=== PATIENT | male | born 1955 | race Caucasian/White ===

== ENCOUNTER 2018-02-22 18:23 | Emergency (ER) | payer BC, OTHER ==
[2018-02-22] MEDS ORDERED: ONDANSETRON ODT 4 MG TAB (6 TAB/ER DISP) PO PRN (19:39)
[2018-02-22] MEDS ORDERED: CLONIDINE 0.2 MG/24 HR PATCH.TDWK TD ONE (19:39)
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
[2018-02-22 19:53] VITALS: BP 132/65
== END 2018-02-22 19:53 | disposition home or self-care (01) ==
LOC: ER 18:23
DX: T40.601A Poisoning by unspecified narcotics, accidental (unintentional), initial encounter (principal); F17.200 Nicotine dependence, unspecified, uncomplicated; X58.XXXA Exposure to other specified factors, initial encounter
CPT/HCPCS: 99284; J3490

== ENCOUNTER 2018-08-16 09:18 | Emergency (ER) | payer SELFPAY ==
--- NOTE | 2018-08-16 09:58 | ER Document Report ---
HPI - HPI Patient complains to provider of: Constipation Onset: Other - 4 days Quality of pain: Cramping, Pressure Pain Level: 3 Context: Patient presents complaining of constipation for the past 4 days. Patient has used a Fleet enema at home without improvement of his symptoms. Patient states that he typically has a bowel movement every day. Patient states that he has not been drinking as much water recently and has been drinking more soda which he feels is responsible for his symptoms. Patient does take narcotics chronically for back pain. Associated Symptoms: Other - Obstipation. denies: Fever, Nausea, Vomiting Exacerbated by: Denies Relieved by: Denies Similar symptoms previously: No Recently seen / treated by doctor: No - ROS ROS below otherwise negative: Yes Systems Reviewed and Negative: Yes All other systems reviewed and negative - CONSTITUTIONAL Constitutional: DENIES: Fever, Chills - GASTROINTESTINAL Gastrointestinal: REPORTS: Constipation. DENIES: Abdominal Pain, Nausea, Patient vomiting Notes: Patient complains of hemorrhoids - MUSCULOSKELETAL Musculoskeletal: REPORTS: Back Pain - Chronic. DENIES: Extremity pain - DERM Skin Color: Normal Skin Problems: None Past Medical History - General Information source: Patient - Social History Smoking Status: Current Every Day Smoker Chew tobacco use (# tins/day): No Smoking Education Provided: Yes Frequency of alcohol use: None Drug Abuse: None Occupation: [employer] Family History: Reviewed & Not Pertinent Patient has suicidal ideation: No Patient has homicidal ideation: No Renal/ Medical History: Denies: Hx Peritoneal Dialysis Musculoskeletal Medical History: Reports Other - Chronic back pain Past Surgical History: Reports: Other - Cyst removal Vertical Provider Document - CONSTITUTIONAL Agree With Documented VS: Yes Exam Limitations: No Limitations General Appearance: WD/WN, No Apparent Distress - INFECTION CONTROL TRAVEL OUTSIDE OF THE [place] IN LAST 30 DAYS: No - HEENT HEENT: Atraumatic, Normocephalic - NECK Neck: Normal Inspection, Supple - RESPIRATORY Respiratory: Breath Sounds Normal, No Respiratory Distress - CARDIOVASCULAR Cardiovascular: Regular Rate, Regular Rhythm - GI/ABDOMEN Gastrointestinal: Abdomen Soft, Abdomen Non-Tender, No Organomegaly, Normal Bowel Sounds - BACK Back: Normal Inspection. negative: CVA Tenderness-Right, CVA Tenderness-Left - MUSCULOSKELETAL/EXTREMETIES Musculoskeletal/Extremeties: VAZQUEZ LANGLEY - NEURO Level of Consciousness: Awake, Alert, Appropriate Motor/Sensory: No Motor Deficit - DERM Integumentary: Warm, Dry, No Rash Course - Re-evaluation Re-evalutation: 08/16/18 10:57 Patient with good response after enema and feels much better, patient states he is ready to be discharged. Abdomen soft nontender. - Vital Signs Vital signs: Temp Pulse Resp BP Pulse Ox 97.7 F 86 16 157/79 H 94 08/16/18 09:22 08/16/18 09:22 08/16/18 09:22 08/16/18 09:22 08/16/18 09:22 - Diagnostic Test Radiology reviewed: Image reviewed, Reports reviewed Discharge - Discharge Clinical Impression: Constipation Qualifiers: Constipation type: unspecified constipation type Qualified Code(s): K59.00 - Constipation, unspecified Condition: Stable Disposition: HOME, SELF-CARE Instructions: Constipation ([facility]) Additional Instructions: Return immediately for any new or worsening symptoms Followup with your primary care provider, call tomorrow to make a followup appointment Take a stool softener [id number] to help prevent constipation. Stay well- hydrated Forms: Smoking Cessation Education Referrals: [facility] [Provider Group] - Follow up as needed
[2018-08-16] MEDS ORDERED: MINERAL OIL 30 ML UDCUP PR ONE (10:05)
[2018-08-16] MEDS ORDERED: MAGNESIUM CITRATE 296 ML BOTTLE PO ONE (10:06)
--- NOTE | 2018-08-16 10:15 | RADIOLOGY REPORT (SQ) ---
EXAM DESCRIPTION: KUB/ABDOMEN (SINGLE VIEW) COMPLETED DATE/TIME: 08/16/2018 10:01 am REASON FOR STUDY: constipation COMPARISON: None. NUMBER OF VIEWS: Two views. TECHNIQUE: Supine and erect/decubitus radiographic images of the abdomen acquired. LIMITATIONS: None. FINDINGS: FREE AIR: None. No abnormal gas collections. LUNG BASES: Clear. BOWEL GAS PATTERN: Nonobstructive pattern. No dilated loops or air fluid levels. CALCIFICATIONS: No suspicious calcifications. SOFT TISSUES: No gross mass or suggestion of organomegaly. HARDWARE: None in the abdomen. BONES: No acute fracture. No worrisome bone lesions. OTHER: No other significant finding. IMPRESSION: NO RADIOGRAPHIC EVIDENCE FOR ACUTE ABDOMINAL DISEASE. TECHNICAL DOCUMENTATION: JOB ID: [id number] [employer]- All Rights Reserved Reading location - IP/workstation name: [email or web address]
[2018-08-16 11:16] VITALS: BP 139/80
== END 2018-08-16 11:15 | disposition home or self-care (01) ==
LOC: ER 09:18
DX: K59.00 Constipation, unspecified (principal); M54.9 Dorsalgia, unspecified; G89.29 Other chronic pain; Z79.899 Other long term (current) drug therapy; F17.200 Nicotine dependence, unspecified, uncomplicated
CPT/HCPCS: 99283; 74018; J3490 ×2

== ENCOUNTER 2018-09-01 05:12 | Emergency (ER) | payer SELFPAY ==
--- NOTE | 2018-09-01 05:32 | RADIOLOGY REPORT (SQ) ---
EXAM DESCRIPTION: XR FOREARM 2 VIEWS COMPLETED DATE/TME: 09/01/2018 00:00 CLINICAL HISTORY: 63 years, Male, needle stuck in arm COMPARISON: None. NUMBER OF VIEWS: Two TECHNIQUE: Two views of the left forearm LIMITATIONS: None. FINDINGS: There are two linear hyperdensities near the volar aspect of the proximal forearm with the largest measuring 1.3 cm and the smaller one measuring 0.5 cm. There is no acute fracture or dislocation. IMPRESSION: Two linear hyperdense foreign bodies near the volar aspect of the proximal forearm. 2011 [employer]- All Rights Reserved
[2018-09-01] MEDS ORDERED: LIDOCAINE 1% INJ-PF (10 MG/ML) 30 ML SDV INJ ONE (06:07)
[2018-09-01] MEDS ORDERED: DIPH/PERTUSS(ACELL)/TETANUS VAC/PF 0.5 ML SYR (>=10YO) IM ONE (06:11)
--- NOTE | 2018-09-01 06:11 | ER Document Report ---
ED Foreign Body - General Chief Complaint: Foreign Body Stated Complaint: ARM PAIN Time Seen by Provider: 09/01/18 06:03 Mode of Arrival: Ambulatory Information source: Patient Notes: Patient was injecting heroine into his LUE when the needle broke. Patient says this happened just prior to arrival. TRAVEL OUTSIDE OF THE [place] IN LAST 30 DAYS: No - HPI Location of foreign body: Upper extremity Onset: Just prior to arrival Onset/Duration: Sudden Quality of pain: Achy Severity: Mild Context: Self-inflicted Associated symptoms: None Exacerbated by: Denies Relieved by: Denies Similar symptoms previously: No Recently seen / treated by doctor: No - Related Data Allergies/Adverse Reactions: Penicillins Allergy (Verified 08/16/18 09:19) Past Medical History - Social History Smoking Status: Current Every Day Smoker Family History: Reviewed & Not Pertinent Renal/ Medical History: Denies: Hx Peritoneal Dialysis Past Surgical History: Reports: Other - Cyst removal Review of Systems - Review of Systems Constitutional: No symptoms reported EENT: No symptoms reported Cardiovascular: No symptoms reported Respiratory: No symptoms reported Gastrointestinal: No symptoms reported Musculoskeletal: No symptoms reported Skin: Lesions Hematologic/Lymphatic: No symptoms reported Neurological/Psychological: No symptoms reported -: Yes All other systems reviewed and negative Physical Exam - Vital signs Vitals: Temp Pulse Resp BP Pulse Ox 97.3 F 87 16 165/85 H 96 09/01/18 05:15 09/01/18 05:15 09/01/18 05:15 09/01/18 05:15 09/01/18 05:15 - Notes Notes: PHYSICAL EXAMINATION: GENERAL: Well-appearing, well-nourished and in no acute distress. HEAD: Atraumatic, normocephalic. EYES: Pupils equal round and reactive to light, extraocular movements intact, sclera anicteric, conjunctiva are normal. ENT: Nares patent, oropharynx clear without exudates. Moist mucous membranes. NECK: Normal range of motion, supple without lymphadenopathy LUNGS: Breath sounds clear to auscultation bilaterally and equal. No wheezes rales or rhonchi. HEART: Regular rate and rhythm without murmurs ABDOMEN: Soft, nontender, nondistended abdomen. No guarding, no rebound. No masses appreciated. Musculoskeletal: Normal range of motion, no pitting or edema. No cyanosis. 2+ radial pulse NEUROLOGICAL: Cranial nerves grossly intact. Normal speech, normal gait. Normal sensory, motor exams PSYCH: Normal mood, normal affect. SKIN: Warm, Dry, area of induration to the L forearm near the antecubital fossa. No fluctuance appreciated. No purulent drainage. Course - Re-evaluation Re-evalutation: 09/01/18 08:00 I spoke with the general surgeon, Dr. Carmona, as one of the needles is pretty deep. He recommends starting PO antibiotics and having the patient follow up in his office this week. I discussed the plan of care with the patient. He's agreeable with following up outpatient. - Vital Signs Vital signs: Temp Pulse Resp BP Pulse Ox 97.3 F 87 16 165/85 H 96 09/01/18 05:15 09/01/18 05:15 09/01/18 05:15 09/01/18 05:15 09/01/18 05:15 Discharge - Discharge Clinical Impression: Foreign body (FB) in soft tissue Condition: Good Disposition: HOME, SELF-CARE Instructions: Foreign Body ([facility]) Prescriptions: Doxycycline Hyclate 100 mg PO BID #14 capsule Referrals: ROBINSON CARMONA MD [[facility]] - Follow up as needed
[2018-09-01 08:18] VITALS: BP 160/80
== END 2018-09-01 08:19 | disposition home or self-care (01) ==
LOC: ER 05:12
DX: S41.142A Puncture wound with foreign body of left upper arm, initial encounter (principal); W46.1XXA Contact with contaminated hypodermic needle, initial encounter; F17.200 Nicotine dependence, unspecified, uncomplicated
CPT/HCPCS: 99283; 90471; 73090; 90715; J3490

== ENCOUNTER 2018-09-02 09:49 | Day surgery (SDC) | payer SELFPAY ==
[~2018-09-02 09:49] MED LIST: DEXTROSE 5%-LACTATED RINGERS 1,000 ML IV PRN; VANCOMYCIN HCL 1,000 MG in DEXTROSE 5%-WATER 250 ML IV PRN
[2018-09-02] MEDS ORDERED: ALBUTEROL SULFATE 0.083% NEB 2.5 MG/3 ML AMPUL NEB ONE (10:08)
[2018-09-02 10:41] LABS: HEMATOCRIT 43.9 % (37.9-51.0); HEMOGLOBIN 15.2 g/dL (13.5-17.0); MEAN CORPUSCULAR HEMOGLOBIN 27.5 pg (27.0-33.4); MEAN CORPUSCULAR HGB CONC 34.6 g/dL (32.0-36.0); MEAN CORPUSCULAR VOLUME 80 fl (80-97); PLATELET COUNT 177 10^3/uL (150-450); RED BLOOD COUNT 5.51 10^6/uL (4.35-5.55); RED CELL DISTRIBUTION WIDTH 15.5 % (11.5-14.0); WHITE BLOOD COUNT 7.4 10^3/uL (4.0-10.5)
[2018-09-02] MEDS ORDERED: LIDOCAINE 1% INJ-PF (10 MG/ML) 30 ML SDV ONE (10:53)
[2018-09-02] MEDS ORDERED: FENTANYL CITRATE INJ/PF 100 MCG/2 ML AMPUL ONE (10:54)
[2018-09-02] MEDS ORDERED: ONDANSETRON HCL INJ/PF 4 MG/2 ML SDV ONE (10:54)
[2018-09-02] MEDS ORDERED: PROPOFOL INJ 200 MG/20 ML VIAL IV ONE (10:54)
[2018-09-02] MEDS ORDERED: MIDAZOLAM 2 MG/2 ML INJ ONE (10:54)
[2018-09-02] MEDS ORDERED: ACETAMINOPHEN 1,000 MG/100 ML RTUPB IV ONE (10:54)
[2018-09-02] MEDS ORDERED: OXYCODONE-ACETAMINOPHEN 5-325 MG TABLET PO PRN ×2 (11:29)
[2018-09-02] MEDS ORDERED: DIPHENHYDRAMINE HCL 50 MG/ML VIAL IV PRN (11:29)
[2018-09-02] MEDS ORDERED: PROMETHAZINE HCL INJ 25 MG/1 ML VIAL IV PRN ×2 (11:29)
[2018-09-02] MEDS ORDERED: FENTANYL CITRATE INJ/PF 100 MCG/2 ML AMPUL IV PRN ×3 (11:29)
[2018-09-02] MEDS ORDERED: MEPERIDINE HCL/PF INJ 25 MG/1 ML DISP.SYRIN IV PRN (11:29)
[2018-09-02] MEDS ORDERED: KETOROLAC TROMETHAMINE INJ/PF 30 MG/1 ML SDV ONE (12:26)
--- NOTE | 2018-09-02 12:46 | OPERATIVE REPORT E ---
Operative Report NAME: JANETH VARGAS : 1955 AGE: 63Y DATE OF SURGERY: 09/02/2018 ROOM: PREOPERATIVE DIAGNOSIS: Foreign bodies, needle x2, in the left forearm. POSTOPERATIVE DIAGNOSIS: Foreign bodies, needle x2, in the left forearm. OPERATION: Removal of foreign bodies in the left forearm under fluoroscopy guidance. SURGEON: ROBINSON LONG M.D. ANESTHESIA: General. INDICATIONS: This is a 63-year-old male, IV drug abuser, who claims a needle broke in his left forearm yesterday and he went to ED. X-rays of the left forearm revealed a needle that is about 2 cm long and a smaller one about 1 cm long. Patient was taken to the OR for removal of these foreign bodies. DESCRIPTION OF PROCEDURE: After adequate general anesthesia, the patient was placed in a supine position and the left arm exposed and subsequently prepped and draped in the usual sterile fashion. Appropriate time out was then called. Two long 25-gauge needles were placed along the left upper forearm and x-rays were done to localize the needle. A longitudinal incision was made over the elevated area and a needle about 2 cm long was removed. Next, the other needle was then identified and localized using the same 25-gauge needles. At this point it was noted to be quite relatively superficial towards the mid antecubital area. A longitudinal incision was made and the vein identified and pulled up. Distally towards the wrist the vein was somewhat thrombosed but proximally appears to be quite patent. Next, the vein was lifted up and a small needle extruded out and pulled out. It was a small insulin needle in size, roughly about 1 cm long. Next, all the incisions were partially closed with subcuticular 2-0 Vicryl undyed. A smaller incision was made in between the 2 incisions that was also primarily closed with subcutaneous 2-0 Vicryl. Sterile dressings were placed over the operative site. Needle, instrument, and sponge counts were all correct. Estimated blood loss was about 5 mL. Final x-ray was done which showed no more foreign body in the left forearm. The patient tolerated the procedure well and was brought to the recovery room in satisfactory condition. DICTATING PHYSICIAN: ROBINSON LONG M.D. [id number] PHY#: [id number] ID: [id number] JOB#: [id number] ACCT: [id number] cc:ROBINSON LONG M.D. >
[2018-09-02] MEDS ORDERED: FLUMAZENIL INJ 0.5 MG/5 ML VIAL ONE (13:10)
[2018-09-02 15:22] VITALS: BP 115/68
--- NOTE | 2018-09-02 16:28 | RADIOLOGY REPORT (SQ) ---
EXAM DESCRIPTION: ELBOW LEFT OVER 2 VIEWS; NO CHG FLUORO COMPLETED DATE/TIME: 09/02/2018 3:13 pm REASON FOR STUDY: FB REMOVAL REMOVAL LEFT ELBOW ASST WITH FLUORO IN OR M79.5 RESIDUAL FOREIGN BODY IN SOFT TISSUE COMPARISON: Left forearm two views 09/01/2018 FLUOROSCOPY TIME: 0.2 minutes 13 digital C-arm images saved to PACS. TECHNIQUE: Intra-operative images acquired during surgical procedure to evaluate progress. NUMBER OF IMAGES: 13 digital C-arm images LIMITATIONS: None. FINDINGS: Multiple C-arm images are submitted during foreign body removal from the left antecubital fossa. Final AP and lateral left elbow fluoroscopic images demonstrate that the foreign bodies have been removed. Please see the operative report for further details IMPRESSION: Intra procedural imaging and fluoro COMMENT: Quality ID [id number]: Final reports for procedures using fluoroscopy that document radiation exp osure indices, or exposure time and number of fluorographic images (if radiation exposure indices are not available) Please consult full operative report of the attending physician for description of the procedure. TECHNICAL DOCUMENTATION: JOB ID: [id number] [employer]- All Rights Reserved Reading location - IP/workstation name: [email or web address]
--- NOTE | 2018-09-02 16:28 | RADIOLOGY REPORT (SQ) ---
EXAM DESCRIPTION: ELBOW LEFT OVER 2 VIEWS; NO CHG FLUORO COMPLETED DATE/TIME: 09/02/2018 3:13 pm REASON FOR STUDY: FB REMOVAL REMOVAL LEFT ELBOW ASST WITH FLUORO IN OR M79.5 RESIDUAL FOREIGN BODY IN SOFT TISSUE COMPARISON: Left forearm two views 09/01/2018 FLUOROSCOPY TIME: 0.2 minutes 13 digital C-arm images saved to PACS. TECHNIQUE: Intra-operative images acquired during surgical procedure to evaluate progress. NUMBER OF IMAGES: 13 digital C-arm images LIMITATIONS: None. FINDINGS: Multiple C-arm images are submitted during foreign body removal from the left antecubital fossa. Final AP and lateral left elbow fluoroscopic images demonstrate that the foreign bodies have been removed. Please see the operative report for further details IMPRESSION: Intra procedural imaging and fluoro COMMENT: Quality ID [id number]: Final reports for procedures using fluoroscopy that document radiation exp osure indices, or exposure time and number of fluorographic images (if radiation exposure indices are not available) Please consult full operative report of the attending physician for description of the procedure. TECHNICAL DOCUMENTATION: JOB ID: [id number] [employer]- All Rights Reserved Reading location - IP/workstation name: [email or web address]
--- NOTE | 2018-09-02 22:38 | EKG REPORT ---
SEVERITY:- ABNORMAL ECG - SINUS RHYTHM LAD, CONSIDER LEFT ANTERIOR FASCICULAR BLOCK : Confirmed by: Aracelis Yin MD 02-Sep-2018 22:37:37
== END 2018-09-02 15:15 | disposition home or self-care (01) ==
LOC: OROUT 09:49
PROVIDERS: ATTEND Surgery
DX: M79.5 Residual foreign body in soft tissue (principal); F11.10 Opioid abuse, uncomplicated; M19.90 Unspecified osteoarthritis, unspecified site; R06.02 Shortness of breath; F17.210 Nicotine dependence, cigarettes, uncomplicated; I10 Essential (primary) hypertension; Z88.0 Allergy status to penicillin; Z86.010 Personal history of colon polyps
CPT/HCPCS: 36415; 85027; 73080; 93005; 93010; 25248; J3490; J2250; J1885; J2405; J7060; J2704; J3370; J0131; 00400; J3010

== ENCOUNTER 2019-01-29 19:16 | Inpatient (IN) | payer BC ==
[2019-01-29] MEDS ORDERED: VANCOMYCIN HCL INJ 1000 MG VIAL IV ONE (21:34)
--- NOTE | 2019-01-29 21:40 | ER Document Report ---
ED Medical Screen (RME) - General Chief Complaint: Abscess Stated Complaint: SWOLLEN LEFT ARM Time Seen by Provider: 01/29/19 21:32 Notes: Patient is a 63-year-old male admitted IV drug abuser presents to the emergency department with redness and swelling noted to the left forearm. Patient states with onset 3 days ago. Patient states he has had a past infection like this on his right knee. GENERAL: Alert, interacts well. No acute distress. EXTREMITIES: Moves all 4 extremities spontaneously. normal radial and dorsalis pedis pulses bilaterally. No cyanosis. Significant erythema and swelling noted to the entire left forearm. It is circumferential and pitting edema noted. I have greeted and performed a rapid initial assessment of this patient. A comprehensive ED assessment and evaluation of the patient, analysis of test results and completion of the medical decision making process will be conducted by additional ED providers. TRAVEL OUTSIDE OF THE [place] IN LAST 30 DAYS: No - Related Data Allergies/Adverse Reactions: Penicillins Allergy (Verified 08/16/18 09:19) Past Medical History - Social History Frequency of alcohol use: None Drug Abuse: None - Past Medical History Cardiac Medical History: Denies: Hx Coronary Artery Disease, Hx Heart Attack, Hx Hypertension Pulmonary Medical History: Reports: Hx COPD Denies: Hx Asthma, Hx Bronchitis, Hx Pneumonia Neurological Medical History: Denies: Hx Cerebrovascular Accident, Hx Seizures Renal/ Medical History: Denies: Hx Peritoneal Dialysis Musculoskeltal Medical History: Reports Hx Arthritis Past Surgical History: Reports: Other - Cyst removal - Immunizations Hx Diphtheria, Pertussis, Tetanus Vaccination: Yes History of Influenza Vaccine for 08/2017 - 01/2018 Season: No Physical Exam - Vital signs Vitals: Temp Pulse Resp BP Pulse Ox 99.4 F 98 16 132/69 H 96 01/29/19 20:05 01/29/19 20:05 01/29/19 20:05 01/29/19 20:05 01/29/19 20:05 Course - Vital Signs Vital signs: Temp Pulse Resp BP Pulse Ox 99.4 F 98 16 132/69 H 96 01/29/19 20:05 01/29/19 20:05 01/29/19 20:05 01/29/19 20:05 01/29/19 20:05
[2019-01-29 23:45] LABS: ABSOLUTE EOSINOPHILS # (AUTO) 0.1 10^3/uL (0.0-0.6); ABSOLUTE LYMPHOCYTES (AUTO) 1.6 10^3/uL (0.5-4.7); ABSOLUTE MONOCYTES (AUTO) 1.2 10^3/uL (0.1-1.4); BASOPHILS % (AUTO) 0.2 % (0-2); EOSINOPHILS % (AUTO) 0.4 % (0-6); HEMATOCRIT 41.6 % (37.9-51.0); HEMOGLOBIN 14.1 g/dL (13.5-17.0); LYMPHOCYTES % (AUTO) 10.9 % (13-45); MEAN CORPUSCULAR HEMOGLOBIN 26.8 pg (27.0-33.4); MEAN CORPUSCULAR HGB CONC 33.9 g/dL (32.0-36.0); MEAN CORPUSCULAR VOLUME 79 fl (80-97); MONOCYTES % (AUTO) 7.8 % (3-13); PLATELET COUNT 296 10^3/uL (150-450); RED BLOOD COUNT 5.26 10^6/uL (4.35-5.55); RED CELL DISTRIBUTION WIDTH 14.6 % (11.5-14.0); SEGMENTED NEUTROPHILS % (AUTO) 80.7 % (42-78); TOTAL CELLS COUNTED % (AUTO) 100 %; WHITE BLOOD COUNT 14.9 10^3/uL (4.0-10.5)
[2019-01-30] MEDS ORDERED: CEFTRIAXONE INJ 1000 MG VIAL IV ONE (00:01)
[2019-01-30] MEDS ORDERED: KETOROLAC TROMETHAMINE INJ/PF 30 MG/1 ML SDV IV ONE (00:02)
[2019-01-30 00:08] LABS: ALANINE AMINOTRANSFERASE 58 U/L (21-72); ALBUMIN 3.9 g/dL (3.5-5.0); ALKALINE PHOSPHATASE 79 U/L (38-126); ANION GAP 10 (5-19); ASPARTATE AMINO TRANSFERASE 68 U/L (17-59); BILIRUBIN,DIRECT 0.2 mg/dL (0.0-0.4); BILIRUBIN,TOTAL 0.5 mg/dL (0.2-1.3); BLOOD UREA NITROGEN 11 mg/dL (7-20); CALCIUM 8.8 mg/dL (8.4-10.2); CARBON DIOXIDE 32 mmol/L (22-30); CHLORIDE 92 mmol/L (98-107); GLUCOSE 90 mg/dL (75-110); POTASSIUM 4.3 mmol/L (3.6-5.0); SODIUM 134.2 mmol/L (137-145); TOTAL PROTEIN 7.5 g/dL (6.3-8.2)
--- NOTE | 2019-01-30 00:11 | ER Document Report ---
ED General - General Chief Complaint: Abscess Stated Complaint: SWOLLEN LEFT ARM Time Seen by Provider: 01/29/19 21:32 Notes: Patient is a 63-year-old male with a past medical history of IV drug use who presents with left forearm swelling and pain. States that it started 4-5 days ago, has gotten progressively worse over that time. Has a severe, throbbing, constant pain to the area. Touching the area worsens the pain. Nothing improves the pain. Denies history of similar issues to this area in the past. He is right-hand dominant. Denies fever or constitutional symptoms but does note that he feels somewhat nauseated. Has not seen his primary care doctor regarding today's concerns. States that he no longer uses IV drugs, recently got started on a methadone clinic. TRAVEL OUTSIDE OF THE [place] IN LAST 30 DAYS: No - Related Data Allergies/Adverse Reactions: Penicillins Allergy (Verified 08/16/18 09:19) Past Medical History - General Information source: Patient - Social History Smoking Status: Current Every Day Smoker Frequency of alcohol use: None Drug Abuse: None Family History: Reviewed & Not Pertinent Patient has suicidal ideation: No Patient has homicidal ideation: No - Past Medical History Cardiac Medical History: Denies: Hx Coronary Artery Disease, Hx Heart Attack, Hx Hypertension Pulmonary Medical History: Reports: Hx COPD Denies: Hx Asthma, Hx Bronchitis, Hx Pneumonia Neurological Medical History: Denies: Hx Cerebrovascular Accident, Hx Seizures Renal/ Medical History: Denies: Hx Peritoneal Dialysis Musculoskeletal Medical History: Reports Hx Arthritis Past Surgical History: Reports: Other - Cyst removal - Immunizations Hx Diphtheria, Pertussis, Tetanus Vaccination: Yes Review of Systems - Review of Systems Notes: Constitutional: Negative for fever. HENT: Negative for sore throat. Eyes: Negative for visual changes. Cardiovascular: Negative for chest pain. Respiratory: Negative for shortness of breath. Gastrointestinal: Negative for abdominal pain, vomiting or diarrhea. Genitourinary: Negative for dysuria. Musculoskeletal: Positive for left arm pain Skin: Positive for cellulitis of the left upper extremity with associated abscess Neurological: Negative for headaches, weakness or numbness. 10 point ROS negative except as marked above and in HPI. Physical Exam - Vital signs Vitals: Temp Pulse Resp BP Pulse Ox 99.4 F 98 16 132/69 H 96 01/29/19 20:05 01/29/19 20:05 01/29/19 20:05 01/29/19 20:05 01/29/19 20:05 Interpretation: Normal Notes: PHYSICAL EXAMINATION: GENERAL: Appears older than stated age, in moderate pain but no acute distress HEAD: Atraumatic, normocephalic. EYES: Pupils equal round and reactive to light, extraocular movements intact, sclera anicteric, conjunctiva are normal. ENT: nares patent, oropharynx clear without exudates. Moderately dry mucous membranes. NECK: Normal range of motion, supple without lymphadenopathy LUNGS: Breath sounds clear to auscultation bilaterally and equal. No wheezes rales or rhonchi. HEART: Regular tachycardia without murmurs ABDOMEN: Soft, nontender, normoactive bowel sounds. No guarding, no rebound. No masses appreciated. EXTREMITIES: The left forearm is prominently swollen with an associated 7 x 10 c m abscess on the dorsal aspect of the forearm with circumferential swelling of the forearm itself. NEUROLOGICAL: No focal neurological deficits. Moves all extremities spontaneously and on command. PSYCH: Normal mood, normal affect. SKIN: Warm, Dry, normal turgor, there is extensive cellulitis from the level of the wrist extending up to the midway along the deltoid. associated axillary lymphadenopathy is present. Course - Re-evaluation Re-evalutation: 01/30/19 00:10 Patient presents with an extraordinarily large abscess in the left forearm measuring approximately 7 x 10 cm in size, bedside ultrasound shows diffuse fluid collection and cobblestoning pattern. I did have the surgeon Dr. Montoya come to evaluate the patient at the bedside, recommends orthopedic involvement given that the erythema spreads past the elbow joint and the patient is holding the joint in flexion. The erythema does extend up along the deltoid and there is axillary lymphadenopathy. Patient does meet sepsis criteria given that his heart rate was above 90 at acidosis of 14.9. I did discuss with Dr. Aguiar who states that he will take the patient to the operating room in the morning. The patient has been started on vancomycin and ceftriaxone. 01/30/19 01:08 I did discuss this case again with Dr. Aguiar after obtaining x-rays that do show some subcutaneous gas. This could alternatively be from the patient having tried to poke it earlier today with needles to relieve some of the pressure. No crepitus on exam. I did inform Dr. Aguiar of these findings and he has accepted the patient to his service for operating room in the morning. The patient will remain n.p.o. I have added clindamycin. - Vital Signs Vital signs: Temp Pulse Resp BP Pulse Ox 98.8 F 98 22 H 147/75 H 95 01/30/19 01:01 01/29/19 20:05 01/30/19 01:01 01/30/19 01:01 01/30/19 01:01 - Laboratory Result Diagrams: 01/29/19 23:15 01/29/19 23:15 Laboratory results interpreted by me: 01/29/19 01/29/19 01/30/19 23:15 23:15 00:10 WBC 14.9 H MCV 79 L MCH 26.8 L RDW 14.6 H Seg Neutrophils % 80.7 H Lymphocytes % 10.9 L Absolute Neutrophils 12.0 H Sodium 134.2 L Chloride 92 L Carbon Dioxide 32 H Lactic Acid < 0.5 L AST 68 H - Diagnostic Test Radiology reviewed: Image reviewed, Reports reviewed Radiology results interpreted by me: 01/30/19 02:15 Left forearm x-ray: Soft tissue swelling and associated gas formation Discharge - Discharge Clinical Impression: Abscess of left forearm, Cellulitis of left forearm, IV drug abuse Condition: Fair Disposition: ADMITTED INPATIENT Admitting Provider: [facility] Unit Admitted: Surgical Floor
[2019-01-30 00:26] LABS: VENOUS BLOOD BASE EXCESS 4.6 mmol/L; VENOUS BLOOD HCO3 30.4 mmol/L (20-32); VENOUS BLOOD PCO2 49.6 mmHg (35-63); VENOUS BLOOD PH 7.41 (7.30-7.42)
--- NOTE | 2019-01-30 00:58 | RADIOLOGY REPORT (SQ) ---
EXAM DESCRIPTION: XR FOREARM 2 VIEWS COMPLETED DATE/TME: 01/30/2019 00:09 CLINICAL HISTORY: 63 years, Male, eval gas COMPARISON: 09/01/2018 left forearm NUMBER OF VIEWS: 3 TECHNIQUE: 3 views left forearm LIMITATIONS: None. FINDINGS: Soft tissue gas and swelling along the radial aspect of the mid forearm. No underlying acute osseous abnormality. No radiopaque foreign body. IMPRESSION: Soft tissue gas and swelling as above. No acute osseous abnormality copyright 2010 [employer]- All Rights Reserved
[2019-01-30] MEDS ORDERED: CLINDAMYCIN 600 MG/D5W RTU 600 MG/50 ML RTUPB IV ONE ×2 (01:04→12:51)
--- NOTE | 2019-01-30 06:55 | PDOC H&P ---
History of Present Illness Admission Date/PCP: 01/30/19 01:38 History of Present Illness: JANETH VARGAS is a 63 year old male 63-year-old [id number] white male presents with left forearm pain and functional disability since secondary to an infectious process associated with IV drug abuse. Past Medical History Cardiac Medical History: Denies: Coronary Artery Disease, Myocardial Infarction, Hypertension Pulmonary Medical History: Reports: Chronic Obstructive Pulmonary Disease (COPD) Denies: Asthma, Bronchitis, Pneumonia Neurological Medical History: Denies: Seizures Musculoskeltal Medical History: Reports: Arthritis Hematology: Denies: Anemia Past Surgical History Past Surgical History: Reports: Other - Cyst removal Social History Information Source: Patient, [facility] Smoking Status: Current Every Day Smoker Family History Family History: Reviewed & Not Pertinent Parental Family History Reviewed: No Children Family History Reviewed: No Sibling(s) Family History Reviewed.: No Medication/Allergy Home Medications: Docusate Sodium [Colace] 100 mg PO DAILY 09/02/18 Allergies/Adverse Reactions: Penicillins Allergy (Verified 08/16/18 09:19) Review of Systems ROS unobtainable: Due to mental status All systems: as per H Physical Exam Vital Signs: Temp Pulse Resp BP Pulse Ox 36.9 C 98 15 140/65 H 93 01/30/19 03:59 01/29/19 20:05 01/30/19 05:01 01/30/19 05:01 01/30/19 05:01 Intake & Output 01/28/19 01/29/19 01/30/19 05:59 06:59 06:59 Intake Total 50 Balance 50 Weight 76.2 kg Physical Exam: Middle-aged white male sleeping comfortably on [facility]. Patient barely arousable. General appearance: PRESENT: no acute distress Head exam: PRESENT: normocephalic Respiratory exam: PRESENT: unlabored Cardiovascular exam: PRESENT: RRR Pulses: PRESENT: normal radial pulses Vascular exam: PRESENT: normal capillary refill GI/Abdominal exam: PRESENT: soft Rectal exam: PRESENT: deferred Extremities exam: PRESENT: other - Left dorsal forearm with erythema, induration, and scant drainage. There is epitrochlear as well as axillary adenopathy. Distally there is brisk capillary refill. Motor function and sensory function are inconsistent. Neurological exam: PRESENT: alert, awake, oriented to person, oriented to place, oriented to time, oriented to situation. ABSENT: motor sensory deficit Psychiatric exam: PRESENT: homicidal ideation Results Laboratory Results: 01/29/19 23:15 01/29/19 23:15 01/29/19 01/29/19 01/30/19 23:15 23:15 00:10 WBC 14.9 H RBC 5.26 Hgb 14.1 Hct 41.6 MCV 79 L MCH 26.8 L MCHC 33.9 RDW 14.6 H Plt Count 296 Seg Neutrophils % 80.7 H Lymphocytes % 10.9 L Monocytes % 7.8 Eosinophils % 0.4 Basophils % 0.2 Absolute Neutrophils 12.0 H Absolute Lymphocytes 1.6 Absolute Monocytes 1.2 Absolute Eosinophils 0.1 Absolute Basophils 0.0 VBG pH VBG pCO2 VBG HCO3 VBG Base Excess Sodium 134.2 L Potassium 4.3 Chloride 92 L Carbon Dioxide 32 H Anion Gap 10 BUN 11 Creatinine 0.59 Est GFR ( Amer) > 60 Est GFR (Non-Af Amer) > 60 Glucose 90 Lactic Acid < 0.5 L Calcium 8.8 Total Bilirubin 0.5 AST 68 H ALT 58 Alkaline Phosphatase 79 Total Protein 7.5 Albumin 3.9 01/30/19 00:10 WBC RBC Hgb Hct MCV MCH MCHC RDW Plt Count Seg Neutrophils % Lymphocytes % Monocytes % Eosinophils % Basophils % Absolute Neutrophils Absolute Lymphocytes Absolute Monocytes Absolute Eosinophils Absolute Basophils VBG pH 7.41 VBG pCO2 49.6 VBG HCO3 30.4 VBG Base Excess 4.6 Sodium Potassium Chloride Carbon Dioxide Anion Gap BUN Creatinine Est GFR ( Amer) Est GFR (Non-Af Amer) Glucose Lactic Acid Calcium Total Bilirubin AST ALT Alkaline Phosphatase Total Protein Albumin Impressions: Forearm X-Ray 01/30/19 00:09 IMPRESSION: Soft tissue gas and swelling as above. No acute osseous abnormality copyright 2010 [employer]- All Rights Reserved Status: Imported from PACS Assessment & Plan - Diagnosis (1) Abscess of left forearm Is this a current diagnosis for this admission?: Yes Plan: 63-year-old [id number] white male with a left dorsal forearm abscess secondary to IV drug abuse. Plan will be for a formal surgical I&D today with good deep cultures. Patient on empirical antibiotics prior to this. - Time Time Spent: 50 to 70 Minutes Anticipated discharge: Other Within: Other
[2019-01-30] MEDS ORDERED: LIDOCAINE 2% INJ-PF (100 MG/5 ML) SYRINGE ONE (09:21)
[2019-01-30] MEDS ORDERED: HYDROMORPHONE HCL INJ/PF 2 MG/ML AMPULE ONE (09:22)
[2019-01-30] MEDS ORDERED: ONDANSETRON HCL INJ/PF 4 MG/2 ML SDV ONE (09:22)
[2019-01-30] MEDS ORDERED: PROPOFOL INJ 200 MG/20 ML VIAL IV ONE (09:22)
[2019-01-30] MEDS ORDERED: MIDAZOLAM 2 MG/2 ML INJ ONE (09:22)
[2019-01-30] MEDS ORDERED: DEXAMETHASONE SOD PHOSPHATE INJ 4 MG/1 ML VIAL ONE (09:22)
[2019-01-30] MEDS ORDERED: BACITRACIN INJ 50,000 UNIT VIAL ONE (09:36)
[2019-01-30] MEDS ORDERED: BUPIVACAINE HCL 0.25 % INJ/PF (2.5 MG/1 ML) 30 ML VIAL ONE (09:36)
[2019-01-30] MEDS ORDERED: LIDOCAINE 1%/EPINEPHRINE INJ 20 ML VIAL ONE (09:36)
[2019-01-30] MEDS ORDERED: FENTANYL CITRATE INJ/PF 100 MCG/2 ML AMPUL IV PRN ×3 (10:24)
[2019-01-30] MEDS ORDERED: OXYCODONE-ACETAMINOPHEN 5-325 MG TABLET PO PRN ×2 (10:24)
[2019-01-30] MEDS ORDERED: DIPHENHYDRAMINE HCL 50 MG/ML VIAL IV PRN (10:24)
[2019-01-30] MEDS ORDERED: PROMETHAZINE HCL INJ 25 MG/1 ML VIAL IV PRN ×2 (10:24)
[2019-01-30] MEDS ORDERED: MEPERIDINE HCL/PF INJ 25 MG/1 ML DISP.SYRIN IV PRN (10:24)
[2019-01-30] MEDS ORDERED: ONDANSETRON HCL INJ/PF 4 MG/2 ML SDV IV PRN (10:24)
--- NOTE | 2019-01-30 10:31 | Operative Report ---
Operative Report DATE OF SURGERY: 01/30/19 PREOPERATIVE DIAGNOSIS: Left dorsal forearm abscess POSTOPERATIVE DIAGNOSIS: Abscess extends from the lateral humeral epicondyle to the radiocarpal joint and extends deep to the muscle fascia OPERATION: Irrigation debridement left forearm abscess including skin, subcutaneous tissue, fascia, and muscle SURGEON: NAZARIO LIN ANESTHESIA: GA TISSUE REMOVED OR ALTERED: Cultures x2 to microbiology ESTIMATED BLOOD LOSS: 75 PROCEDURE: With the patient supine on the operative table the left upper extremities prepped and draped in a sterile fashion. An incision is made over the dorsal portion of mid forearm and upon transecting the underlying dermis a large amount of purulent material which is odiferous emanates from the wound. This is milked from the wound. The wound is then explored digitally and all loculations are broken up. The abscess cavity extends from the lateral epicondyle to the radioc arpal joint. There is considerable injury induration in the soft tissue. The wound is then irrigated with pulse lavage using 3 L normal saline containing bacitracin. It is again meticulously debrided at this point. The wound is packed with iodoform gauze and loosely closed with interrupted nylon suture. A sterile compressive dressing was applied and the patient's return to the PACU in satisfactory condition.
[2019-01-30] MEDS ORDERED: SUCCINYLCHOLINE CHLORIDE INJ 200 MG/10 ML VIAL ONE (11:36)
[2019-01-30] MEDS ORDERED: MORPHINE SULFATE 10 MG/ML INJ ONE (11:44)
[2019-01-30] MEDS: MORPHINE SULFATE 10 MG/ML INJ IV PRN ×2 (11:45→22:59)
[2019-01-30] MEDS: CLINDAMYCIN 600 MG/D5W RTU 600 MG/50 ML RTUPB IV SCH ×3 (12:50→17:49)
[2019-01-30] MEDS ORDERED: CEFTRIAXONE 1 GM/D5W RTU 1 GM/50 ML RTUPB IV SCH (22:00)
[2019-01-31] MEDS: CLINDAMYCIN 600 MG/D5W RTU 600 MG/50 ML RTUPB IV SCH ×2 (01:10→06:22)
[2019-01-31] MEDS: MORPHINE SULFATE 10 MG/ML INJ IV PRN ×4 (01:19→08:26)
--- NOTE | 2019-01-31 07:06 | PDOC PROGRESS REPORT ---
Subjective Progress Note for:: 01/31/19 Reason For Visit: LEFT DORSAL FOREARM ABSCESS 63-year-old white male postop day 1 status post I&D of the left forearm for a dorsal abscess. Patient threatening AMA discharge today because of the need to get to a methadone clinic. Physical Exam Vital Signs: Temp Pulse Resp BP Pulse Ox 36.3 C 80 15 126/65 H 93 01/30/19 23:15 01/30/19 23:15 01/30/19 23:15 01/30/19 23:15 01/30/19 23:15 Intake & Output 01/30/19 01/31/19 02/01/19 06:59 06:59 06:59 Intake Total 50 4540 Output Total 4110 Balance 50 430 Weight 76.2 kg 76.4 kg Physical Exam: Weathered appearing middle-aged white male lying in hospital bed in minor distress. He is diaphoretic. General appearance: PRESENT: no acute distress, mild distress Head exam: PRESENT: normocephalic Respiratory exam: PRESENT: unlabored Cardiovascular exam: PRESENT: RRR Pulses: PRESENT: normal radial pulses Vascular exam: PRESENT: normal capillary refill GI/Abdominal exam: PRESENT: soft Rectal exam: PRESENT: deferred Extremities exam: PRESENT: other - Left upper extremity dressing is intact. Induration and erythema seem to be decreased in inspecting the forearm from both edges. Distal neurovascular examination is intact. Neurological exam: PRESENT: alert, awake, oriented to person, oriented to place, oriented to time, oriented to situation. ABSENT: motor sensory deficit Psychiatric exam: PRESENT: appropriate affect, normal mood. ABSENT: homicidal ideation, suicidal ideation Skin exam: PRESENT: dry, intact, warm. ABSENT: cyanosis, rash Results Laboratory Results: 01/29/19 23:15 01/29/19 23:15 Impressions: Forearm X-Ray 01/30/19 00:09 IMPRESSION: Soft tissue gas and swelling as above. No acute osseous abnormality copyright 2010 [employer]- All Rights Reserved Status: Imported from PACS Assessment & Plan - Diagnosis (1) Abscess of left forearm Is this a current diagnosis for this admission?: Yes - She is greatest Plan: Status post I&D now on empiric antibiotics. Plan will be for pain management consult to facilitate communication with the methadone clinic and to make recommendations regarding ongoing pain management therapy. Gram stain and cultures with no growth so far and no information with which to tailor antibiotic therapy - Time Time Spent with patient: 15-24 minutes Anticipated discharge: Home with Homehealth Within: within 24 hours
[2019-01-31 08:37] VITALS: BP 165/81
--- NOTE | 2019-02-02 07:45 | PDOC DISCHARGE SUMMARY ---
General - Admit/Disc Date/PCP Admission Date/Primary Care Provider: 01/30/19 01:38 Discharge Date: 02/01/19 - Discharge Diagnosis (1) Abscess of left forearm Is this a current diagnosis for this admission?: Yes - She is greatest - Additional Information Resuscitation Status: Full Code Home Medications: Oxycodone HCl 15 mg PO Q6HP PRN 01/30/19 Oxycodone HCl [Oxycontin Sr 40 mg Tablet] 40 mg PO Q12 01/30/19 History of Present Illness History of Present Illness: Patient is a 63-year-old white male with a history of IV drug abuse who presents with a dorsal forearm abscess. Hospital Course Hospital Course: Patient undergoes a surgical I&D with packing of Xeroform gauze. Is returned to floor in satisfactory condition. He is quite distraught about not being able to attend his methadone clinic. Pain management is consulted to facilitate this but it does not happen quickly enough for the patient and he signed out of the hospital AGAINST MEDICAL ADVICE. Physical Exam Vital Signs: Temp Pulse Resp BP Pulse Ox 36.3 C 79 20 165/81 H 98 01/31/19 08:00 01/31/19 08:00 01/31/19 08:00 01/31/19 08:00 01/31/19 08:00 Respiratory exam: PRESENT: unlabored Cardiovascular exam: PRESENT: RRR Extremities exam: PRESENT: other Neurological exam: PRESENT: alert, awake, oriented to person, oriented to place, oriented to time, oriented to situation. ABSENT: motor sensory deficit Results Laboratory Results: 01/29/19 23:15 01/29/19 23:15 Impressions: Forearm X-Ray 01/30/19 00:09 IMPRESSION: Soft tissue gas and swelling as above. No acute osseous abnormality copyright 2011 [employer]- All Rights Reserved Status: Imported from PACS Qualifiers - * PATIENT BEING DISCHARGED WITH ANY OF THE FOLLOWING DIAGNOSIS: No VTE patient discharged on overlapping Therapy?: No Reason(s) for not prescribing Overlap Therapy:: Not indicated Plan Discharge Plan: Patient signed out AGAINST MEDICAL ADVICE. Follow-up is uncertain
== END 2019-01-31 10:15 | disposition left against medical advice (07) | DRG 581 ==
LOC: ER 19:16 → EH 01-30 01:38 → 4N 01-30 14:57
PROVIDERS: ADMIT Orthopaedic Surgery; ATTEND Orthopaedic Surgery
PROC: 0KDB0ZZ Extraction of Left Lower Arm and Wrist Muscle, Open Approach (ICD-10-PCS; principal; 2019-01-30 10:45)
DX: L02.414 Cutaneous abscess of left upper limb (principal); F19.10 Other psychoactive substance abuse, uncomplicated; J44.9 Chronic obstructive pulmonary disease, unspecified; M19.90 Unspecified osteoarthritis, unspecified site; F17.210 Nicotine dependence, cigarettes, uncomplicated; Z88.0 Allergy status to penicillin
CPT/HCPCS: 00400; 36415; 80053; 82803; 83605; 85025; 87040; 87070; 87075; 87077; 87186; 87205; 96365; 96366; 96375; 99285; J0330; J0696; J1100; J1170; J1885; J2001; J2250; J2270; J2405; J2704; J3370; J3490

== ENCOUNTER 2019-04-17 09:57 | Emergency (ER) | payer BC ==
[2019-04-17] MEDS ORDERED: IPRATROPIUM/ALBUTEROL 0.5-2.5 MG/3 ML AMPUL NEB ONE (10:16)
--- NOTE | 2019-04-17 10:17 | ER Document Report ---
ED Medical Screen (RME) - General Chief Complaint: Numbness of Arm Stated Complaint: RIGHT ARM NUMBNESS Time Seen by Provider: 04/17/19 10:07 TRAVEL OUTSIDE OF THE [place] IN LAST 30 DAYS: No - HPI Notes: 04/17/19 10:12 Patient is a 63-year-old male with no significant past medical history aside from tobacco abuse and on Suboxone who presents complaining of right arm numbness, pain, and some weakness in his hand that began when he woke up yesterday morning. Patient states that supination worsens his symptoms as well as raising his arm over his head. Patient states that he is smoking "a lot" and on occasion will have some shortness of breath but is currently asymptomatic. He otherwise is eating and drinking without difficulty. Denies PAULSON, fever, neck pain, URI, CP, SOB, Abd pain, or rash. I have treated and performed a rapid initial assessment of this patient. A comprehensive ED assessment and evaluation of the patient, analysis of test results and completion of medical decision making process will be conducted by additional ED providers. PHYSICAL EXAMINATION: GENERAL: Well-appearing, well-nourished and in no acute distress. A&Ox4. Answers questions appropriately. HEAD: Atraumatic, normocephalic. Non-tender. EYES: Pupils equal round and reactive to light, extraocular movements intact, sclera anicteric, conjunctiva are normal. No nystagmus. vis martin intact. NECK: Normal range of motion, supple without lymphadenopathy. No rigidity/meningismus. No midline tenderness. Spurling negative. LUNGS: Breath sounds clear to auscultation bilaterally and equal. No wheezes rales or rhonchi. HEART: Regular rate and rhythm without murmurs, rubs, gallops. ABDOMEN: Soft, nontender, nondistended abdomen. No guarding, no rebound. Normal bowel sounds present. No CVA tenderness bilaterally. Musculoskeletal: Rt arm: FROM to passive/active. Pt does struggle when performing supination. Non-tender. N/v intact distal. 2+ pulse. Ext's otherwise b/l: FROM to passive/active. Strength 5+/5. No deficits noted. No bony tenderness of extremities. Extremities: No cyanosis, clubbing, or edema b/l. Peripheral pulses 2+. Capillary refill less than 2 seconds. NEUROLOGICAL: NIH 0. GCS 15. Cranial nerves grossly intact. Normal speech, normal gait. Normal sensory, motor exams. Reflexes 2+ b/l. DANIELE's negative. Pronator drift negative. Heel/fletcher, finger/nose wnl. PSYCH: Normal mood, normal affect. SKIN: Warm, Dry, normal turgor, no rashes or lesions noted. - Related Data Allergies/Adverse Reactions: Penicillins Allergy (Verified 04/17/19 09:58) Past Medical History - Past Medical History Cardiac Medical History: Denies: Hx Coronary Artery Disease, Hx Heart Attack, Hx Hypertension Pulmonary Medical History: Reports: Hx COPD Denies: Hx Asthma, Hx Bronchitis, Hx Pneumonia Neurological Medical History: Denies: Hx Cerebrovascular Accident, Hx Seizures Renal/ Medical History: Denies: Hx Peritoneal Dialysis Musculoskeltal Medical History: Reports Hx Arthritis Past Surgical History: Reports: Other - Cyst removal - Immunizations Hx Diphtheria, Pertussis, Tetanus Vaccination: Yes History of Influenza Vaccine for 08/2017 - 01/2018 Season: No Physical Exam - Vital signs Vitals: Temp Pulse Resp BP Pulse Ox 97.7 F 72 18 141/81 H 94 04/17/19 10:03 04/17/19 10:03 04/17/19 10:03 04/17/19 10:03 04/17/19 10:03 Course - Vital Signs Vital signs: Temp Pulse Resp BP Pulse Ox 97.7 F 72 18 141/81 H 94 04/17/19 10:03 04/17/19 10:03 04/17/19 10:03 04/17/19 10:03 04/17/19 10:03
--- NOTE | 2019-04-17 11:11 | RADIOLOGY REPORT (SQ) ---
EXAM DESCRIPTION: CT HEAD WITHOUT COMPLETED DATE/TIME: 04/17/2019 11:03 am REASON FOR STUDY: rt arm tingling/weakness/pain COMPARISON: None. TECHNIQUE: Axial images acquired through the brain without intravenous contrast. Images reviewed wi th bone, brain and subdural windows. Additional sagittal and coronal reconstructions were generated. Images stored on PACS. All CT scanners at this facility use dose modulation, iterative reconstruction, and/or weight based d osing when appropriate to reduce radiation dose to as low as reasonably achievable (ALARA). [facility]: Dose Right [facility]: CareDose [facility]: Dose Right [facility]: Teradose 4D [facility]: [employer] RADIATION DOSE: CT Rad equipment meets quality standard of care and radiation dose reduction techniq ues were employed. CTDIvol: 53.2 mGy. DLP: 1097 mGy-cm. mGy. LIMITATIONS: None. FINDINGS: VENTRICLES: Normal size and contour. CEREBRUM: No masses. No hemorrhage. No midline shift. No evidence for acute infarction. Normal gra y/white matter differentiation. No areas of low density in the white matter. CEREBELLUM: No masses. No hemorrhage. No alteration of density. No evidence for acute infarction. EXTRAAXIAL SPACES: No fluid collections. No masses. ORBITS AND GLOBE: No intra- or extraconal masses. Normal contour of globe without masses. CALVARIUM: No fracture. PARANASAL SINUSES: No fluid or mucosal thickening. SOFT TISSUES: No mass or hematoma. OTHER: No other significant finding. IMPRESSION: NORMAL BRAIN CT WITHOUT CONTRAST. EVIDENCE OF ACUTE STROKE: NO. COMMENT: Quality ID # [id number]: Final reports with documentation of one or more dose reduction techniques (e.g., Automated exposure control, adjustment of the mA and/or kV according to patient size, use of iterative reconstruction technique) TECHNICAL DOCUMENTATION: JOB ID: [id number] [employer]- All Rights Reserved Reading location - IP/workstation name: [email or web address]
[2019-04-17 11:14] LABS: ABSOLUTE EOSINOPHILS # (AUTO) 0.1 10^3/uL (0.0-0.6); ABSOLUTE LYMPHOCYTES (AUTO) 2.2 10^3/uL (0.5-4.7); ABSOLUTE MONOCYTES (AUTO) 0.4 10^3/uL (0.1-1.4); ABSOLUTE NEUT (AUTO) 3.7 10^3/uL (1.7-8.2); BASOPHILS % (AUTO) 0.3 % (0-2); EOSINOPHILS % (AUTO) 2.2 % (0-6); HEMATOCRIT 46.3 % (37.9-51.0); HEMOGLOBIN 15.4 g/dL (13.5-17.0); LYMPHOCYTES % (AUTO) 33.5 % (13-45); MEAN CORPUSCULAR HGB CONC 33.4 g/dL (32.0-36.0); MEAN CORPUSCULAR VOLUME 84 fl (80-97); MONOCYTES % (AUTO) 6.7 % (3-13); PLATELET COUNT 194 10^3/uL (150-450); RED BLOOD COUNT 5.52 10^6/uL (4.35-5.55); RED CELL DISTRIBUTION WIDTH 16.7 % (11.5-14.0); SEGMENTED NEUTROPHILS % (AUTO) 57.3 % (42-78); TOTAL CELLS COUNTED % (AUTO) 100 %; WHITE BLOOD COUNT 6.5 10^3/uL (4.0-10.5)
--- NOTE | 2019-04-17 11:19 | RADIOLOGY REPORT (SQ) ---
EXAM DESCRIPTION: CHEST 2 VIEWS COMPLETED DATE/TIME: 04/17/2019 11:05 am REASON FOR STUDY: cough COMPARISON: Two-view chest 03/14/2008 EXAM PARAMETERS: NUMBER OF VIEWS: two views TECHNIQUE: Digital Frontal and Lateral radiographic views of the chest acquired. RADIATION DOSE: NA LIMITATIONS: none FINDINGS: LUNGS AND PLEURA: No opacities, masses or pneumothorax. No pleural effusion. Hyperinflati on with flattening in the hemidiaphragms from obstructive lung disease MEDIASTINUM AND HILAR STRUCTURES: No masses or contour abnormalities. HEART AND VASCULAR STRUCTURES: Heart normal size. No evidence for failure. BONES: No acute findings. HARDWARE: None in the chest. OTHER: No other significant finding. IMPRESSION: Hyperinflation. No acute infiltrates TECHNICAL DOCUMENTATION: JOB ID: [id number] [employer]- All Rights Reserved Reading location - IP/workstation name: [email or web address]
[2019-04-17 11:26] LABS: INTERNATIONAL RATION (INR) 0.92; PROTHROMBIN TIME 12.8 SEC (11.4-15.4)
[2019-04-17 11:27] LABS: PARTIAL THROMBOPLASTIN TIME 33.6 SEC (23.5-35.8)
[2019-04-17 11:28] LABS: ALANINE AMINOTRANSFERASE 151 U/L (21-72); ALBUMIN 3.8 g/dL (3.5-5.0); ALKALINE PHOSPHATASE 101 U/L (38-126); ANION GAP 9 (5-19); ASPARTATE AMINO TRANSFERASE 130 U/L (17-59); BILIRUBIN,DIRECT 0.3 mg/dL (0.0-0.4); BILIRUBIN,TOTAL 0.5 mg/dL (0.2-1.3); BLOOD UREA NITROGEN 6 mg/dL (7-20); CALCIUM 9.3 mg/dL (8.4-10.2); CARBON DIOXIDE 33 mmol/L (22-30); CHLORIDE 100 mmol/L (98-107); GLUCOSE 84 mg/dL (75-110); POTASSIUM 4.4 mmol/L (3.6-5.0); SODIUM 141.7 mmol/L (137-145); TOTAL PROTEIN 7.4 g/dL (6.3-8.2)
--- NOTE | 2019-04-17 11:30 | ER Document Report ---
ED General - General Chief Complaint: Numbness of Arm Stated Complaint: RIGHT ARM NUMBNESS Time Seen by Provider: 04/17/19 10:07 Information source: Patient Notes: 63-year-old male who states he woke up yesterday with some numbness down the right posterior arm, right elbow, into the dorsum of the right hand. 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 Patient denies any headache, neck pain, trauma, weakness or numbness to the lower extremities. No previous history of similar incidents. 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 TRAVEL OUTSIDE OF THE [place] IN LAST 30 DAYS: No - Related Data Allergies/Adverse Reactions: Penicillins Allergy (Verified 04/17/19 09:58) Past Medical History - Social History Smoking Status: Current Every Day Smoker Chew tobacco use (# tins/day): No Frequency of alcohol use: None Family History: Reviewed & Not Pertinent Patient has suicidal ideation: No Patient has homicidal ideation: No - Past Medical History Cardiac Medical History: Denies: Hx Coronary Artery Disease, Hx Heart Attack, Hx Hypertension Pulmonary Medical History: Reports: Hx COPD Denies: Hx Asthma, Hx Bronchitis, Hx Pneumonia Neurological Medical History: Denies: Hx Cerebrovascular Accident, Hx Seizures Renal/ Medical History: Denies: Hx Peritoneal Dialysis Musculoskeletal Medical History: Reports Hx Arthritis Past Surgical History: Reports: Other - Cyst removal - Immunizations Hx Diphtheria, Pertussis, Tetanus Vaccination: Yes Review of Systems - Review of Systems Constitutional: denies: Fever EENT: Nose discharge Cardiovascular: denies: Chest pain, Palpitations Respiratory: denies: Short of breath Gastrointestinal: denies: Vomiting Skin: Other - no hives Neurological/Psychological: Other - no slurred speech -: Yes All other systems reviewed and negative Physical Exam - Vital signs Vitals: Temp Pulse Resp BP Pulse Ox 97.7 F 72 18 141/81 H 94 04/17/19 10:03 04/17/19 10:03 04/17/19 10:03 04/17/19 10:03 04/17/19 10:03 Interpretation: Normal Notes: Reviewed vital signs and nursing note as charted by RN. CONSTITUTIONAL: Alert and oriented and responds appropriately to questions. Well -appearing; well-nourished HEAD: Normocephalic; atraumatic EYES: PERRL; full extraocular range of motion ENT: Normal nose; no rhinorrhea; moist mucous membranes; pharynx without lesions noted NECK: Supple without meningismus; non-tender; no cervical lymphadenopathy, no masses CARD: Regular rate and rhythm; no murmurs; symmetric distal pulses RESP: Normal chest excursion without splinting or tachypnea; breath sounds clear and equal bilaterally; very minimal end expiratory wheezing without rales or rhonchi ABD/GI: Normal bowel sounds; non-distended; soft, non-tender BACK: The back appears normal and is non-tender to palpation EXT: Normal ROM in all joints; non-tender to palpation; no edema SKIN: No acute lesions noted NEURO: CN 2-12 intact; patient has normal strength and sensation to the left upper extremity and bilateral lower extremities. Regarding the right upper extremity, patient has excellent strength of the shoulders, biceps, triceps, flexion of the forearm, flexion of the fingers, apposition of the index finger and thumb, with some mild weakness with 4 out of 5 strength of dorsiflexion of the right wrist and abduction of the thumb. Sensation is slightly decreased to light touch over the dorsum of the right hand PSYCH: The patient's mood and manner are appropriate. Grooming and personal hygiene are appropriate. Course - Re-evaluation Re-evalutation: 04/17/19 11:22 Given the history and physical examination, it does appear that the patient has a right radial nerve palsy. CT scan and laboratory work was ordered in triage. I will obtain an x-ray of the chest to evaluate for any obvious lung mass as well as an x-ray of the shoulder to evaluate for any obvious bone spurs. If these are unremarkable, the patient's Accu-Chek is normal, I will most likely start the patient on a course of steroids, wrist splint, with strict return precautions and orthopedic follow-up. I do believe that the patient most likely has a radial nerve palsy. 04/17/19 12:36 Labs including glucose and white blood cell count is recorded. CT scan of the head, x-ray of the chest, and x-ray of the right shoulder as recorded. No change in exam. We will place the patient in a Velcro splint and start a short course of steroids with strict return precautions and follow-up with orthopedics. - Vital Signs Vital signs: Temp Pulse Resp BP Pulse Ox 97.7 F 72 18 141/81 H 94 04/17/19 10:03 04/17/19 10:03 04/17/19 10:03 04/17/19 10:03 04/17/19 10:03 - Laboratory Result Diagrams: 04/17/19 10:55 04/17/19 10:55 Laboratory results interpreted by me: 04/17/19 04/17/19 10:55 10:55 RDW 16.7 H Carbon Dioxide 33 H BUN 6 L AST 130 H ALT 151 H Discharge - Discharge Clinical Impression: Radial nerve palsy Condition: Good Disposition: HOME, SELF-CARE Additional Instructions: Come back immediately for any increased weakness, numbness, any swelling, any fever, any headache, neck pain, chest pain, or any other acute problems. Please follow-up with orthopedics as we have discussed. Prescriptions: Prednisone [Deltasone 20 mg Tablet] 3 tab PO DAILY 5 Days tablet Referrals: NAZARIO LIN MD [ACTIVE STAFF] - Follow up as needed
--- NOTE | 2019-04-17 11:42 | RADIOLOGY REPORT (SQ) ---
EXAM DESCRIPTION: SHOULDER RIGHT 2 OR MORE VIEWS COMPLETED DATE/TIME: 04/17/2019 11:29 am REASON FOR STUDY: 15; right radial nerve palsy COMPARISON: None. NUMBER OF VIEWS: Three views. TECHNIQUE: Internal rotation, external rotation, and Y view images acquired of the right shoulder. LIMITATIONS: None. FINDINGS: MINERALIZATION: Normal. BONES: No acute fracture or dislocation. No worrisome bone lesions. JOINTS: Normal glenohumeral alignment. No widening at the AC joint. Mild bony spurring at the AC gustabo int VISUALIZED LUNGS AND RIBS: No pneumothorax. No rib fracture. SOFT TISSUES: No radiopaque foreign body. OTHER: No other significant finding. IMPRESSION: No acute findings TECHNICAL DOCUMENTATION: JOB ID: [id number] [employer]- All Rights Reserved Reading location - IP/workstation name: [email or web address]
[2019-04-17 13:14] VITALS: BP 139/75
== END 2019-04-17 13:18 | disposition home or self-care (01) ==
LOC: ER 09:57
DX: G56.30 Lesion of radial nerve, unspecified upper limb (principal); R20.0 Anesthesia of skin; R53.1 Weakness; J44.9 Chronic obstructive pulmonary disease, unspecified; F17.200 Nicotine dependence, unspecified, uncomplicated; Z88.0 Allergy status to penicillin
CPT/HCPCS: 94640; 99284; 36415; 85025; 85610; 85730; 80053; 71046; 73030; 70450; L3908; J7620

== ENCOUNTER 2019-05-12 22:20 | Emergency (ER) | payer BC ==
--- NOTE | 2019-05-12 23:26 | ER Document Report ---
ED Medical Screen (RME) - General Stated Complaint: HAND BURN Time Seen by Provider: 05/12/19 23:20 Notes: Patient is a 63-year-old male who presents emergency department with a Freon burn to his left hand digits 2 and 3. He states that he is unable to put his and third fingers together due to the swelling. He has been taking his home oxycodone and Percocets to help with the pain. He is currently on pain management. He denies any fevers, but his family member states he has had chills. Exam: Burn noted between second and third fingers of left hand. Purulent drainage noted. I have greeted and performed a rapid initial assessment of this patient. A comprehensive ED assessment and evaluation of the patient, analysis of test results and completion of medical decision making process will be conducted by an additional ED providers. TRAVEL OUTSIDE OF THE [place] IN LAST 30 DAYS: No - Related Data Allergies/Adverse Reactions: Penicillins Allergy (Verified 04/17/19 09:58) Past Medical History - Past Medical History Cardiac Medical History: Denies: Hx Coronary Artery Disease, Hx Heart Attack, Hx Hypertension Pulmonary Medical History: Reports: Hx COPD Denies: Hx Asthma, Hx Bronchitis, Hx Pneumonia Neurological Medical History: Denies: Hx Cerebrovascular Accident, Hx Seizures Renal/ Medical History: Denies: Hx Peritoneal Dialysis Musculoskeltal Medical History: Reports Hx Arthritis Past Surgical History: Reports: Other - Cyst removal - Immunizations Hx Diphtheria, Pertussis, Tetanus Vaccination: Yes History of Influenza Vaccine for 08/2017 - 01/2018 Season: No Physical Exam - Vital signs Vitals: Temp Pulse Resp BP Pulse Ox 98.3 F 98 28 H 156/88 H 95 05/12/19 22:40 05/12/19 22:40 05/12/19 22:40 05/12/19 22:40 05/12/19 22:40 Course - Vital Signs Vital signs: Temp Pulse Resp BP Pulse Ox 98.3 F 98 28 H 156/88 H 95 05/12/19 22:40 05/12/19 22:40 05/12/19 22:40 05/12/19 22:40 05/12/19 22:40
--- NOTE | 2019-05-13 00:50 | RADIOLOGY REPORT (SQ) ---
CLINICAL HISTORY: burn 3 days ago; eval osteomylitis COMPARISON: None. TECHNIQUE: XR HAND 3 OR MORE VIEWS 05/12/2019 11:24 PM CDT FINDINGS: There is no fracture. Joint spaces are preserved. There is moderate dorsal soft tissue swelling. IMPRESSION: No acute osseous findings.
[2019-05-13 00:55] LABS: ABSOLUTE LYMPHOCYTES (AUTO) 2.7 10^3/uL (0.5-4.7); ABSOLUTE MONOCYTES (AUTO) 0.9 10^3/uL (0.1-1.4); ABSOLUTE NEUT (AUTO) 6.6 10^3/uL (1.7-8.2); BASOPHILS % (AUTO) 0.4 % (0-2); EOSINOPHILS % (AUTO) 0.5 % (0-6); HEMOGLOBIN 15.4 g/dL (13.5-17.0); LYMPHOCYTES % (AUTO) 26.4 % (13-45); MEAN CORPUSCULAR HEMOGLOBIN 28.5 pg (27.0-33.4); MEAN CORPUSCULAR HGB CONC 34.4 g/dL (32.0-36.0); MEAN CORPUSCULAR VOLUME 83 fl (80-97); PLATELET COUNT 260 10^3/uL (150-450); RED BLOOD COUNT 5.42 10^6/uL (4.35-5.55); SEGMENTED NEUTROPHILS % (AUTO) 63.7 % (42-78); TOTAL CELLS COUNTED % (AUTO) 100 %; WHITE BLOOD COUNT 10.4 10^3/uL (4.0-10.5)
[2019-05-13 01:13] LABS: ALANINE AMINOTRANSFERASE 102 U/L (21-72); ALBUMIN 4.1 g/dL (3.5-5.0); ALKALINE PHOSPHATASE 82 U/L (38-126); ANION GAP 9 (5-19); ASPARTATE AMINO TRANSFERASE 86 U/L (17-59); BILIRUBIN,DIRECT 0.3 mg/dL (0.0-0.4); BILIRUBIN,TOTAL 0.6 mg/dL (0.2-1.3); BLOOD UREA NITROGEN 12 mg/dL (7-20); CARBON DIOXIDE 30 mmol/L (22-30); CHLORIDE 100 mmol/L (98-107); GLUCOSE 99 mg/dL (75-110); POTASSIUM 4.2 mmol/L (3.6-5.0); SODIUM 139.3 mmol/L (137-145); TOTAL PROTEIN 7.9 g/dL (6.3-8.2)
[2019-05-13] MEDS ORDERED: CLINDAMYCIN 300 MG/D5W RTU 300 MG/50 ML RTUPB IV ONE (05:14)
[2019-05-13] MEDS ORDERED: MORPHINE SULFATE 10 MG/ML INJ IV ONE (06:00)
--- NOTE | 2019-05-13 06:18 | ER Document Report ---
ED General <FERRELL,KEMI - Last Filed: 05/13/19 06:31> - General TRAVEL OUTSIDE OF THE [place] IN LAST 30 DAYS: No <ZAYDA WYLIE - Last Filed: 05/13/19 09:07> - General Chief Complaint: Hand Burn Stated Complaint: HAND BURN Time Seen by Provider: 05/12/19 23:20 Notes: Patient is a 63-year-old male who presents the emergency department with a chief complaint of an abscess between the webspaces of his second and third fingers of his left hand. He states that he was using Frion with a high-pressure injection and he was not wearing his gloves and actually burned his hand. This happened 3 days ago. He states that he has had purulent drainage from his hand and he actually sliced the abscess open. He has not seen a primary care provider in regards to this visit. He is unable to put his second and third fingers together. He is able to bend his fingers, but not make a complete fist. Denies any fever, chills, body aches, or any other symptoms. Past medical history includes chronic pain. (ZAYDA WYLIE) - Related Data Allergies/Adverse Reactions: Penicillins Allergy (Verified 04/17/19 09:58) Past Medical History - Social History Smoking Status: Current Every Day Smoker Family History: Reviewed & Not Pertinent - Past Medical History Cardiac Medical History: Denies: Hx Coronary Artery Disease, Hx Heart Attack, Hx Hypertension Pulmonary Medical History: Reports: Hx COPD Denies: Hx Asthma, Hx Bronchitis, Hx Pneumonia Neurological Medical History: Denies: Hx Cerebrovascular Accident, Hx Seizures Renal/ Medical History: Denies: Hx Peritoneal Dialysis Musculoskeletal Medical History: Reports Hx Arthritis Past Surgical History: Reports: Other - Cyst removal - Immunizations Hx Diphtheria, Pertussis, Tetanus Vaccination: Yes <ZAYDA WYLIE - Last Filed: 05/13/19 09:07> Review of Systems <ZAYDA WYLIE - Last Filed: 05/13/19 09:07> - Review of Systems Notes: REVIEW OF SYSTEMS: CONSTITUTIONAL : Denies recent illness. Denies recent unintentional weight loss. Denies fever, chills, or sweats. EENT: Denies eye, ear, throat, or mouth pain, discharge, or symptoms. Denies nasal or sinus congestion. CARDIOVASCULAR: Denies chest pain. RESPIRATORY: Denies shortness of breath, cough, congestion, difficulty breathing, or wheezing. GASTROINTESTINAL: Denies nausea, vomiting, and diarrhea. Denies abdominal pain. Denies constipation. GENITOURINARY: Denies difficulty urinating, burning, blood in urine, urgency or frequency. MUSCULOSKELETAL: See HPI SKIN: See HPI HEMATOLOGIC : Denies easy bruising or bleeding. LYMPHATIC: Denies swollen, painful, enlarged glands. NEUROLOGICAL: Denies no numbness or tingling denies weakness. Denies headache. Denies altered mental status. Denies alteration in speech. PSYCHIATRIC: Denies stress, anxiety, alteration in sleep patterns, or depression. All other systems reviewed and negative. (ZAYDA WYLIE) - Vital signs Vitals: Temp Pulse Resp BP Pulse Ox 98.3 F 98 28 H 156/88 H 95 05/12/19 22:40 05/12/19 22:40 05/12/19 22:40 05/12/19 22:40 05/12/19 22:40 Course - Laboratory Result Diagrams: 05/13/19 00:20 05/13/19 00:20 <KEMI FERRELL - Last Filed: 05/13/19 06:31> - Laboratory Result Diagrams: 05/13/19 00:20 05/13/19 00:20 <ZAYDA WYLIE - Last Filed: 05/13/19 09:07> - Re-evaluation Re-evalutation: 05/13/19 06:31 I have evaluate the patient in conjunction with Zayda wylie, nurse practi tioner. Patient has high-pressure injection injury to the left hand webspace between digits 3 and 4. He has obvious swelling and abscess in the distal aspect of the hand with purulent drainage coming from the webspace. Injury actually occurred on . He noticed the swelling and therefore did not size area himself and noticed purulent drainage coming from. Therefore came to ER. He is able to flex and extend his fingers but has pain in doing so. Is concerned that the patient probably needs operative washout and treat with antibiotics due to the nature of the injury being a high pressure injection injury and have now developed an abscess in the hand. We do not have any orthopedic or hand coverage here. We will therefore contact [facility] in [place] for consideration for transfer. (KEMI FERRELL) 05/13/19 05:15 Patient's CBC is normal. No leukocytosis noted. A very low suspicion for sepsis at this time. Chemistries show an elevated LFT, but patient is not complaining of any abdominal pain. Dr. Ferrell came to bedside to evaluate the patient. He is recommending the patient be referred to orthopedics. Since there is no orthopedics flight reservations manager here, he will be transferred to [facility] or [facility]. He will receive clindamycin and when he gets back from smoking a cigarette, will ask him which hospital he would like to go to. 05/13/19 06:23 He would like to go to [facility] because his pain specialist is at that hospital. I spoke with Vira, from [facility]. Awaiting callback from hand surgeon flight reservations manager. 05/13/19 06:[address] Diop, and he has accepted the patient for transfer. The patient will be transferred from ED to ED. 05/13/19 07:29 I have updated the [facility] ER physician, Mena Garcia about the patient's case since the patient will be in ED to ED transfer. 05/13/19 08:15 Transport team is at bedside. I have assessed the patient and he is stable for transport to [facility]. (ZAYDA WYLIE) - Vital Signs Vital signs: Temp Pulse Resp BP Pulse Ox 98.3 F 77 18 155/82 H 94 05/13/19 08:11 05/13/19 08:11 05/13/19 08:11 05/13/19 08:11 05/13/19 08:11 - Laboratory Laboratory results interpreted by me: 05/13/19 05/13/19 00:20 00:20 RDW 15.0 H AST 86 H ALT 102 H Discharge <KEMI FERRELL - Last Filed: 05/13/19 06:31> <ZAYDA WYLIE - Last Filed: 05/13/19 09:07> - Discharge Clinical Impression: Abscess of left hand Condition: Stable Disposition: Count Includes [facility]
[2019-05-13] MEDS ORDERED: DIPH/PERTUSS(ACELL)/TETANUS VAC/PF 0.5 ML SYR (>=10YO) IM ONE (06:24)
[2019-05-13] MEDS ORDERED: HYDROMORPHONE HCL INJ/PF 2 MG/ML AMPULE IV ONE (07:14)
[2019-05-13] MEDS ORDERED: NORMAL SALINE 1000 ML 1,000 ML IV ONE (07:14)
[2019-05-13 08:13] VITALS: BP 155/82
== END 2019-05-13 08:18 | disposition short-term general hospital (02) ==
LOC: ER 22:20
DX: L02.512 Cutaneous abscess of left hand (principal); T70.4XXA Effects of high-pressure fluids, initial encounter; X58.XXXA Exposure to other specified factors, initial encounter; F17.210 Nicotine dependence, cigarettes, uncomplicated; J44.9 Chronic obstructive pulmonary disease, unspecified; R79.89 Other specified abnormal findings of blood chemistry; Z88.0 Allergy status to penicillin
CPT/HCPCS: 99285; 96361; 90471; 96375; 96366; 96365; 36415; 87040; 87070; 87205; 83605; 85025; 87075; 87077; 80053; 87186; 73130; 90715; J3490; J2270; J1170; J7030

== ENCOUNTER → 2019-08-14 | Outpatient (CLI) | payer BC ==
[2019-08-14 12:36] LABS: ABSOLUTE EOSINOPHILS # (AUTO) 0.1 10^3/uL (0.0-0.6); ABSOLUTE LYMPHOCYTES (AUTO) 3.7 10^3/uL (0.5-4.7); ABSOLUTE MONOCYTES (AUTO) 0.9 10^3/uL (0.1-1.4); ABSOLUTE NEUT (AUTO) 4.9 10^3/uL (1.7-8.2); BASOPHILS % (AUTO) 0.3 % (0-2); EOSINOPHILS % (AUTO) 1.5 % (0-6); HEMATOCRIT 42.7 % (37.9-51.0); HEMOGLOBIN 14.9 g/dL (13.5-17.0); LYMPHOCYTES % (AUTO) 37.9 % (13-45); MEAN CORPUSCULAR HEMOGLOBIN 29.7 pg (27.0-33.4); MEAN CORPUSCULAR VOLUME 85 fl (80-97); MONOCYTES % (AUTO) 9.6 % (3-13); PLATELET COUNT 207 10^3/uL (150-450); RED BLOOD COUNT 5.03 10^6/uL (4.35-5.55); RED CELL DISTRIBUTION WIDTH 14.2 % (11.5-14.0); SEGMENTED NEUTROPHILS % (AUTO) 50.7 % (42-78); TOTAL CELLS COUNTED % (AUTO) 100 %; WHITE BLOOD COUNT 9.7 10^3/uL (4.0-10.5)
[2019-08-14 12:51] LABS: ALBUMIN 4.1 g/dL (3.5-5.0); ALKALINE PHOSPHATASE 88 U/L (38-126); ANION GAP 9 (5-19); ASPARTATE AMINO TRANSFERASE 43 U/L (17-59); BILIRUBIN,DIRECT 0.1 mg/dL (0.0-0.4); BILIRUBIN,TOTAL 0.8 mg/dL (0.2-1.3); BLOOD UREA NITROGEN 13 mg/dL (7-20); CALCIUM 9.5 mg/dL (8.4-10.2); CARBON DIOXIDE 31 mmol/L (22-30); CHLORIDE 98 mmol/L (98-107); CHOLESTEROL 102.86 mg/dL (0-200); GLUCOSE 83 mg/dL (75-110); POTASSIUM 4.7 mmol/L (3.6-5.0); TOTAL PROTEIN 7.5 g/dL (6.3-8.2); TRIGLYCERIDES 55 mg/dL (<150)
[2019-08-14 13:02] LABS: DIRECT LDL 68 mg/dL (<100)
--- NOTE | 2019-08-14 13:14 | RADIOLOGY REPORT (SQ) ---
EXAM DESCRIPTION: CHEST PA/LATERAL COMPLETED DATE/TIME: 08/14/2019 12:19 pm REASON FOR STUDY: WHEEZING,CHRONIC OBSTRUCTIVE PULMONARY DISEASE, UNSPECIFIED COMPARISON: Chest films 06/02/2019, 04/17/2019, 03/14/2008 EXAM PARAMETERS: NUMBER OF VIEWS: two views TECHNIQUE: Digital Frontal and Lateral radiographic views of the chest acquired. RADIATION DOSE: NA LIMITATIONS: none FINDINGS: LUNGS AND PLEURA: Lungs are hyperinflated with flattening in the hemidiaphragms. No focal infiltrates. No pleural effusion or pneumothorax. MEDIASTINUM AND HILAR STRUCTURES: No masses or contour abnormalities. HEART AND VASCULAR STRUCTURES: Heart normal size. No evidence for failure. BONES: No acute findings. HARDWARE: None in the chest. OTHER: No other significant finding. IMPRESSION: Hyperinflation with flattening of the hemidiaphragms. No acute infiltrates TECHNICAL DOCUMENTATION: JOB ID: [id number] [employer]- All Rights Reserved Reading location - IP/workstation name: [email or web address]
== END ==
LOC: OD 11:39
PROVIDERS: ATTEND Family Medicine Geriatric Medicine
DX: J44.9 Chronic obstructive pulmonary disease, unspecified (principal); I10 Essential (primary) hypertension; R05 Cough; R06.2 Wheezing; Z79.899 Other long term (current) drug therapy
CPT/HCPCS: 36415; 71046; 80053; 80061; 84443; 85025

== ENCOUNTER → 2019-08-15 | Outpatient (CLI) | payer BC ==
[~2019-08-15] MED LIST changes: +ALBUTEROL SULFATE 0.083% NEB 2.5 MG/3 ML AMPUL NEB ONE; -DEXTROSE 5%-LACTATED RINGERS 1,000 ML IV PRN; -VANCOMYCIN HCL 1,000 MG in DEXTROSE 5%-WATER 250 ML IV PRN
--- NOTE | 2019-08-15 16:07 | Pulmonary Function Test ---
Pulmonary Function Test Date of Procedure:: 08/15/19 INDICATION:: Dyspnea Referring Provider: Opto Mechanical Engineer: Catalina Herr AGATE SETTER - Report Spirometry: Spirometry: pre-FVC: 5.62 L 129% post-FVC: 136% 5.93 L pre-FEV:1 2.24 L 64% post-FEV1: 2.62 L 75% pre-FEV1/FVC %: 40 post-FEV1/FVC%: 44 predicted: 79 [id number]%: 0.57 L 16% [id number]%: 0.71 L 20% Lung Volume: Total lung capacity: 8.86 L 134% Vital capacity: 5.62 L 129% Inspiratory capacity 2.66 L FRC N2: 6.20 L 164% ERV: 1.35 L RV: 3.23 L 134% RV/TLC %:: 37 predicted 38 Diffusion Capactity: DLCO: 20.7 92% DLCO/VA: 2.61 69% Impression: Severe obstructive ventilatory defect. Insignificant response to bronchodilator therapy. This does not preclude a clinical trial of bronchodilator therapy. No restrictive ventilatory field defect. Moderate hyperinflation and moderate air trapping. Normal diffusion capacity
== END ==
LOC: RT 09:30
PROVIDERS: ATTEND Family Medicine Geriatric Medicine
DX: J44.9 Chronic obstructive pulmonary disease, unspecified (principal); R06.2 Wheezing; F17.210 Nicotine dependence, cigarettes, uncomplicated
CPT/HCPCS: 94060; 94727; 94729; 94761

== ENCOUNTER 2019-08-20 08:41 | Inpatient (IN) | payer BC ==
[2019-08-20 09:11] LABS: ABSOLUTE EOSINOPHILS # (AUTO) 0.2 10^3/uL (0.0-0.6); ABSOLUTE LYMPHOCYTES (AUTO) 2.5 10^3/uL (0.5-4.7); ABSOLUTE MONOCYTES (AUTO) 0.7 10^3/uL (0.1-1.4); BASOPHILS % (AUTO) 0.3 % (0-2); EOSINOPHILS % (AUTO) 1.8 % (0-6); HEMATOCRIT 36.9 % (37.9-51.0); HEMOGLOBIN 12.8 g/dL (13.5-17.0); LYMPHOCYTES % (AUTO) 26.5 % (13-45); MEAN CORPUSCULAR HEMOGLOBIN 29.3 pg (27.0-33.4); MEAN CORPUSCULAR HGB CONC 34.7 g/dL (32.0-36.0); MEAN CORPUSCULAR VOLUME 84 fl (80-97); PLATELET COUNT 205 10^3/uL (150-450); RED BLOOD COUNT 4.37 10^6/uL (4.35-5.55); RED CELL DISTRIBUTION WIDTH 14.4 % (11.5-14.0); SEGMENTED NEUTROPHILS % (AUTO) 64.4 % (42-78); TOTAL CELLS COUNTED % (AUTO) 100 %; WHITE BLOOD COUNT 9.3 10^3/uL (4.0-10.5)
[2019-08-20 09:30] LABS: ALBUMIN 3.5 g/dL (3.5-5.0); ALKALINE PHOSPHATASE 83 U/L (38-126); ANION GAP 6 (5-19); ASPARTATE AMINO TRANSFERASE 43 U/L (17-59); BILIRUBIN,DIRECT 0.1 mg/dL (0.0-0.4); BILIRUBIN,TOTAL 0.3 mg/dL (0.2-1.3); BLOOD UREA NITROGEN 16 mg/dL (7-20); CALCIUM 8.4 mg/dL (8.4-10.2); CARBON DIOXIDE 31 mmol/L (22-30); CHLORIDE 101 mmol/L (98-107); GLUCOSE 139 mg/dL (75-110); TOTAL PROTEIN 6.3 g/dL (6.3-8.2)
[2019-08-20 09:31] LABS: ACETAMINOPHEN < 10 ug/mL (10-30); ALCOHOL < 10 mg/dL (NONE DETECTED); SALICYLATE < 1.0 mg/dL (2.0-20.0)
[2019-08-20] MEDS ORDERED: LIDOCAINE 1% INJ-PF (10 MG/ML) 30 ML SDV INJ ONE (10:20)
[2019-08-20] MEDS ORDERED: ACETAMINOPHEN 650 MG SUPP.RECT PR ONE (10:20)
[2019-08-20] MEDS ORDERED: NALOXONE HCL INJ/PF 0.4 MG/1 ML SDV ONE (10:26)
[2019-08-20] MEDS ORDERED: ACETAMINOPHEN 325 MG TABLET ONE (10:34)
[2019-08-20] MEDS ORDERED: VANCOMYCIN HCL INJ 1000 MG VIAL IV ONE (10:41)
[2019-08-20] MEDS ORDERED: NALOXONE HCL INJ/PF 0.4 MG/1 ML SDV IV ONE (10:45)
[2019-08-20] MEDS ORDERED: ACETAMINOPHEN 325 MG TABLET PO ONE ×2 (10:45→10:47)
--- NOTE | 2019-08-20 11:03 | RADIOLOGY REPORT (SQ) ---
EXAM DESCRIPTION: CHEST SINGLE VIEW COMPLETED DATE/TIME: 08/20/2019 10:55 am REASON FOR STUDY: fever COMPARISON: 08/14/2019 EXAM PARAMETERS: NUMBER OF VIEWS: One view. TECHNIQUE: Single frontal radiographic view of the chest acquired. RADIATION DOSE: NA LIMITATIONS: None. FINDINGS: LUNGS AND PLEURA: No opacities, masses or pneumothorax. No pleural effusion. MEDIASTINUM AND HILAR STRUCTURES: No masses. Contour normal. HEART AND VASCULAR STRUCTURES: Heart normal in size. Normal vasculature. BONES: No acute findings. HARDWARE: None in the chest. OTHER: No other significant finding. IMPRESSION: NO ACUTE RADIOGRAPHIC FINDING IN THE CHEST. TECHNICAL DOCUMENTATION: JOB ID: [id number] [employer]- All Rights Reserved Reading location - IP/workstation name: [email or web address]
[2019-08-20 12:06] LABS: APPEARANCE,URINE CLEAR; BILIRUBIN,URINE NEGATIVE (NEGATIVE); COLOR,URINE YELLOW; GLUCOSE, URINE NEGATIVE (NEGATIVE); KETONES,URINE NEGATIVE (NEGATIVE); LEUKOCYTE ESTERASE,URINE NEGATIVE (NEGATIVE); NITRITE,URINE NEGATIVE (NEGATIVE); PROTEIN,URINE NEGATIVE (NEGATIVE); URINE SPECIFIC GRAVITY 1.027; UROBILINOGEN,URINE NEGATIVE mg/dL (<2.0)
[2019-08-20 12:24] LABS: URINE AMPHETAMINES SCREEN UNCONFIRMED POSITIVE; URINE BARBITURATES SCREEN NEGATIVE; URINE BENZODIAZEPINES SCREEN NEGATIVE; URINE COCAINE SCREEN UNCONFIRMED POSITIVE; URINE MARIJUANA (THC) SCREEN NEGATIVE; URINE METHADONE SCREEN UNCONFIRMED POSITIVE; URINE PHENCYCLIDINE SCREEN NEGATIVE
--- NOTE | 2019-08-20 13:22 | ER Document Report ---
ED General - General Chief Complaint: Possible Overdose Stated Complaint: POSSIBLE OVERDOSE Time Seen by Provider: 08/20/19 09:54 Primary Care Provider: CHRISTOPHER CARLISLE MD [Primary Care Provider] - Follow up as needed TRAVEL OUTSIDE OF THE [place] IN LAST 30 DAYS: No - HPI Notes: Patient is a 64-year-old male who presents to the emergency department for evaluation. Evidently he was found unresponsive in bed by family. EMS found drug paraphernalia, including needles, present. The patient has a known history of IV drug abuse. On arrival he was cyanotic, extremely hypoxic. He was given 0.4 mill grams of Narcan and the patient became more responsive. The patient is very agitated intermittently, he does not offer me any real other history. - Related Data Allergies/Adverse Reactions: Penicillins Allergy (Verified 04/17/19 09:58) Past Medical History - Social History Smoking Status: Current Every Day Smoker Drug Abuse: Cocaine, Heroin, Prescription drugs Family History: Reviewed & Not Pertinent, CAD, Hypertension Patient has suicidal ideation: No Patient has homicidal ideation: No - Past Medical History Cardiac Medical History: Denies: Hx Coronary Artery Disease, Hx Heart Attack, Hx Hypertension Pulmonary Medical History: Reports: Hx COPD Denies: Hx Asthma, Hx Bronchitis, Hx Pneumonia Neurological Medical History: Denies: Hx Cerebrovascular Accident, Hx Seizures Endocrine Medical History: Denies: Hx Diabetes Mellitus Type 1, Hx Diabetes Mellitus Type 2, Hx Hyperthyroidism, Hx Hypothyroidism Renal/ Medical History: Denies: Hx Peritoneal Dialysis GI Medical History: Denies: Hx Cirrhosis, Hx Hepatitis Musculoskeletal Medical History: Reports Hx Arthritis, Denies Hx Gout Skin Medical History: Denies Hx Eczema, Denies Hx Psoriasis Infectious Medical History: Denies: Hx Hepatitis Past Surgical History: Reports: Other - Cyst removal - Immunizations Hx Diphtheria, Pertussis, Tetanus Vaccination: Yes Review of Systems - Review of Systems -: Yes ROS unobtainable due to patient's medical condition Physical Exam - Vital signs Vitals: Resp BP Pulse Ox 12 137/80 H 93 08/20/19 08:50 08/20/19 08:50 08/20/19 08:50 - Notes Notes: Patient is a 64-year-old male, appears older than her stated age. He is somnolent, but awakes to painful stimuli. Pupils are 4 mm, round and reactive. Her mucous is moist. Heart is regular rate and rhythm, lungs are clear station bilaterally. Abdomen soft, nontender, normoactive bowel sounds. Skin is hot and dry. Patient has no gross facial asymmetry, moves all 4 extremities spontaneously. Peripheral pulses are equal. Course - Re-evaluation Re-evalutation: 08/20/19 13:36 Patient presents emergency department for evaluation. He has a known history of IV drug abuse. On arrival he was initially treated as IVC, but the patient's vital signs revealed a fever. Given his recent endocarditis, I was concerned about this being the possibility of the etiology of his fever. He was given IV vancomycin. Laboratory investigations were obtained and were largely unremarkable, with the exception of the significantly positive drug screen. Giv en the presence of methadone, I am concerned about prolonged effects from overdose. Patient was given Narcan here and responded, but he became somnolent again. Decision was made to proceed with Narcan drip. Given the patient's level of unresponsiveness, I did decide, after discussing with data software engineer Dr. Philippe, to cover for possible aspiration as well. Initially Zosyn was considered, but the patient is penicillin allergic. Merrem was ordered. We will admit the patient for further care. - Vital Signs Vital signs: Temp Pulse Resp BP Pulse Ox 98.2 F 15 134/75 H 96 08/20/19 11:49 08/20/19 13:01 08/20/19 13:01 08/20/19 13:01 - Laboratory Result Diagrams: 08/20/19 08:58 08/20/19 08:58 Laboratory results interpreted by me: 08/20/19 08/20/19 08/20/19 08:58 08:58 11:43 Hgb 12.8 L Hct 36.9 L RDW 14.4 H Carbon Dioxide 31 H Glucose 139 H Urine Ascorbic Acid 20 H Salicylates < 1.0 L Acetaminophen < 10 L - Diagnostic Test Radiology reviewed: Reports reviewed Radiology results interpreted by me: 08/20/19 13:38 Chest X-Ray 08/20/19 10:19 IMPRESSION: NO ACUTE RADIOGRAPHIC FINDING IN THE CHEST. - EKG Interpretation by Me Additional EKG results interpreted by me: 08/20/19 13:38 Sinus mechanism rate 95 bpm. Normal axis and intervals, no acute ST changes concerning for ischemia or infarction. Critical Care Note - Critical Care Note Total time excluding time spent on procedures (mins): 30 Discharge - Discharge Clinical Impression: IV drug abuse, Fever Altered mental status Qualifiers: Altered mental status type: unspecified Qualified Code(s): R41.82 - Altered mental status, unspecified Overdose Qualifiers: Encounter type: initial encounter Injury intent: undetermined intent Qualified Code(s): T50.904A - Poisoning by unspecified drugs, medicaments and biological substances, undetermined, initial encounter Condition: Stable Disposition: ADMITTED INPATIENT Admitting Provider: Dr. Philippe Unit Admitted: ICU Referrals: CHRISTOPHER CARLISLE MD [Primary Care Provider] - Follow up as needed
[2019-08-20] MEDS ORDERED: NORMAL SALINE 500 ML with NALOXONE HCL 2 MG IV PRN ×2 (13:28)
[2019-08-20] MEDS ORDERED: MEROPENEM 1 GM VIAL IV ONE (13:33)
[2019-08-20] MEDS ORDERED: GLUCAGON,HUMAN RECOMB 1 MG INJ SUBCUT PRN (14:12)
[2019-08-20] MEDS ORDERED: IPRATROPIUM/ALBUTEROL 0.5-2.5 MG/3 ML AMPUL NEB PRN (14:12)
[2019-08-20] MEDS ORDERED: DEXTROSE 50%-WATER 25 GM/50 ML DISP.SYRIN IV PRN ×2 (14:12)
[2019-08-20] MEDS ORDERED: DEXTROSE 40% GEL 15 GM TUBE PO PRN ×2 (14:12)
[2019-08-20] MEDS ORDERED: ONDANSETRON HCL INJ/PF 4 MG/2 ML SDV IV PRN (14:12)
[2019-08-20] MEDS ORDERED: NALOXONE HCL INJ 2 MG/2 ML DISP.SYRIN ONE ×2 (15:20→19:54)
--- NOTE | 2019-08-20 15:36 | CRITICAL CARE ADMISSION REPORT ---
HPI Date:: 08/20/19 Time:: 14:30 Reason for ICU Reason:: Narcan drip and aspiration risk HPI: This patient is a 64 yo man with a long history of both iv and po drug abuse. He was found by family this AM unresposive with drup paraphenalia in the bed. Not hypoxic. Only arouses to as "Where am I" before returning to a stuperous sleep. Unintentional OD. He is on a narcan drip but he has other drugs in system besides narcotics. He will need to be admitted to the ICU for close monitoring, narcan drip management and aspiration risk. He has a fever and likely aspirated already. 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 May be active again. History obtained from:: Records and ED MD. - Diagnosis/Plan (1) Altered mental status Qualifiers: Altered mental status type: stupor Qualified Code(s): R40.1 - Stupor Is this a current diagnosis for this admission?: Yes Plan: Continue narcan infusion and allow other substances to metabolize. UDS positive for narcotics, methadone, cocaine, amphetamines. (2) Fever Qualifiers: Fever type: unspecified Qualified Code(s): R50.9 - Fever, unspecified Is this a current diagnosis for this admission?: Yes Plan: Pt is not septic likely aspirated. If blood cultures positive he may need echocardigram, PICC and treatment for recurrent SBE (3) IV drug abuse Is this a current diagnosis for this admission?: Yes Plan: This seems to be a intermediate major issue. Asssess desire to rehab when awake. (4) COPD (chronic obstructive pulmonary disease) Qualifiers: COPD type: unspecified COPD Qualified Code(s): J44.9 - Chronic obstructive pulmonary disease, unspecified Is this a current diagnosis for this admission?: Yes Plan: This is by history and is inactive now. Past Medical History Cardiac Medical History: Denies: Coronary Artery Disease, Myocardial Infarction, Hypertension Pulmonary Medical History: Reports: Chronic Obstructive Pulmonary Disease (COPD) Denies: Asthma, Bronchitis, Pneumonia Neurological Medical History: Denies: Seizures Endocrine Medical History: Denies: Diabetes Mellitus Type 1, Diabetes Mellitus Type 2, Hyperthyroidism, Hypothyroidism GI Medical History: Denies: Cirrhosis, Hepatitis Musculoskeltal Medical History: Reports: Arthritis Denies: Gout Skin Medical History: Denies: Eczema, Psoriasis Psychiatric Medical History: Reports: Substance Abuse Hematology: Denies: Anemia, Bleeding Tendencies Past Surgical History Past Surgical History: Reports: Other - Cyst removal Social/Family History - Social History Smoking Status: Current Every Day Smoker Frequency of Alcohol Use: Social Hx Recreational Drug Use: Yes Drugs: Cocaine, Marijuana, Methadone, Other - IV drugs Hx Prescription Drug Abuse: No - Family History Family History: Other Family History: Not able to provide - Medication/Allergies Home Medications: Docusate Sodium [Colace 100 mg Capsule] 100 mg PO DAILYP PRN 06/02/19 Oxycodone HCl [Oxycontin] 40 mg PO Q12 06/02/19 Bupropion HCl [Wellbutrin 75 Mg Tablet] 75 mg PO BID 08/20/19 Famotidine [Pepcid 20 mg Tablet] 20 mg PO BID 08/20/19 Guaifenesin [Mucinex Sr 600 mg Tablet.sa] 600 mg PO Q12 08/20/19 Ipratropium/Albuterol Sulfate [Combivent Respimat 4 gm Mdi] 1 puff IH QID 08/20/19 Levocetirizine Dihydrochloride [Xyzal] 5 mg PO QPM 08/20/19 Lidocaine [Aspercreme] 1 each TP BID 08/20/19 Lisinopril [Prinivil 5 mg Tablet] 5 mg PO DAILY 08/20/19 Meloxicam [Mobic] 7.5 mg PO DAILY 08/20/19 Oxycodone HCl [Oxycodone HCl 10 MG Tablet] 10 mg PO QID 08/20/19 Polyethylene Glycol 3350 [Miralax Powder 17 gm/Packet] 1 packet PO DAILY 08/20/19 Allergies/Adverse Reactions: Penicillins Allergy (Verified 04/17/19 09:58) Review of Systems ROS unobtainable: Due to mental status Physical Exam Vital Signs: Temp Pulse Resp BP Pulse Ox 98.2 F 13 134/70 H 97 08/20/19 11:49 08/20/19 14:01 08/20/19 14:01 08/20/19 14:01 Intake & Output 08/19/19 08/20/19 08/21/19 06:59 06:59 06:59 Weight 82.9 kg Weight/Height Weight 82.9 kg Height 5 ft 10 in General appearance: PRESENT: no acute distress, well-developed, well-nourished Head exam: PRESENT: atraumatic Ear exam: PRESENT: normal external ear exam Mouth exam: PRESENT: dry mucosa Respiratory exam: PRESENT: unlabored Cardiovascular exam: PRESENT: RRR GI/Abdominal exam: PRESENT: soft Rectal exam: PRESENT: deferred Musculoskeletal exam: PRESENT: normal inspection Laboratory/Radiographs Laboratory Results: 08/20/19 08:58 08/20/19 08:58 08/20/19 08/20/19 08/20/19 08:58 08:58 08:58 WBC 9.3 RBC 4.37 Hgb 12.8 L Hct 36.9 L MCV 84 MCH 29.3 MCHC 34.7 RDW 14.4 H Plt Count 205 Seg Neutrophils % 64.4 Sodium 138.0 Potassium 4.0 Chloride 101 Carbon Dioxide 31 H Anion Gap 6 BUN 16 Creatinine 0.75 Est GFR ( Amer) > 60 Glucose 139 H Lactic Acid 1.7 Calcium 8.4 Total Bilirubin 0.3 AST 43 Alkaline Phosphatase 83 Total Protein 6.3 Albumin 3.5 Urine Color Urine Appearance Urine pH Ur Specific [place] Urine Protein Urine Glucose (UA) Urine Ketones Urine Blood Urine Nitrite Ur Leukocyte Esterase Urine WBC (Auto) Urine RBC (Auto) 08/20/19 11:43 WBC RBC Hgb Hct MCV MCH MCHC RDW Plt Count Seg Neutrophils % Sodium Potassium Chloride Carbon Dioxide Anion Gap BUN Creatinine Est GFR ( Amer) Glucose Lactic Acid Calcium Total Bilirubin AST Alkaline Phosphatase Total Protein Albumin Urine Color YELLOW Urine Appearance CLEAR Urine pH 5.0 Ur Specific [place] 1.027 Urine Protein NEGATIVE Urine Glucose (UA) NEGATIVE Urine Ketones NEGATIVE Urine Blood NEGATIVE Urine Nitrite NEGATIVE Ur Leukocyte Esterase NEGATIVE Urine WBC (Auto) 4 Urine RBC (Auto) 1 Impressions: Chest X-Ray 08/20/19 10:19 IMPRESSION: NO ACUTE RADIOGRAPHIC FINDING IN THE CHEST. Critical Time Critical Time (minutes): 40 -: The care of a critically ill patient is dynamic. This note represents a static moment in the admission process. orders and treatments may be given simulataneously and urgentl, and time is not development representative of the treatment process. This patient requires Critical Care secondary to life threating organ or limb dysfunction. Without the need for Critical Care services, the patient is at risk for increasid mortality and morbidity.
[2019-08-20] MEDS: NORMAL SALINE 1000 ML 1,000 ML IV PRN (15:57)
[2019-08-20] MEDS: ENOXAPARIN SODIUM INJ 40 MG/0.4 ML DISP.SYRIN SUBCUT SCH (17:35)
[2019-08-20] MEDS: IPRATROPIUM/ALBUTEROL 0.5-2.5 MG/3 ML AMPUL NEB SCH (19:43)
[2019-08-20] MEDS ORDERED: IPRATROPIUM/ALBUTEROL 0.5-2.5 MG/3 ML AMPUL NEB SCH (20:00)
[2019-08-20] MEDS ORDERED: ALBUTEROL SULFATE 0.083% NEB 2.5 MG/3 ML AMPUL NEB SCH (20:00)
[2019-08-20] MEDS ORDERED: IPRATROPIUM BROMIDE 0.02% NEB 0.5 MG/2.5 ML AMPUL NEB SCH (20:00)
[2019-08-20] MEDS: NORMAL SALINE 500 ML with NALOXONE HCL 2 MG IV PRN ×2 (20:17)
[2019-08-21] MEDS ORDERED: NALOXONE HCL INJ 2 MG/2 ML DISP.SYRIN ONE ×2 (00:05→05:34)
[2019-08-21] MEDS: NORMAL SALINE 500 ML with NALOXONE HCL 2 MG IV PRN ×4 (00:13→05:36)
[2019-08-21] MEDS: NORMAL SALINE 1000 ML 1,000 ML IV PRN ×2 (00:16→05:37)
--- NOTE | 2019-08-21 00:47 | EKG REPORT ---
SEVERITY:- ABNORMAL ECG - SINUS RHYTHM LAD, CONSIDER LEFT ANTERIOR FASCICULAR BLOCK : Confirmed by: Donna Drew 21-Aug-2019 00:46:14
[2019-08-21] MEDS: IPRATROPIUM/ALBUTEROL 0.5-2.5 MG/3 ML AMPUL NEB SCH ×2 (01:55→08:24)
[2019-08-21 04:17] LABS: ABSOLUTE EOSINOPHILS # (AUTO) 0.1 10^3/uL (0.0-0.6); ABSOLUTE LYMPHOCYTES (AUTO) 2.2 10^3/uL (0.5-4.7); ABSOLUTE MONOCYTES (AUTO) 0.5 10^3/uL (0.1-1.4); ABSOLUTE NEUT (AUTO) 4.1 10^3/uL (1.7-8.2); BASOPHILS % (AUTO) 0.4 % (0-2); EOSINOPHILS % (AUTO) 0.7 % (0-6); HEMATOCRIT 36.6 % (37.9-51.0); HEMOGLOBIN 12.7 g/dL (13.5-17.0); LYMPHOCYTES % (AUTO) 31.1 % (13-45); MEAN CORPUSCULAR HEMOGLOBIN 29.1 pg (27.0-33.4); MEAN CORPUSCULAR HGB CONC 34.7 g/dL (32.0-36.0); MEAN CORPUSCULAR VOLUME 84 fl (80-97); MONOCYTES % (AUTO) 7.8 % (3-13); PLATELET COUNT 199 10^3/uL (150-450); RED BLOOD COUNT 4.37 10^6/uL (4.35-5.55); TOTAL CELLS COUNTED % (AUTO) 100 %; WHITE BLOOD COUNT 6.9 10^3/uL (4.0-10.5)
[2019-08-21 04:41] LABS: ANION GAP 8 (5-19); BLOOD UREA NITROGEN 11 mg/dL (7-20); CALCIUM 8.4 mg/dL (8.4-10.2); CARBON DIOXIDE 28 mmol/L (22-30); CHLORIDE 104 mmol/L (98-107); GLUCOSE 82 mg/dL (75-110); POTASSIUM 3.5 mmol/L (3.6-5.0)
[2019-08-21] MEDS ORDERED: VANCOMYCIN HCL 0 MG in DEXTROSE 5%-WATER 250 ML IV NR (08:45)
[2019-08-21] MEDS: MEROPENEM 1 GM in NORMAL SALINE 50 ML IV SCH ×2 (09:53→17:04)
[2019-08-21] MEDS: ENOXAPARIN SODIUM INJ 40 MG/0.4 ML DISP.SYRIN SUBCUT SCH (09:55)
--- NOTE | 2019-08-21 10:03 | RADIOLOGY REPORT (SQ) ---
EXAM DESCRIPTION: CHEST SINGLE VIEW COMPLETED DATE/TIME: 08/21/2019 9:26 am REASON FOR STUDY: aspiration COMPARISON: Chest film 08/20/2019, 08/14/2019, 04/17/2019 EXAM PARAMETERS: NUMBER OF VIEWS: One view. TECHNIQUE: Single frontal radiographic view of the chest acquired. RADIATION DOSE: NA LIMITATIONS: None. FINDINGS: LUNGS AND PLEURA: No opacities, masses or pneumothorax. No pleural effusion. MEDIASTINUM AND HILAR STRUCTURES: No masses. Contour normal. HEART AND VASCULAR STRUCTURES: Heart normal in size. Normal vasculature. BONES: No acute findings. HARDWARE: None in the chest. OTHER: No other significant finding. IMPRESSION: NO ACUTE RADIOGRAPHIC FINDING IN THE CHEST. TECHNICAL DOCUMENTATION: JOB ID: [id number] [employer]- All Rights Reserved Reading location - IP/workstation name: [email or web address]
--- NOTE | 2019-08-21 10:50 | PDOC PROGRESS REPORT ---
Subjective Progress Note for:: 08/21/19 Subjective:: ICU Progress Note Pt is off the narcan drip. Is responsive and protecting his airway Reason For Visit: POLYDRUG OD,LONG HX SUBSTANCE ABUSE,FEVER Physical Exam Vital Signs: Temp Pulse Resp BP Pulse Ox 98.4 F 73 20 137/78 H 96 08/21/19 08:00 08/21/19 10:00 08/21/19 10:00 08/21/19 10:00 08/21/19 10:00 Intake & Output 08/20/19 08/21/19 08/22/19 06:59 06:59 06:59 Intake Total 2797 783 Output Total 900 0 Balance 1897 783 Weight 80 kg General appearance: PRESENT: no acute distress, well-developed, well-nourished Head exam: PRESENT: atraumatic, normocephalic Respiratory exam: PRESENT: clear to auscultation ap, unlabored Cardiovascular exam: PRESENT: RRR GI/Abdominal exam: PRESENT: soft Extremities exam: PRESENT: other - no edema Results Laboratory Results: 08/21/19 03:48 08/21/19 03:48 08/20/19 08/21/19 08/21/19 11:43 03:48 03:48 WBC 6.9 RBC 4.37 Hgb 12.7 L Hct 36.6 L MCV 84 MCH 29.1 MCHC 34.7 RDW 14.0 Plt Count 199 Seg Neutrophils % 60.0 Sodium 139.5 Potassium 3.5 L Chloride 104 Carbon Dioxide 28 Anion Gap 8 BUN 11 Creatinine 0.52 Est GFR ( Amer) > 60 Glucose 82 Calcium 8.4 Urine Color YELLOW Urine Appearance CLEAR Urine pH 5.0 Ur Specific [place] 1.027 Urine Protein NEGATIVE Urine Glucose (UA) NEGATIVE Urine Ketones NEGATIVE Urine Blood NEGATIVE Urine Nitrite NEGATIVE Ur Leukocyte Esterase NEGATIVE Urine WBC (Auto) 4 Urine RBC (Auto) 1 Impressions: Chest X-Ray 08/21/19 00:00 IMPRESSION: NO ACUTE RADIOGRAPHIC FINDING IN THE CHEST. 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 Plan: 1. Respiratory: stable on room air. Is protecting his airway 2. CV: heart rate and BP acceptable. Recent treatment for Staph endocarditis 3.Psych/ Social: IV drug use. Drug overdose. UDS positive for opiates, meth, cocaine,methadone. Off narcan drip 4. ID: recent treatment for staph endocarditis. Fever, resolved. Continue vanc and meropenem until cultures negative 5. Supportive care 6. Stable for transfer out of ICU
[2019-08-21] MEDS: VANCOMYCIN HCL 1,250 MG in DEXTROSE 5%-WATER 250 ML IV SCH ×2 (11:23→21:19)
--- NOTE | 2019-08-21 16:01 | PSYCHOLOGICAL NOTE ---
Psych Note - Psych Note Date seen by psych provider: 08/21/19 Psych Note: Presenting Problem: SA, OD, sister found in bed unresponsive with drug paraphernalia (i.e. needles), UDS positive for opiates/methadone/amphetamines/cocaine. He denied wanting help or detox. Admitted to previous tx and commented "I need to go back to [facility] He stated he needed to get back to work so would have to do something outpatient. He denied this being a SI attempt. Sister Mikaela cell, work, [id number] number) at bedside noted this is the 3rd time patient has OD in a short period of time. She stated he needs detox and was made aware it would be recommended/linkage and referral could be made but it is voluntary. Diagnosis: Polysubstance Use Opioid Use Disorder, Severe Amphetamine Use Disorder, Severe Cocaine Use Disorder, Severe Depressive Disorder Medication recommendations made by the psychiatric medication provider, Dr. Anna MD., includes: Discontinue home medication of Wellbutrin Add Effexor 37.5MG twice a day for depression/energy/focus Impression/Plan: Patient is cleared from acute psychiatric services. Will link and provide referral to voluntary detox if patient wants it when ready for discharge. Otherwise he mentioned reconnecting with [facility] (which the [facility] team can arrange as well).
[2019-08-21] MEDS: VENLAFAXINE HCL 37.5 MG CAP.SR.24H PO SCH (21:19)
[2019-08-22] MEDS: MEROPENEM 1 GM in NORMAL SALINE 50 ML IV SCH (02:25)
[2019-08-22] MEDS: VANCOMYCIN HCL 1,250 MG in DEXTROSE 5%-WATER 250 ML IV SCH (04:33)
[2019-08-22 08:12] LABS: ABSOLUTE EOSINOPHILS # (AUTO) 0.2 10^3/uL (0.0-0.6); ABSOLUTE LYMPHOCYTES (AUTO) 2.2 10^3/uL (0.5-4.7); ABSOLUTE MONOCYTES (AUTO) 0.7 10^3/uL (0.1-1.4); BASOPHILS % (AUTO) 0.5 % (0-2); EOSINOPHILS % (AUTO) 2.3 % (0-6); HEMATOCRIT 37.2 % (37.9-51.0); HEMOGLOBIN 13.2 g/dL (13.5-17.0); LYMPHOCYTES % (AUTO) 27.4 % (13-45); MEAN CORPUSCULAR HEMOGLOBIN 29.4 pg (27.0-33.4); MEAN CORPUSCULAR HGB CONC 35.4 g/dL (32.0-36.0); MEAN CORPUSCULAR VOLUME 83 fl (80-97); MONOCYTES % (AUTO) 8.1 % (3-13); PLATELET COUNT 187 10^3/uL (150-450); RED BLOOD COUNT 4.48 10^6/uL (4.35-5.55); RED CELL DISTRIBUTION WIDTH 13.9 % (11.5-14.0); SEGMENTED NEUTROPHILS % (AUTO) 61.7 % (42-78); TOTAL CELLS COUNTED % (AUTO) 100 %; WHITE BLOOD COUNT 8.1 10^3/uL (4.0-10.5)
[2019-08-22 08:33] LABS: ANION GAP 5 (5-19); BLOOD UREA NITROGEN 11 mg/dL (7-20); CALCIUM 8.8 mg/dL (8.4-10.2); CARBON DIOXIDE 31 mmol/L (22-30); CHLORIDE 102 mmol/L (98-107); GLUCOSE 99 mg/dL (75-110); POTASSIUM 3.9 mmol/L (3.6-5.0)
[2019-08-22] MEDS ORDERED: FUROSEMIDE INJ/PF 40 MG/4 ML SDV IV ONE (09:00)
[2019-08-22] MEDS: VENLAFAXINE HCL 37.5 MG CAP.SR.24H PO SCH (09:16)
[2019-08-22] MEDS: ENOXAPARIN SODIUM INJ 40 MG/0.4 ML DISP.SYRIN SUBCUT SCH (09:17)
[2019-08-22] MEDS ORDERED: INFLUENZA QUAD (6MOS+) 2019-20 VAC 0.5 ML SYR IM ONE (09:23)
[2019-08-22] MEDS ORDERED: LISINOPRIL 5 MG TABLET PO SCH (10:00)
[2019-08-22 11:09] VITALS: BP 144/74
--- NOTE | 2019-08-22 11:23 | PDOC DISCHARGE SUMMARY ---
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 Is this a current diagnosis for this admission?: No - Additional Information Discharge Diet: As Tolerated Discharge Activity: Activity As Tolerated Referrals: CHRISTOPHER CARLISLE MD [Primary Care Provider] - 08/28/19 2:00 pm (FOLLOW-UP: APPOINTMENT MADE FOR 09-07-19 @ 1400) Prescriptions: Venlafaxine HCl ER [Effexor Xr 37.5 mg Cap.sr] 37.5 mg PO Q12 #60 cap.sr.24h Home Medications: Docusate Sodium [Colace 100 mg Capsule] 100 mg PO DAILYP PRN 06/02/19 Famotidine [Pepcid 20 mg Tablet] 20 mg PO BID 08/20/19 Guaifenesin [Mucinex Sr 600 mg Tablet.sa] 600 mg PO Q12 08/20/19 Ipratropium/Albuterol Sulfate [Combivent Respimat 4 gm Mdi] 1 puff IH QID 08/20/19 Levocetirizine Dihydrochloride [Xyzal] 5 mg PO QPM 08/20/19 Lidocaine [Aspercreme] 1 each TP BID 08/20/19 Lisinopril [Prinivil 5 mg Tablet] 5 mg PO DAILY 08/20/19 Meloxicam [Mobic] 7.5 mg PO DAILY 08/20/19 Polyethylene Glycol 3350 [Miralax Powder 17 gm/Packet] 1 packet PO DAILY 08/20/19 Lisinopril [Prinivil 5 mg Tablet] 5 mg PO DAILY tablet 08/22/19 Venlafaxine HCl ER [Effexor Xr 37.5 mg Cap.sr] 37.5 mg PO Q12 #60 cap.sr.24h 08/22/19 History of Present Illiness History of Present Illness: JANETH VARGAS is a 64 year old male admitted with a drug overdose. He was started on a narcan drip and admitted to the ICU. The narcan drip was stopped on 08/21. Hospital Course Hospital Course: Assessment: 64 yo man with drug overdose, IV drug use, recent staph endocarditis. Plan: 1. Respiratory: stable on room air. 2. CV: heart rate and BP acceptable. Recent treatment for Staph endocarditis 3.Psych/ Social: IV drug use. Drug overdose. UDS positive for opiates, meth, cocaine,methadone. Evaluated by psychiatry. Recommended starting effexor and stopping his home wellbutrin. They cleared him for discharge. Pt to follow-up at [facility] 4. ID: recent treatment for staph endocarditis. BCX negative for 48 hours. ATBX stopped. No signs of active infection. 5. Discharge home. Physical Exam Vital Signs: Temp Pulse Resp BP Pulse Ox 98.0 F 63 17 144/74 H 94 08/22/19 10:57 08/22/19 10:57 08/22/19 10:57 08/22/19 10:57 08/22/19 10:57 Intake & Output 08/21/19 08/22/19 08/23/19 06:59 06:59 06:59 Intake Total 2797 2033 Output Total 900 1700 1300 Balance 1897 333 -1300 Weight 80 kg 84.2 kg General appearance: PRESENT: no acute distress, well-developed, well-nourished Respiratory exam: PRESENT: clear to auscultation ap, unlabored Cardiovascular exam: PRESENT: RRR GI/Abdominal exam: PRESENT: soft, other - non-tender,non-distended Extremities exam: PRESENT: other - no edema Musculoskeletal exam: PRESENT: normal inspection Results Laboratory Results: WBC 8.1 10^3/uL (4.0-10.5) 08/22/19 07:30 RBC 4.48 10^6/uL (4.35-5.55) 08/22/19 07:30 Hgb 13.2 g/dL (13.5-17.0) L 08/22/19 07:30 Hct 37.2 % (37.9-51.0) L 08/22/19 07:30 MCV 83 fl (80-97) 08/22/19 07:30 MCH 29.4 pg (27.0-33.4) 08/22/19 07:30 MCHC 35.4 g/dL (32.0-36.0) 08/22/19 07:30 RDW 13.9 % (11.5-14.0) 08/22/19 07:30 Plt Count 187 10^3/uL (150-450) 08/22/19 07:30 Lymph % (Auto) 27.4 % (13-45) 08/22/19 07:30 [place] % (Auto) 8.1 % (3-13) 08/22/19 07:30 Eos % (Auto) 2.3 % (0-6) 08/22/19 07:30 Baso % (Auto) 0.5 % (0-2) 08/22/19 07:30 Absolute Neuts (auto) 5.0 10^3/uL (1.7-8.2) 08/22/19 07:30 Absolute Lymphs (auto) 2.2 10^3/uL (0.5-4.7) 08/22/19 07:30 Absolute Monos (auto) 0.7 10^3/uL (0.1-1.4) 08/22/19 07:30 Absolute Eos (auto) 0.2 10^3/uL (0.0-0.6) 08/22/19 07:30 Absolute Basos (auto) 0.0 10^3/uL (0.0-0.2) 08/22/19 07:30 Seg Neutrophils % 61.7 % (42-78) 08/22/19 07:30 Sodium 137.7 mmol/L (137-145) 08/22/19 07:30 Potassium 3.9 mmol/L (3.6-5.0) 08/22/19 07:30 Chloride 102 mmol/L (98-107) 08/22/19 07:30 Carbon Dioxide 31 mmol/L (22-30) H 08/22/19 07:30 Anion Gap 5 (5-19) 08/22/19 07:30 BUN 11 mg/dL (7-20) 08/22/19 07:30 Creatinine 0.53 mg/dL (0.52-1.25) 08/22/19 07:30 Est GFR ( Amer) > 60 (>60) 08/22/19 07:30 Est GFR (MDRD) Non-Af > 60 (>60) 08/22/19 07:30 Glucose 99 mg/dL (75-110) 08/22/19 07:30 Lactic Acid 1.7 mmol/L (0.7-2.1) 08/20/19 08:58 Calcium 8.8 mg/dL (8.4-10.2) 08/22/19 07:30 Magnesium 1.8 mg/dL (1.6-2.3) 08/22/19 07:30 Total Bilirubin 0.3 mg/dL (0.2-1.3) 08/20/19 08:58 Direct Bilirubin 0.1 mg/dL (0.0-0.4) 08/20/19 08:58 Neonat Total Bilirubin Not Reportable 08/20/19 08:58 Neonat Direct Bilirubin Not Reportable 08/20/19 08:58 Neonat Indirect Bili Not Reportable 08/20/19 08:58 AST 43 U/L (17-59) 08/20/19 08:58 ALT 41 U/L (<50) 08/20/19 08:58 Alkaline Phosphatase 83 U/L (38-126) 08/20/19 08:58 Total Protein 6.3 g/dL (6.3-8.2) 08/20/19 08:58 Albumin 3.5 g/dL (3.5-5.0) 08/20/19 08:58 Urine Color YELLOW 08/20/19 11:43 Urine Appearance CLEAR 08/20/19 11:43 Urine pH 5.0 (5.0-9.0) 08/20/19 11:43 Ur Specific [place] 1.027 08/20/19 11:43 Urine Protein NEGATIVE mg/dL (NEGATIVE) 08/20/19 11:43 Urine Glucose (UA) NEGATIVE mg/dL (NEGATIVE) 08/20/19 11:43 Urine Ketones NEGATIVE mg/dL (NEGATIVE) 08/20/19 11:43 Urine Blood NEGATIVE (NEGATIVE) 08/20/19 11:43 Urine Nitrite NEGATIVE (NEGATIVE) 08/20/19 11:43 Urine Bilirubin NEGATIVE (NEGATIVE) 08/20/19 11:43 Urine Urobilinogen NEGATIVE mg/dL (<2.0) 08/20/19 11:43 Ur Leukocyte Esterase NEGATIVE (NEGATIVE) 08/20/19 11:43 Urine WBC (Auto) 4 /HPF 08/20/19 11:43 Urine RBC (Auto) 1 /HPF 08/20/19 11:43 U Hyaline Cast (Auto) 1 /LPF 08/20/19 11:43 Squamous Epi Cells Auto <1 /HPF 08/20/19 11:43 Urine Mucus (Auto) FEW /LPF 08/20/19 11:43 Urine Ascorbic Acid 20 (NEGATIVE) H 08/20/19 11:43 Salicylates < 1.0 mg/dL (2.0-20.0) L 08/20/19 08:58 Urine Opiates Screen UNCONFIRMED POSITIVE 08/20/19 11:43 Urine Methadone Screen UNCONFIRMED POSITIVE 08/20/19 11:43 Acetaminophen < 10 ug/mL (10-30) L 08/20/19 08:58 Ur Barbiturates Screen NEGATIVE 08/20/19 11:43 Ur Phencyclidine Scrn NEGATIVE 08/20/19 11:43 Ur Amphetamines Screen UNCONFIRMED POSITIVE 08/20/19 11:43 U Benzodiazepines Scrn NEGATIVE 08/20/19 11:43 Urine Cocaine Screen UNCONFIRMED POSITIVE 08/20/19 11:43 U Marijuana (THC) Screen NEGATIVE 08/20/19 11:43 Serum Alcohol < 10 mg/dL (NONE DETECTED) 08/20/19 08:58 Impressions: Chest X-Ray 08/20/19 10:19 IMPRESSION: NO ACUTE RADIOGRAPHIC FINDING IN THE CHEST. Chest X-Ray 08/21/19 00:00 IMPRESSION: NO ACUTE RADIOGRAPHIC FINDING IN THE CHEST. Plan Time Spent: Less than 30 Minutes Stroke Is this a Stroke Patient?: No Stroke Pt being discharged on Anti-thrombolytic therapy?: No Reason(s) for not prescribing Anti-thrombolytic therapy:: Not indicated Acute Heart Failure - Is this a Heart Failure Patient?: No
--- NOTE | 2019-08-23 17:26 | PSYCHOLOGICAL NOTE ---
Psych Note - Psych Note Date seen by psych provider: 08/22/19 Psych Note: Made referral to [facility].
== END 2019-08-22 11:37 | disposition home or self-care (01) | DRG 918 ==
LOC: ER 08:41 → EH 14:02 → ICU 16:34
PROVIDERS: ADMIT Anesthesiology; ATTEND Anesthesiology
PROC: 3E0234Z Introduction of Serum, Toxoid and Vaccine into Muscle, Percutaneous Approach (ICD-10-PCS; principal; 2019-08-20)
DX: T40.3X1A Poisoning by methadone, accidental (unintentional), initial encounter (principal); T43.621A Poisoning by amphetamines, accidental (unintentional), initial encounter; T40.5X1A Poisoning by cocaine, accidental (unintentional), initial encounter; R40.1 Stupor; Y92.003 Bedroom of unspecified non-institutional (private) residence as the place of occurrence of the external cause; J44.9 Chronic obstructive pulmonary disease, unspecified; F17.210 Nicotine dependence, cigarettes, uncomplicated; Z88.0 Allergy status to penicillin; Z86.14 Personal history of Methicillin resistant Staphylococcus aureus infection; Z79.891 Long term (current) use of opiate analgesic; Z79.899 Other long term (current) drug therapy; Z23 Encounter for immunization; Z82.49 Family history of ischemic heart disease and other diseases of the circulatory system
CPT/HCPCS: 36415; 51701; 71045; 80048; 80053; 80307; 81001; 83605; 83735; 85025; 87040; 90686; 93005; 93010; 94640; 96365; 96375; 99291; J1650; J1940; J2185; J2310; J3370; J3490; J7030; J7040; J7060; J7620

== ENCOUNTER 2019-08-23 01:28 | Inpatient (IN) | payer BC ==
[2019-08-23] MEDS ORDERED: NALOXONE HCL INJ/PF 0.4 MG/1 ML SDV IV ONE ×2 (01:54→02:37)
[2019-08-23] MEDS ORDERED: ONDANSETRON HCL INJ/PF 4 MG/2 ML SDV ONE (02:03)
[2019-08-23] MEDS ORDERED: ONDANSETRON HCL INJ/PF 4 MG/2 ML SDV IV ONE (02:03)
--- NOTE | 2019-08-23 02:03 | ER Document Report ---
ED General - General Chief Complaint: Overdose Stated Complaint: POSSIBLE OVERDOSE Time Seen by Provider: 08/23/19 01:44 Primary Care Provider: CHRISTOPHER CARLISLE MD [Primary Care Provider] - Follow up as needed Notes: 64-year-old male brought to the emergency department via EMS. Friends or girlfriend apparently called 911 for difficulty breathing, when the police arrived and EMS arrived they found the patient unresponsive with agonal respirations on scene as well as track worthy on his arm and blood on his forearm. Police gave 2 mg of intranasal Narcan 2 separate doses before the patient woke up, to me the patient denies taking any narcotics or using any needles this evening. States that the blood on his arm must not have come from him. States that all he took were his home medications which include Mucinex and high blood pressure medications. Patient states that he was discharged from the ICU this morning after heroin overdose a few days ago. Radio call from EMS stated that the patient took oxycodone, but patient denies this. I have been unable to confirm exactly where the report of having taken oxycodone came from. Patient's only current complaint is that he feels cold. TRAVEL OUTSIDE OF THE [place] IN LAST 30 DAYS: No - Related Data Allergies/Adverse Reactions: Penicillins Allergy (Verified 04/17/19 09:58) Past Medical History - General Information source: Patient, Emergency Med Personnel, [facility] Records - Social History Smoking Status: Current Every Day Smoker Chew tobacco use (# tins/day): No Frequency of alcohol use: None Drug Abuse: Prescription drugs Family History: Reviewed & Not Pertinent Patient has suicidal ideation: No Patient has homicidal ideation: No - Past Medical History Cardiac Medical History: Denies: Hx Coronary Artery Disease, Hx Heart Attack, Hx Hypertension Pulmonary Medical History: Reports: Hx COPD Denies: Hx Asthma, Hx Bronchitis, Hx Pneumonia Neurological Medical History: Denies: Hx Cerebrovascular Accident, Hx Seizures Endocrine Medical History: Denies: Hx Diabetes Mellitus Type 1, Hx Diabetes Mellitus Type 2, Hx Hyperthyroidism, Hx Hypothyroidism Renal/ Medical History: Denies: Hx Peritoneal Dialysis GI Medical History: Denies: Hx Cirrhosis, Hx Hepatitis Musculoskeletal Medical History: Reports Hx Arthritis, Denies Hx Gout Skin Medical History: Denies Hx Eczema, Denies Hx Psoriasis Psychiatric Medical History: Denies: Hx Depression Infectious Medical History: Denies: Hx Hepatitis Past Surgical History: Reports: Other - Cyst removal - Immunizations Hx Diphtheria, Pertussis, Tetanus Vaccination: Yes Review of Systems - Review of Systems Constitutional: See HPI, Chills Respiratory: See HPI - Agonal/apneic respirations. Musculoskeletal: Back pain - Complaints of chronic back pain. -: Yes All other systems reviewed and negative Physical Exam - Vital signs Vitals: Pulse Ox 90 L 08/23/19 01:49 Interpretation: Hypoxic - Notes Notes: GENERAL: Awake when EMS brought him in although falls asleep quickly, easily able to be awakened again. Complains of being cold, slight tremor. Patient is increasingly hypoxic at the longer he is here, initially 92% on room air, then drops down to 88% and does not rebound despite requesting that he take deep breaths. Placed on 2 L via nasal cannula and this returns him to 95% oxygen saturation. HEAD: Normocephalic, atraumatic EYES: Pupils equal, round and reactive to light, extraocular movements intact. ENT: Oral mucosa moist, tongue midline. NECK: Full range of motion, supple, trachea midline. LUNGS: Rhonchi in the right lower lobe, no respiratory distress, no wheezes. HEART: Regular rate and rhythm, no murmurs, gallops, rubs. ABDOMEN: Soft, nontender, nondistended, bowel sounds present in all 4 quadrants. EXTREMITIES: Moves all 4 extremities spontaneously, no edema, radial and dorsalis pedis pulses 2/4 bilaterally. No cyanosis. NEUROLOGICAL: Awake and oriented x3, normal speech, no facial droop, biceps and patellar DTRs 2+ bilaterally. PSYCH: Mildly confrontational, appears annoyed when questioned about narcotic use. SKIN: Warm, Dry, normal turgor, track worthy on bilateral upper extremities, dried blood noted to the right sleeve of the shirt, no dried blood noted on his skin, some relatively fresh appearing track worthy to the left hand. Course - Re-evaluation Re-evalutation: 08/23/19 02:19 Patient was placed on oxygen 2 L via nasal cannula and placed on end-tidal CO2 monitor, end-tidal CO2 was measuring 33-35 until he was given another 0.4 mg of Narcan, within 2 minutes of receiving the Narcan his heart rate increased, he began to complain of increasing back pain and some abdominal pain, started gagging and dry heaving, yawning and became somewhat diaphoretic, his end-tidal CO2 did decrease to 18. I am ordering a septic work-up on this patient to ensure that we are not missing something however he is quite suspicious for narcotic overdose at this time. He will continue to be watched on the monitor. Chest x-ray will be performed to look for pneumonia given his hypoxia and the abnormal lung sounds. 08/23/19 02:37 Patient had improved with a decreased end-tidal CO2 but it is once again starting to increase into the upper 20s to low 30s when previously has been 18. When I walked back in the room he is no longer gagging or complaining of nausea. Starting to fall asleep but is aroused easily by verbal stimuli. Patient will be given 1 more dose of IV Narcan, if he requires a third dose here patient will be placed on a Narcan drip. 08/23/19 02:38 CBC shows a hemoglobin of 13.3 which is unchanged anemia from prior visit, coags normal, venous blood gas grossly unremarkable, CMP shows elevated glucose at 256, lactic acid only mildly elevated at 2.5, troponin pending, salicylates, acetaminophen and alcohol are all undetectable. 08/23/19 02:45 Patient is sleeping when I walk in the room however he is easily reawakened, when I asked him how he is doing he states he feels somewhat better, when asked him if he can tell me what happened tonight he states "I guess I overdosed". States that usually he uses heroin however sometimes he uses other things when he cannot get heroin. Patient does complain of back pain that he states is worse than usual, mostly located in his left low back and thigh. When questioned further he states that it has been worse since he was diagnosed with "blood poisoning" and states that he last finished having IV antibiotics for his endocarditis on approximately July 27. 08/23/19 03:18 Tachycardia is improving, when I walk in the room he immediately opens his eyes and is wide awake, discussed with the patient that if his oxygen level remained normal on room air that we could discharge him to home as there is no longer any evidence that he is still overly sedated from narcotics. Patient is agreeable to this plan. 08/23/19 03:27 After less than 10 minutes off of oxygen patient has already dropped down to 87% on room air. He wakes up immediately as I walk into the room, he was not sn oring, his oxygen does not normalize during the conversation it stays at 87%, patient has been placed back on oxygen and I am going to call hospitalist for admission. Suspect he aspirated during his apneic episode. 08/23/19 03:28 X-ray shows COPD but otherwise no acute process. 08/23/19 03:[address] Glasgow, suggest trying breathing treatment. I am agreeable to trying this. He will admit the patient to his service on a medical floor. 08/23/19 03:37 denies suicidal ideation. - Vital Signs Vital signs: Temp Pulse Resp BP Pulse Ox 97.8 F 92 18 105/69 95 08/23/19 01:52 08/23/19 01:52 08/23/19 02:16 08/23/19 02:16 08/23/19 02:16 - Laboratory Result Diagrams: 08/23/19 02:05 08/23/19 02:05 Laboratory results interpreted by me: 08/23/19 08/23/19 08/23/19 02:05 02:05 02:05 Hgb 13.3 L RDW 14.4 H Seg Neutrophils % 79.8 H Chloride 96 L Carbon Dioxide 32 H Glucose 256 H Lactic Acid 2.5 H Salicylates < 1.0 L Acetaminophen < 10 L - EKG Interpretation by Me Additional EKG results interpreted by me: 08/23/19 02:47 EKG shows sinus tachycardia at a rate of 103, left anterior hemiblock, incomplete right bundle branch block, no ST segment elevations or depressions, no T wave inversions per my interpretation. Critical Care Note - Critical Care Note Total time excluding time spent on procedures (mins): 35 Discharge - Discharge Clinical Impression: Hypoxia Narcotic overdose Qualifiers: Encounter type: initial encounter Injury intent: accidental or unintentional Qualified Code(s): T40.601A - Poisoning by unspecified narcotics, accidental (unintentional), initial encounter Condition: Fair Disposition: ADMITTED INPATIENT Admitting Provider: Myah (Hospitalist) Unit Admitted: Medical Floor Referrals: CHRISTOPHER CARLISLE MD [Primary Care Provider] - Follow up as needed
[2019-08-23 02:21] LABS: VENOUS BLOOD BASE EXCESS 2.9 mmol/L; VENOUS BLOOD HCO3 30.4 mmol/L (20-32); VENOUS BLOOD PCO2 59.9 mmHg (35-63); VENOUS BLOOD PH 7.32 (7.30-7.42)
[2019-08-23] MEDS ORDERED: NALOXONE HCL INJ/PF 0.4 MG/1 ML SDV ONE (02:26)
[2019-08-23 02:28] LABS: PROTHROMBIN TIME 13.2 SEC (11.4-15.4)
[2019-08-23 02:30] LABS: ABSOLUTE LYMPHOCYTES (AUTO) 1.3 10^3/uL (0.5-4.7); ABSOLUTE MONOCYTES (AUTO) 0.5 10^3/uL (0.1-1.4); ABSOLUTE NEUT (AUTO) 7.3 10^3/uL (1.7-8.2); BASOPHILS % (AUTO) 0.5 % (0-2); EOSINOPHILS % (AUTO) 0.5 % (0-6); HEMATOCRIT 38.6 % (37.9-51.0); HEMOGLOBIN 13.3 g/dL (13.5-17.0); LYMPHOCYTES % (AUTO) 13.7 % (13-45); MEAN CORPUSCULAR HGB CONC 34.4 g/dL (32.0-36.0); MEAN CORPUSCULAR VOLUME 84 fl (80-97); MONOCYTES % (AUTO) 5.5 % (3-13); PLATELET COUNT 223 10^3/uL (150-450); RED BLOOD COUNT 4.58 10^6/uL (4.35-5.55); RED CELL DISTRIBUTION WIDTH 14.4 % (11.5-14.0); SEGMENTED NEUTROPHILS % (AUTO) 79.8 % (42-78); TOTAL CELLS COUNTED % (AUTO) 100 %; WHITE BLOOD COUNT 9.2 10^3/uL (4.0-10.5)
[2019-08-23 02:36] LABS: ACETAMINOPHEN < 10 ug/mL (10-30); ALBUMIN 3.9 g/dL (3.5-5.0); ALCOHOL < 10 mg/dL (NONE DETECTED); ALKALINE PHOSPHATASE 71 U/L (38-126); ANION GAP 12 (5-19); ASPARTATE AMINO TRANSFERASE 41 U/L (17-59); BILIRUBIN,DIRECT 0.2 mg/dL (0.0-0.4); BILIRUBIN,TOTAL 0.3 mg/dL (0.2-1.3); BLOOD UREA NITROGEN 18 mg/dL (7-20); CARBON DIOXIDE 32 mmol/L (22-30); CHLORIDE 96 mmol/L (98-107); GLUCOSE 256 mg/dL (75-110); SALICYLATE < 1.0 mg/dL (2.0-20.0)
[2019-08-23] MEDS ORDERED: NORMAL SALINE 1000 ML 1,000 ML IV ONE (03:01)
--- NOTE | 2019-08-23 03:21 | RADIOLOGY REPORT (SQ) ---
EXAM DESCRIPTION: XR CHEST 2 VIEWS COMPLETED DATE/TME: 08/23/2019 01:54 CLINICAL HISTORY: 64 years, Male, hypoxia COMPARISON: 08/21/2019 chest NUMBER OF VIEWS: 2 TECHNIQUE: Frontal and lateral views of the chest LIMITATIONS: None. FINDINGS: Heart size is normal. Osteopenia. COPD. Lungs clear. No pneumothorax IMPRESSION: COPD. Lungs are clear copyright 2010 [employer]- All Rights Reserved
[2019-08-23] MEDS ORDERED: ALBUTEROL SULFATE 0.083% NEB 2.5 MG/3 ML AMPUL NEB ONE (03:36)
[2019-08-23 03:52] VITALS: BP 103/62
[2019-08-23] MEDS ORDERED: ONDANSETRON HCL INJ/PF 4 MG/2 ML SDV IV PRN (04:02)
[2019-08-23] MEDS ORDERED: MAG HYDROX/AL HYDROX/SIMETH SUSP 30 ML UDCUP PO PRN (04:02)
[2019-08-23] MEDS ORDERED: MAGNESIUM HYDROXIDE SUSP 30 ML UDCUP PO PRN (04:02)
[2019-08-23] MEDS ORDERED: LEVALBUTEROL HCL NEB 0.63 MG/3 ML AMPUL NEB PRN (04:02)
[2019-08-23] MEDS ORDERED: NALOXONE HCL INJ/PF 0.4 MG/1 ML SDV IV PRN (04:08)
[2019-08-23] MEDS ORDERED: METHYLPREDNISOLONE INJ 125 MG/2 ML SDV IV ONE (04:12)
[2019-08-23] MEDS ORDERED: NICOTINE 21 MG/24 HR PATCH.TD24 TD PRN (04:12)
[2019-08-23] MEDS ORDERED: ACETAMINOPHEN 325 MG TABLET PO PRN (04:12)
[2019-08-23 04:22] LABS: APPEARANCE,URINE SLIGHTLY-CLOUDY; BILIRUBIN,URINE NEGATIVE (NEGATIVE); COLOR,URINE AMBER; GLUCOSE, URINE 150 mg/dL (NEGATIVE); KETONES,URINE NEGATIVE (NEGATIVE); LEUKOCYTE ESTERASE,URINE NEGATIVE (NEGATIVE); NITRITE,URINE NEGATIVE (NEGATIVE); PROTEIN,URINE NEGATIVE (NEGATIVE); URINE SPECIFIC GRAVITY 1.017; UROBILINOGEN,URINE NEGATIVE mg/dL (<2.0)
[2019-08-23 04:31] LABS: URINE AMPHETAMINES SCREEN NEGATIVE; URINE BARBITURATES SCREEN NEGATIVE; URINE BENZODIAZEPINES SCREEN NEGATIVE; URINE COCAINE SCREEN UNCONFIRMED POSITIVE; URINE MARIJUANA (THC) SCREEN NEGATIVE; URINE METHADONE SCREEN UNCONFIRMED POSITIVE; URINE PHENCYCLIDINE SCREEN NEGATIVE
[2019-08-23] MEDS ORDERED: RINGERS SOLUTION,LACTATED 1,000 ML IV PRN (05:12)
--- NOTE | 2019-08-23 05:57 | PDOC H&P ---
History of Present Illness Admission Date/PCP: 08/23/2019 03:38 CHRISTOPHER CARLISLE MD Patient complains of: Hypoxia History of Present Illness: JANETH GRAF is a 64 year old male who was brought to the emergency room via EMS after apparently overdosing at a private residence in the presence of his girlfriend. Upon their arrival the police found the patient to have a fresh IV injection site draining blood on his forearm. Please administered 2 mg of intranasal Narcan x2 doses resulting in the patient becoming awake and alert and denying using any narcotics or needles. He continues to deny use and insists that the blood on his forearm must have come from someone else. He was recently admitted to the hospital for a narcotic overdose and was treated with a Narcan drip in the ICU prior to his discharge on the morning of 08/22/2019. In the emergency room he was treated with 3 additional single doses of intravenous Narcan and responded well with alertness and appropriate respiratory effort. He was noted by the emergency room physician to require oxygen at 2 L/min and to maintain an O2 sat greater than 93%. Patient was subsequently admitted to the hospital for further evaluation and treatment. Past Medical History Cardiac Medical History: Denies: Coronary Artery Disease, Myocardial Infarction, Hypertension Pulmonary Medical History: Reports: Chronic Obstructive Pulmonary Disease (COPD) Denies: Asthma, Bronchitis, Pneumonia EENT Medical History: Denies: Cataracts, Ears - Hearing aids Neurological Medical History: Denies: Hemorrhagic CVA, Ischemic CVA, Seizures Endocrine Medical History: Denies: Diabetes Mellitus Type 1, Diabetes Mellitus Type 2, Hyperthyroidism, Hypothyroidism Renal/ Medical History: Denies: Chronic Kidney Disease, Nephrolithiasis Malignancy Medical History: Reports: None GI Medical History: Denies: Cirrhosis, Crohn's Disease, Hepatitis, Ulcerative Colitis Musculoskeltal Medical History: Reports: Arthritis Denies: Gout Skin Medical History: Denies: Eczema, Psoriasis Psychiatric Medical History: Reports: Substance Abuse, Tobacco Dependency Denies: Alcohol Dependency, Depression Traumatic Medical History: Reports: None Hematology: Denies: Anemia, Bleeding Tendencies Infectious Medical History: Reports: None Past Surgical History Past Surgical History: Reports: Other - Cyst removal Social History Information Source: Patient Smoking Status: Current Every Day Smoker Frequency of Alcohol Use: Social Hx Recreational Drug Use: Yes Drugs: Cocaine, Marijuana, Methadone, Other Hx Prescription Drug Abuse: No - Advance Directive Resuscitation Status: Full Code Surrogate healthcare decision maker:: Mikaela Graf Family History Family History: CAD, Hypertension. denies: DM, Malignancy Parental Family History Reviewed: Yes Children Family History Reviewed: No Sibling(s) Family History Reviewed.: Yes Medication/Allergy Home Medications: Docusate Sodium [Colace 100 mg Capsule] 100 mg PO DAILYP PRN 06/02/19 Famotidine [Pepcid 20 mg Tablet] 20 mg PO BID 08/20/19 Guaifenesin [Mucinex Sr 600 mg Tablet.sa] 600 mg PO Q12 08/20/19 Ipratropium/Albuterol Sulfate [Combivent Respimat 4 gm Mdi] 1 puff IH QID 08/20/19 Levocetirizine Dihydrochloride [Xyzal] 5 mg PO QPM 08/20/19 Lidocaine [Aspercreme] 1 each TP BID 08/20/19 Lisinopril [Prinivil 5 mg Tablet] 5 mg PO DAILY 08/20/19 Meloxicam [Mobic] 7.5 mg PO DAILY 08/20/19 Polyethylene Glycol 3350 [Miralax Powder 17 gm/Packet] 1 packet PO DAILY 08/20/19 Lisinopril [Prinivil 5 mg Tablet] 5 mg PO DAILY tablet 08/22/19 Venlafaxine HCl ER [Effexor Xr 37.5 mg Cap.sr] 37.5 mg PO Q12 #60 cap.sr.24h 08/22/19 Allergies/Adverse Reactions: Penicillins Allergy (Verified 04/17/19 09:58) Review of Systems Constitutional: ABSENT: chills, fever(s) Eyes: ABSENT: visual disturbances, other - Eye pain Ears: ABSENT: hearing changes, other - Ear pain Nose, Mouth, and Throat: ABSENT: mouth pain, sore throat Cardiovascular: ABSENT: chest pain, palpitations Respiratory: ABSENT: cough, dyspnea Gastrointestinal: ABSENT: abdominal pain, constipation, diarrhea, nausea, vomiting Genitourinary: ABSENT: dysuria, hematuria Musculoskeletal: ABSENT: back pain, joint swelling, muscle weakness Integumentary: ABSENT: pruritus, rash Neurological: ABSENT: confusion, convulsions, focal weakness, memory loss, syncope Psychiatric: ABSENT: anxiety, depression Endocrine: ABSENT: cold intolerance, heat intolerance Hematologic/Lymphatic: ABSENT: easy bleeding, easy bruising Allergic/Immunologic: ABSENT: seasonal rhinorrhea Physical Exam Vital Signs: Temp Pulse Resp BP Pulse Ox 97.8 F 92 18 105/69 95 08/23/19 01:52 08/23/19 01:52 08/23/19 02:16 08/23/19 02:16 08/23/19 02:16 Intake & Output 08/21/19 08/22/19 08/23/19 23:59 23:59 23:59 Weight 81 kg General appearance: PRESENT: no acute distress, cooperative Head exam: PRESENT: atraumatic, normocephalic Eye exam: PRESENT: conjunctiva pink. ABSENT: conjunctival injection, scleral icterus Ear exam: PRESENT: normal external ear exam. ABSENT: bleeding, drainage Mouth exam: PRESENT: dry mucosa, neck supple Neck exam: ABSENT: thyromegaly, tracheal deviation Respiratory exam: PRESENT: decreased breath sounds - Minimally decreased breath sounds throughout all martin insistent with mild to moderate COPD, prolonged expiratory phas - Mildly prolonged expiratory phase throughout all martin, symmetrical, unlabored, wheezes - Mild expiratory wheezes present throughout all martin. ABSENT: rales, rhonchi Cardiovascular exam: PRESENT: RRR. ABSENT: clicks, gallop, rubs Pulses: PRESENT: normal radial pulses, normal dorsalis pedis pul Vascular exam: PRESENT: normal capillary refill. ABSENT: pallor GI/Abdominal exam: PRESENT: normal bowel sounds, soft Rectal exam: PRESENT: deferred Extremities exam: ABSENT: joint swelling, pedal edema Musculoskeletal exam: ABSENT: deformity, dislocation Neurological exam: PRESENT: alert, oriented to person, oriented to place, oriented to time, oriented to situation, CN II-XII grossly intact. ABSENT: gena r sensory deficit Psychiatric exam: PRESENT: appropriate affect, normal mood Skin exam: PRESENT: dry, intact, warm. ABSENT: jaundice, rash, urticaria Results Laboratory Results: 08/23/19 02:05 08/23/19 02:05 08/23/19 08/23/19 08/23/19 02:05 02:05 02:05 WBC 9.2 RBC 4.58 Hgb 13.3 L Hct 38.6 MCV 84 MCH 29.0 MCHC 34.4 RDW 14.4 H Plt Count 223 Seg Neutrophils % 79.8 H VBG pH VBG pCO2 VBG HCO3 VBG Base Excess Sodium 139.5 Potassium 4.0 Chloride 96 L Carbon Dioxide 32 H Anion Gap 12 BUN 18 Creatinine 0.82 Est GFR ( Amer) > 60 Glucose 256 H Lactic Acid 2.5 H Calcium 9.0 Total Bilirubin 0.3 AST 41 Alkaline Phosphatase 71 Total Protein 7.0 Albumin 3.9 08/23/19 02:05 WBC RBC Hgb Hct MCV MCH MCHC RDW Plt Count Seg Neutrophils % VBG pH 7.32 VBG pCO2 59.9 VBG HCO3 30.4 VBG Base Excess 2.9 Sodium Potassium Chloride Carbon Dioxide Anion Gap BUN Creatinine Est GFR ( Amer) Glucose Lactic Acid Calcium Total Bilirubin AST Alkaline Phosphatase Total Protein Albumin 08/23/19 02:05 Troponin I < 0.012 Impressions: Chest X-Ray 08/23/19 01:54 IMPRESSION: COPD. Lungs are clear copyright 2011 [employer]- All Rights Reserved Assessment and Plan - Diagnosis (1) Acute respiratory failure with hypoxia Is this a current diagnosis for this admission?: Yes Plan: Patient's hypoxia is most likely due to his chronic obstructive pulmonary disease combined with his acute narcotic overdose. He will be treated with supplemental oxygen and any adjuvant therapy that is required along with the therapy as outlined in his COPD problem. (2) COPD (chronic obstructive pulmonary disease) Qualifiers: COPD type: unspecified COPD Qualified Code(s): J44.9 - Chronic obstructive pulmonary disease, unspecified Is this a current diagnosis for this admission?: Yes Plan: Patient be treated with a pulmonary toilet utilizing Xopenex, Atrovent, Pulmicort and Mucomyst delivered via nebulizer treatments. He will receive intravenous Solu-Medrol in a short course of therapy regimen. He will be given supplemental oxygen as required to maintain O2 sat between 90 and 94% (3) Narcotic overdose Qualifiers: Encounter type: initial encounter Injury intent: accidental or unintentional Qualified Code(s): T40.601A - Poisoning by unspecified messi cotics, accidental (unintentional), initial encounter Is this a current diagnosis for this admission?: Yes Plan: Patient will be observed closely for any recurrence of his opiate narcosis. He will receive Narcan 0.4 mg IV q. 5 minutes as needed for any recurrence of narcosis. (4) IV drug abuse Is this a current diagnosis for this admission?: Yes Plan: Cessation of IV drug use is strongly advised and counseled briefly. (5) Tobacco use disorder, severe, dependence Is this a current diagnosis for this admission?: Yes Plan: Cessation of tobacco use is advised and cessation of smoking is counseled iam mora at the bedside. A nicotine replacement patch will be available for patients use during his hospital stay. - Time Time Spent with patient: 15-24 minutes Smoking Cessation Education: 3 to 10 minutes Medications reviewed and adjusted accordingly: Yes Anticipated discharge: Home - Inpatient Certification Based on my medical assessment, after consideration of the patient's comorbidities, presenting symptoms, or acuity I expect that the services needed warrant INPATIENT care.: Yes I certify that my determination is in accordance with my understanding of Medicare's requirements for reasonable and necessary INPATIENT services [42 CFR 412.3e].: Yes Medical Necessity: Need Close Monitoring Due to Risk of Patient Decompensation, Need for Nebulizer Therapy and Monitoring of Response, Risk of Complication if Not Cared For in Hospital
[2019-08-23 05:59] LABS: ARTERIAL BLOOD BASE EXCESS 1.4 mmol/L; ARTERIAL BLOOD H2CO3 1.49 mmol/L (1.05-1.35); ARTERIAL BLOOD HCO3 27.5 mmol/L (20-24); ARTERIAL BLOOD PCO2 49.5 mmHg (35-45); ARTERIAL BLOOD PH 7.36 (7.35-7.45); ARTERIAL BLOOD PO2 60.3 mmHg (80-100)
--- NOTE | 2019-08-23 05:59 | Left Against Medical Advice ---
Against Medical Advice Admission Date/Time: 08/23/19 05:13 Primary Care Provider: CHRISTOPHER CARLISLE MD Date of Patient Emigration: 08/23/19 - Diagnosis: (1) Acute respiratory failure with hypoxia Is this a current diagnosis for this admission?: Yes (2) COPD (chronic obstructive pulmonary disease) Is this a current diagnosis for this admission?: Yes (3) Narcotic overdose Is this a current diagnosis for this admission?: Yes (4) IV drug abuse Is this a current diagnosis for this admission?: Yes (5) Tobacco use disorder, severe, dependence Is this a current diagnosis for this admission?: Yes - Summary: Summary: Please see Admission and Progress Notes as well. JANETH VARGAS is a 64 M, who LEFT AGAINST MEDICAL ADVICE. The Patient was admitted on 08/23/19 05:13. JANETH VARGAS is a 64 year old male who was brought to the emergency room via EMS after apparently overdosing at a private residence in the presence of his girlfriend. Upon their arrival the police found the patient to have a fresh IV injection site draining blood on his forearm. Please administered 2 mg of intranasal Narcan x2 doses resulting in the patient becoming awake and alert and denying using any narcotics or needles. He continues to deny use and insists that the blood on his forearm must have come from someone else. He was recently admitted to the hospital for a narcotic overdose and was treated with a Narcan drip in the ICU prior to his discharge on the morning of 08/22/2019. In the emergency room he was treated with 3 additional single doses of intravenous Narcan and responded well with alertness and appropriate respiratory effort. He was noted by the emergency room physician to require oxygen at 2 L/min and to maintain an O2 sat greater than 93%. Patient was subsequently admitted to the hospital for further evaluation and treatment. After receiving a breathing treatment in the ER, the patient decided he was feeling considerably better and breathing well enough to leave AGAINST MEDICAL ADVICE.
[2019-08-23 06:00] LABS: ARTERIAL BLOOD FIO2 2L
[2019-08-23] MEDS ORDERED: HEPARIN SOD (PORCINE) 5,000 UNIT/ML 1 ML VIAL SUBCUT SCH (06:00)
[2019-08-23] MEDS ORDERED: BUDESONIDE NEB 0.5 MG/2 ML AMPUL NEB SCH (08:00)
[2019-08-23] MEDS ORDERED: LEVALBUTEROL HCL NEB 1.25 MG/3 ML AMPUL NEB SCH (08:00)
[2019-08-23] MEDS ORDERED: ACETYLCYSTEINE 20% SOLN 800 MG/4 ML VIAL.NEB NEB SCH (08:00)
[2019-08-23] MEDS ORDERED: IPRATROPIUM BROMIDE 0.02% NEB 0.5 MG/2.5 ML AMPUL NEB SCH (08:00)
--- NOTE | 2019-08-23 08:03 | EKG REPORT ---
SEVERITY:- ABNORMAL ECG - SINUS TACHYCARDIA INCOMPLETE RBBB AND LAFB : Confirmed by: Aracelis Yin MD 23-Aug-2019 08:02:52
[2019-08-23] MEDS ORDERED: DOCUSATE SODIUM 100 MG CAPSULE PO SCH (10:00)
[2019-08-23] MEDS ORDERED: FAMOTIDINE 20 MG TABLET PO SCH (10:00)
[2019-08-23] MEDS ORDERED: METHYLPREDNISOLONE INJ 40 MG/1 ML SDV IV SCH (12:00)
[2019-08-23] MEDS ORDERED: MELATONIN 5 MG TABLET PO SCH (22:00)
== END 2019-08-23 06:00 | disposition left against medical advice (07) | DRG 917 ==
LOC: ER 01:28 → EH 04:02 → UNDOADMIN 05:13 → ER 06:00
PROVIDERS: ADMIT Emergency Medicine; ATTEND Emergency Medicine
DX: T40.601A Poisoning by unspecified narcotics, accidental (unintentional), initial encounter (principal); J96.01 Acute respiratory failure with hypoxia; Y92.009 Unspecified place in unspecified non-institutional (private) residence as the place of occurrence of the external cause; J44.9 Chronic obstructive pulmonary disease, unspecified; F17.210 Nicotine dependence, cigarettes, uncomplicated; Z79.899 Other long term (current) drug therapy; Z88.0 Allergy status to penicillin; Z82.49 Family history of ischemic heart disease and other diseases of the circulatory system; Z53.29 Procedure and treatment not carried out because of patient's decision for other reasons
CPT/HCPCS: 36415; 71046; 80053; 80307; 81001; 82803; 83605; 84484; 85025; 85610; 87040; 87086; 93005; 93010; J2310; J2405; J2930; J7030

== ENCOUNTER 2020-03-19 23:44 | Inpatient (IN) | payer BC ==
[2020-03-20 00:11] LABS: ABSOLUTE BASOPHILS # (AUTO) 0.1 10^3/uL (0.0-0.2); ABSOLUTE LYMPHOCYTES (AUTO) 2.1 10^3/uL (0.5-4.7); BASOPHILS % (AUTO) 0.4 % (0-2); EOSINOPHILS % (AUTO) 0.2 % (0-6); HEMATOCRIT 44.5 % (37.9-51.0); HEMOGLOBIN 15.7 g/dL (13.5-17.0); LYMPHOCYTES % (AUTO) 12.3 % (13-45); MEAN CORPUSCULAR HEMOGLOBIN 28.9 pg (27.0-33.4); MEAN CORPUSCULAR HGB CONC 35.2 g/dL (32.0-36.0); MEAN CORPUSCULAR VOLUME 82 fl (80-97); MONOCYTES % (AUTO) 5.6 % (3-13); PLATELET COUNT 213 10^3/uL (150-450); RED BLOOD COUNT 5.42 10^6/uL (4.35-5.55); RED CELL DISTRIBUTION WIDTH 15.6 % (11.5-14.0); SEGMENTED NEUTROPHILS % (AUTO) 81.5 % (42-78); TOTAL CELLS COUNTED % (AUTO) 100 %; WHITE BLOOD COUNT 17.2 10^3/uL (4.0-10.5)
[2020-03-20] MEDS ORDERED: NORMAL SALINE 500 ML IV ONE (00:12)
[2020-03-20 00:17] LABS: VENOUS BLOOD BASE EXCESS 3.7 mmol/L; VENOUS BLOOD HCO3 31.3 mmol/L (20-32); VENOUS BLOOD PCO2 58.7 mmHg (35-63); VENOUS BLOOD PH 7.35 (7.30-7.42)
[2020-03-20 00:27] LABS: ALBUMIN 4.1 g/dL (3.5-5.0); ALKALINE PHOSPHATASE 68 U/L (38-126); ANION GAP 7 (5-19); ASPARTATE AMINO TRANSFERASE 35 U/L (17-59); BILIRUBIN,TOTAL 1.3 mg/dL (0.2-1.3); BLOOD UREA NITROGEN 13 mg/dL (7-20); CALCIUM 8.9 mg/dL (8.4-10.2); CARBON DIOXIDE 29 mmol/L (22-30); CHLORIDE 97 mmol/L (98-107); GLUCOSE 114 mg/dL (75-110); POTASSIUM 4.6 mmol/L (3.6-5.0); TOTAL PROTEIN 7.6 g/dL (6.3-8.2)
--- NOTE | 2020-03-20 00:37 | RADIOLOGY REPORT (SQ) ---
EXAM DESCRIPTION: XR CHEST 1 VIEW COMPLETED DATE/TME: 03/19/2020 23:49 CLINICAL HISTORY: 64 years, Male, SOB COMPARISON: 10-19 chest NUMBER OF VIEWS: 1 TECHNIQUE: Portable chest LIMITATIONS: None. FINDINGS: The heart size is normal. There is underlying COPD. Airspace opacities of the lateral right upper lobe and right lung base worrisome for pneumonia. No pneumothorax. Osteopenia IMPRESSION: Right upper and right lower lobe airspace opacities, worrisome for pneumonia copyright 2011 [employer]- All Rights Reserved
[2020-03-20] MEDS ORDERED: AZITHROMYCIN INJ 500 MG VIAL IV ONE (00:40)
[2020-03-20] MEDS ORDERED: CEFTRIAXONE 1 GM/D5W RTU 1 GM/50 ML RTUPB IV ONE (00:40)
[2020-03-20 00:44] LABS: PROTHROMBIN TIME 13.2 SEC (11.4-15.4)
--- NOTE | 2020-03-20 00:54 | ER Document Report ---
ED General - General Chief Complaint: Shortness Of Breath Stated Complaint: FEVER,SHORTNESS OF BREATH Time Seen by Provider: 03/19/20 23:57 Primary Care Provider: CHRISTOPHER CARLISLE MD [Primary Care Provider] - Follow up as needed TRAVEL OUTSIDE OF THE [place] IN LAST 30 DAYS: No - HPI Notes: Patient is a 64-year-old male who presents to the emergency department for evaluation of fever, cough. Evidently 3 or 4 days ago, he accidentally got knocked off of a 4 foot ladder. He fell onto his left side. In the last 24 hours he developed a fever of 102 degrees. He complains of some mild shortness of breath. He complains of sharp left-sided chest pain, worsened with touching. He denies hitting his head or losing consciousness. No neck or back pain. - Related Data Allergies/Adverse Reactions: Penicillins Allergy (Verified 04/17/19 09:58) Past Medical History - General Information source: Patient - Social History Smoking Status: Current Every Day Smoker Frequency of alcohol use: None Drug Abuse: None - Former IV drug abuse Family History: CAD, Hypertension. denies: DM, Malignancy Patient has suicidal ideation: No Patient has homicidal ideation: No - Past Medical History Cardiac Medical History: Reports: Other - History of endocarditis Denies: Hx Coronary Artery Disease, Hx Heart Attack, Hx Hypertension Pulmonary Medical History: Reports: Hx COPD Denies: Hx Asthma, Hx Bronchitis, Hx Pneumonia Neurological Medical History: Denies: Hx Cerebrovascular Accident, Hx Seizures Endocrine Medical History: Denies: Hx Diabetes Mellitus Type 1, Hx Diabetes Mellitus Type 2, Hx Hyperthyroidism, Hx Hypothyroidism Renal/ Medical History: Denies: Hx Peritoneal Dialysis GI Medical History: Denies: Hx Cirrhosis, Hx Crohn's Disease, Hx Hepatitis, Hx Ulcerative Colitis Musculoskeletal Medical History: Reports Hx Arthritis, Denies Hx Gout Skin Medical History: Denies Hx Eczema, Denies Hx Psoriasis Psychiatric Medical History: Denies: Hx Depression Infectious Medical History: Denies: Hx Hepatitis Past Surgical History: Reports: Other - Cyst removal - Immunizations Hx Diphtheria, Pertussis, Tetanus Vaccination: Yes Review of Systems - Review of Systems Constitutional: See HPI Cardiovascular: See HPI Gastrointestinal: See HPI -: Yes All other systems reviewed and negative Physical Exam - Vital signs Vitals: Pulse Ox 86 L 03/19/20 23:44 - Notes Notes: This is a 64-year-old male who appears his stated age, no acute distress. Vital signs reviewed, please refer to chart. Head is normocephalic, atraumatic. Pupils equal round, reactive to light. Neck is supple without meningismus. Heart is regular rate and rhythm. Lungs reveal diminished breath sounds to bilateral bases, right greater than left. Patient with an abrasion over the left inferior chest wall and upper abdomen, no subcutaneous emphysema. Chest wall excursion is equal bilaterally. Abdomen is soft, nontender, normoactive bowel sounds throughout. Extremities without cyanosis, clubbing. Posterior calves are nontender. Peripheral pulses are equal. Skin is warm and dry. Patient is awake, alert, neurological exam is nonfocal. Course - Re-evaluation Re-evalutation: 03/20/20 00:53 Patient presents to the emergency department for evaluation. Because of the reported fever, he was brought to the COVID section. The patient denies any known exposure to COVID 19, no recent travel. He was found to be hypoxic and placed on oxygen per nasal cannula. He was placed on a powder monkey. Laboratory investigations were obtained, including septic work-up. His chest x- ray was concerning for right upper and lower lobe pneumonia. He has a 17.9 white count. He is given a sepsis fluid bolus. He is given Rocephin and Zithromax. Will contact medicine for admission. 03/20/20 01:[address] Glasgow. He states that he would feel more comfortable having a CT scan of the head performed on this individual prior to admission. CT scan of the head was performed. I reviewed the CT without the aid of a radiologist, I do not appreciate any acute fractures or intracranial bleeding. Patient is stable. I spoke with Dr. Glasgow, notified him that I did not see any abnormalities on the CT. He will accept the patient for admission. 03/20/20 01:48 Please note again, the patient does not have any COVID-19 risk factors. I discussed this with Dr. Glasgow, and it was agreed that the patient does not require COVID testing at this time. - Vital Signs Vital signs: Temp Pulse Resp BP Pulse Ox 100.0 F 16 162/85 H 95 03/19/20 23:49 03/20/20 01:30 03/20/20 01:30 03/20/20 01:30 - Laboratory Result Diagrams: 03/19/20 23:45 03/19/20 23:45 Laboratory results interpreted by me: 03/19/20 03/19/20 23:45 23:45 WBC 17.2 H RDW 15.6 H Lymph % (Auto) 12.3 L Absolute Neuts (auto) 14.0 H Seg Neutrophils % 81.5 H Sodium 133.0 L Chloride 97 L Glucose 114 H - Diagnostic Test Radiology reviewed: Image reviewed, Reports reviewed Radiology results interpreted by me: 03/20/20 00:53 Chest X-Ray 03/19/20 23:49 IMPRESSION: Right upper and right lower lobe airspace opacities, worrisome for pneumonia copyright 2011 [facility]- All Rights Reserved - EKG Interpretation by Me Additional EKG results interpreted by me: 03/20/20 00:54 Sinus mechanism with rate of 97 bpm. Left axis deviation. Incomplete bundle branch block. Nonspecific ST changes, but no acute changes concerning for ischemia or infarction. No old studies immediately available for comparison. Discharge - Discharge Clinical Impression: Hypoxia Sepsis Qualifiers: Severe sepsis acute organ dysfunction type: acute respiratory failure Acute respiratory failure type: with hypoxia Severe sepsis shock status: without septic shock Pneumonia Qualifiers: Laterality: right Lung location: unspecified part of lung Condition: Stable Disposition: ADMITTED INPATIENT Admitting Provider: Myah (Hospitalist) Unit Admitted: Medical Floor Referrals: CHRISTOPHER CARLISLE MD [Primary Care Provider] - Follow up as needed
[2020-03-20] MEDS: NORMAL SALINE 1000 ML 1,000 ML IV PRN ×2 (01:05→02:23)
[2020-03-20] MEDS ORDERED: LEVALBUTEROL HCL NEB 0.63 MG/3 ML AMPUL NEB PRN (01:48)
[2020-03-20] MEDS ORDERED: GUAIFENESIN SYRP 200 MG/10 ML UDC PO PRN (01:48)
--- NOTE | 2020-03-20 01:50 | RADIOLOGY REPORT (SQ) ---
EXAM DESCRIPTION: [facility]: CT HEAD WITHOUT IV CONTRAST CLINICAL HISTORY: 64 years Male; fall; TECHNIQUE: Noncontrast CT head. All CT scans at this facility use dose modulation, iterative reconstruction, and/or weight based dosing when appropriate to reduce radiation dose to as low as reasonably achievable. COMPARISON: CT 06/02/2019 FINDINGS: Rosas matter, white matter, ventricles, and cisterns are within normal limits. No acute hemorrhage or mass effect. Visualized portions of paranasal sinuses and mastoids are clear. No acute calvarial fractures. IMPRESSION: 1. No acute intracranial findings.
[2020-03-20] MEDS ORDERED: LORAZEPAM INJ 2 MG/1 ML VIAL IV PRN (01:57)
[2020-03-20] MEDS ORDERED: MORPHINE SULFATE 10 MG/ML INJ IV PRN ×3 (01:57)
[2020-03-20] MEDS ORDERED: NICOTINE 21 MG/24 HR PATCH.TD24 TD PRN (01:57)
--- NOTE | 2020-03-20 04:35 | PDOC H&P ---
History of Present Illness Admission Date/PCP: 03/20/2020 00:55 CHRISTOPHER CARLISLE MD Patient complains of: Dyspnea History of Present Illness: JANETH GRAF is a 64 year old male who presented to the emergency room with a 4- day history of increased dyspnea. He admits a history of COPD but suffered a fall from a 4 foot ladder onto his left side 4 days ago and since that time he has experienced increased dyspnea accompanied by sharp pain in his left side with deep inspirations, movements of the chest and pressure on the left lower lateral posterior ribs. His dyspnea has also been associated with a nonproductive cough and the development of a fever over the last day. His dyspnea worsens with any exertion. He denies other associated or accompanying signs and symptoms. He denies prior similar episodes. He denies experiencing other injuries in the fall. Has not identified any additional aggravating or ameliorating factors for his dyspnea. In the emergency room he was found to campos ve a right upper and lower pneumonia by chest x-ray with an elevated white blood count on his CBC and hypoxia on room air. He was subsequently admitted to the hospital for further evaluation and treatment per the pneumonia protocol. Past Medical History Cardiac Medical History: Reports: Hypertension, Other - History of MRSA endocarditis Denies: Coronary Artery Disease, Myocardial Infarction Pulmonary Medical History: Reports: Bronchitis, Chronic Obstructive Pulmonary Disease (COPD), Respiratory Failure Denies: Asthma, Pneumonia EENT Medical History: Denies: Cataracts, Ears - Hearing aids Neurological Medical History: Denies: Hemorrhagic CVA, Ischemic CVA, Seizures Endocrine Medical History: Denies: Diabetes Mellitus Type 1, Diabetes Mellitus Type 2, Hyperthyroidism, Hypothyroidism Renal/ Medical History: Denies: Chronic Kidney Disease, Nephrolithiasis Malignancy Medical History: Reports: None GI Medical History: Denies: Cirrhosis, Crohn's Disease, Hepatitis, Ulcerative Colitis Musculoskeltal Medical History: Reports: Arthritis Denies: Gout Skin Medical History: Denies: Eczema, Psoriasis Psychiatric Medical History: Reports: Substance Abuse, Tobacco Dependency Denies: Alcohol Dependency, Depression Traumatic Medical History: Reports: None Hematology: Denies: Anemia, Bleeding Tendencies Infectious Medical History: 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 denies: DM, Malignancy Parental Family History Reviewed: Yes Children Family History Reviewed: No Sibling(s) Family History Reviewed.: Yes Medication/Allergy Home Medications: Docusate Sodium [Colace 100 mg Capsule] 100 mg PO DAILYP PRN 06/02/19 Famotidine [Pepcid 20 mg Tablet] 20 mg PO BID 08/20/19 Guaifenesin [Mucinex Sr 600 mg Tablet.sa] 600 mg PO Q12 08/20/19 Ipratropium/Albuterol Sulfate [Combivent Respimat 4 gm Mdi] 1 puff IH QID 08/20/19 Levocetirizine Dihydrochloride [Xyzal] 5 mg PO QPM 08/20/19 Lidocaine [Aspercreme Lidocaine] 1 each TP BID 08/20/19 Lisinopril [Prinivil 5 mg Tablet] 5 mg PO DAILY 08/20/19 Meloxicam [Mobic] 7.5 mg PO DAILY 08/20/19 Polyethylene Glycol 3350 [Miralax Powder 17 gm/Packet] 1 packet PO DAILY 08/20/19 Lisinopril [Prinivil 5 mg Tablet] 5 mg PO DAILY tablet 08/22/19 Venlafaxine HCl ER [Effexor Xr 37.5 mg Cap.sr] 37.5 mg PO Q12 #60 cap.sr.24h 1 Allergies/Adverse Reactions: Penicillins Allergy (Verified 04/17/19 09:58) Review of Systems Constitutional: PRESENT: as per HPI, chills, fever(s) Eyes: ABSENT: visual disturbances, other - Eye pain Ears: ABSENT: hearing changes, other - Ear pain Nose, Mouth, and Throat: ABSENT: headache(s), sore throat Cardiovascular: PRESENT: as per HPI, chest pain, dyspnea on exertion Respiratory: PRESENT: as per HPI, cough, dyspnea. ABSENT: sputum Gastrointestinal: ABSENT: abdominal pain, constipation, diarrhea, nausea, vomiting Genitourinary: ABSENT: dysuria, hematuria Musculoskeletal: ABSENT: back pain, joint swelling Integumentary: ABSENT: pruritus, rash Neurological: ABSENT: confusion, convulsions, focal weakness, memory loss, syncope Psychiatric: ABSENT: anxiety, depression Endocrine: ABSENT: cold intolerance, heat intolerance, polydipsia, polyphagia, polyuria Hematologic/Lymphatic: ABSENT: easy bleeding, easy bruising Allergic/Immunologic: ABSENT: seasonal rhinorrhea Physical Exam Vital Signs: Temp Pulse Resp BP Pulse Ox 100.0 F 18 146/87 H 91 L 03/19/20 23:49 03/19/20 23:49 03/19/20 23:49 03/19/20 23:49 Intake & Output 03/18/20 03/19/20 03/20/20 23:59 23:59 23:59 Intake Total 500 Balance 500 Weight 79.379 kg General appearance: PRESENT: no acute distress, cooperative Head exam: PRESENT: atraumatic, normocephalic Eye exam: PRESENT: conjunctiva pink. ABSENT: conjunctival injection, scleral icterus Ear exam: PRESENT: normal external ear exam. ABSENT: bleeding, drainage Mouth exam: PRESENT: dry mucosa, neck supple Teeth exam: PRESENT: edentulous, other - Wearing dentures Neck exam: ABSENT: thyromegaly, tracheal deviation Respiratory exam: PRESENT: chest wall tenderness - Left lateral and posterior lower chest wall tender to palpation, prolonged expiratory phas - Mildly prolonged expiratory phase throughout all martin, rales - Coarse rales noted in right lower lung matrin, symmetrical, unlabored, other - On supplemental oxygen via nasal cannula at the time of my exam. Cardiovascular exam: PRESENT: RRR. ABSENT: clicks, gallop, rubs Pulses: PRESENT: normal radial pulses, normal dorsalis pedis pul Vascular exam: PRESENT: normal capillary refill. ABSENT: pallor GI/Abdominal exam: PRESENT: normal bowel sounds, soft Rectal exam: PRESENT: deferred Extremities exam: ABSENT: joint swelling, pedal edema Musculoskeletal exam: ABSENT: deformity, dislocation Neurological exam: PRESENT: alert, oriented to person, oriented to place, oriented to time, oriented to situation, CN II-XII grossly intact. ABSENT: motor sensory deficit Psychiatric exam: PRESENT: appropriate affect, normal mood Skin exam: PRESENT: abrasion - With local ecchymosis left lateral posterior thorax., dry, intact, warm. ABSENT: jaundice, rash, urticaria Results Laboratory Results: 03/19/20 23:45 03/19/20 23:45 03/19/20 03/19/20 03/19/20 23:45 23:45 23:45 WBC 17.2 H RBC 5.42 Hgb 15.7 Hct 44.5 MCV 82 MCH 28.9 MCHC 35.2 RDW 15.6 H Plt Count 213 Seg Neutrophils % 81.5 H VBG pH 7.35 VBG pCO2 58.7 VBG HCO3 31.3 VBG Base Excess 3.7 Sodium 133.0 L Potassium 4.6 Chloride 97 L Carbon Dioxide 29 Anion Gap 7 BUN 13 Creatinine 0.74 Est GFR ( Amer) > 60 Glucose 114 H Lactic Acid Calcium 8.9 Total Bilirubin 1.3 AST 35 Alkaline Phosphatase 68 Total Protein 7.6 Albumin 4.1 03/19/20 23:45 WBC RBC Hgb Hct MCV MCH MCHC RDW Plt Count Seg Neutrophils % VBG pH VBG pCO2 VBG HCO3 VBG Base Excess Sodium Potassium Chloride Carbon Dioxide Anion Gap BUN Creatinine Est GFR ( Amer) Glucose Lactic Acid 0.9 Calcium Total Bilirubin AST Alkaline Phosphatase Total Protein Albumin 03/19/20 23:45 Troponin I < 0.012 Impressions: Chest X-Ray 03/19/20 23:49 IMPRESSION: Right upper and right lower lobe airspace opacities, worrisome for pneumonia copyright 2011 [employer]- All Rights Reserved Assessment and Plan - Diagnosis (1) Community acquired pneumonia Qualifiers: Laterality: right Lung location: unspecified part of lung Qualified Code(s): J18.9 - Pneumonia, unspecified organism Is this a current diagnosis for this admission?: Yes (2) Acute respiratory failure with hypoxia Is this a current diagnosis for this admission?: Yes (3) Leukocytosis Qualifiers: Leukocytosis type: bandemia Qualified Code(s): D72.825 - Bandemia Is this a current diagnosis for this admission?: Yes (4) Fever Qualifiers: Fever type: unspecified Qualified Code(s): R50.9 - Fever, unspecified Is this a current diagnosis for this admission?: Yes (5) Contusion of chest wall with intact skin Is this a current diagnosis for this admission?: Yes (6) COPD (chronic obstructive pulmonary disease) Qualifiers: COPD type: unspecified COPD Qualified Code(s): J44.9 - Chronic obstructive pulmonary disease, unspecified Is this a current diagnosis for this admission?: Yes (7) Tobacco use disorder, severe, dependence Is this a current diagnosis for this admission?: Yes (8) Polysubstance abuse Is this a current diagnosis for this admission?: Yes (9) IV drug abuse Is this a current diagnosis for this admission?: Yes - Plan Summary Summary: Patient is admitted to the medical floor where he will receive routine supportive and symptomatic cares. He will be treated with aggressive pulmonary toilet utilizing nebulized Xopenex, Atrovent, Pulmicort and Mucomyst. He will receive supplemental oxygen utilizing nasal cannula and if necessary noninvasive airway pressure support devices such as BiPAP or CPAP. He will be treated with IV antibiotics utilizing Rocephin and Zithromax. CBCs, metabolic profiles and magnesium levels will be obtained as needed. Blood cultures are pending. Patient will be continued on his usual medications, as appropriate, when his medication list has been verified and reconciled. Smoking cessation has been advised and counseled briefly at the bedside. A nicotine replacement patch is available for the patient's use, if desired. Patient will use morphine sulfate 2 to 4 mg IV every 2 hours as needed for control of pain and Ativan 1 mg IV every 4 hours as needed for anxiety or restlessness. - Time Time Spent with patient: 15-24 minutes Smoking Cessation Education: 3 to 10 minutes Medications reviewed and adjusted accordingly: Yes Anticipated discharge: Home - Inpatient Certification Based on my medical assessment, after consideration of the patient's comorbidities, presenting symptoms, or acuity I expect that the services needed warrant INPATIENT care.: Yes I certify that my determination is in accordance with my understanding of Medicare's requirements for reasonable and necessary INPATIENT services [42 CFR 412.3e].: Yes Medical Necessity: Need for Nebulizer Therapy and Monitoring of Response, Need for IV Antibiotics, Risk of Complication if Not Cared For in Hospital
[2020-03-20] MEDS: HEPARIN SOD (PORCINE) 5,000 UNIT/ML 1 ML VIAL SUBCUT SCH ×3 (05:10→22:20)
[2020-03-20] MEDS: RINGERS SOLUTION,LACTATED 1,000 ML IV PRN ×2 (05:11→11:20)
[2020-03-20] MEDS: IPRATROPIUM BROMIDE 0.02% NEB 0.5 MG/2.5 ML AMPUL NEB SCH ×2 (07:39→17:49)
[2020-03-20] MEDS: BUDESONIDE NEB 0.5 MG/2 ML AMPUL NEB SCH ×2 (07:39→20:15)
[2020-03-20] MEDS: ACETYLCYSTEINE 20% SOLN 800 MG/4 ML VIAL.NEB NEB SCH ×2 (07:39→20:15)
[2020-03-20] MEDS: LEVALBUTEROL HCL NEB 1.25 MG/3 ML AMPUL NEB SCH ×2 (07:39→17:49)
--- NOTE | 2020-03-20 08:16 | EKG REPORT ---
SEVERITY:- ABNORMAL ECG - SINUS RHYTHM LAD, CONSIDER LEFT ANTERIOR FASCICULAR BLOCK BORDERLINE T WAVE ABNORMALITIES : Confirmed by: Aracelis Yin MD 20-Mar-2020 08:16:02
[2020-03-20 08:59] LABS: APPEARANCE,URINE SLIGHTLY-CLOUDY; BILIRUBIN,URINE NEGATIVE (NEGATIVE); COLOR,URINE YELLOW; GLUCOSE, URINE NEGATIVE (NEGATIVE); KETONES,URINE NEGATIVE (NEGATIVE); PROTEIN,URINE NEGATIVE (NEGATIVE); UROBILINOGEN,URINE NEGATIVE mg/dL (<2.0)
[2020-03-20] MEDS: FAMOTIDINE 20 MG TABLET PO SCH ×2 (09:34→22:21)
[2020-03-20 09:36] LABS: URINE BARBITURATES SCREEN NEGATIVE; URINE BENZODIAZEPINES SCREEN NEGATIVE; URINE COCAINE SCREEN NEGATIVE; URINE MARIJUANA (THC) SCREEN NEGATIVE; URINE METHADONE SCREEN NEGATIVE; URINE PHENCYCLIDINE SCREEN NEGATIVE
--- NOTE | 2020-03-20 12:51 | Progress Note ---
Provider Note Provider Note: 03/20/2020 Provider note as patient was admitted after midnight. Patient is resting comfortably, arouses easily appears to be in no respiratory distress Temperature 98.4 pulse 92 blood pressure 158/77 O2 sats are running low between 86 and 94 on 5 L Plain chest x-ray shows pneumonia in the right upper lobe and right lower lobe Patient is on IV Rocephin and IV Zithromax According to the chart patient has a past medical history of MRSA endocarditis, bronchitis, COPD Patient may need a CT scan of the chest to further define this illness.
[2020-03-20] MEDS: ACETAMINOPHEN 325 MG TABLET PO PRN (17:31)
[2020-03-20] MEDS: CEFTRIAXONE 1 GM/D5W RTU 1 GM/50 ML RTUPB IV SCH (22:22)
[2020-03-20] MEDS: AZITHROMYCIN 500 MG in DEXTROSE 5%-WATER 250 ML IV SCH (23:10)
[2020-03-21] MEDS: IPRATROPIUM BROMIDE 0.02% NEB 0.5 MG/2.5 ML AMPUL NEB SCH ×3 (00:35→15:52)
[2020-03-21] MEDS: LEVALBUTEROL HCL NEB 1.25 MG/3 ML AMPUL NEB SCH ×3 (00:35→15:52)
[2020-03-21] MEDS: HEPARIN SOD (PORCINE) 5,000 UNIT/ML 1 ML VIAL SUBCUT SCH ×3 (05:37→21:27)
[2020-03-21 05:42] LABS: HEMATOCRIT 37.3 % (37.9-51.0); HEMOGLOBIN 13.2 g/dL (13.5-17.0); MEAN CORPUSCULAR HGB CONC 35.3 g/dL (32.0-36.0); MEAN CORPUSCULAR VOLUME 82 fl (80-97); PLATELET COUNT 152 10^3/uL (150-450); RED BLOOD COUNT 4.54 10^6/uL (4.35-5.55); RED CELL DISTRIBUTION WIDTH 15.2 % (11.5-14.0); WHITE BLOOD COUNT 10.5 10^3/uL (4.0-10.5)
[2020-03-21 05:57] LABS: BLOOD UREA NITROGEN 11 mg/dL (7-20); CALCIUM 8.2 mg/dL (8.4-10.2); CARBON DIOXIDE 27 mmol/L (22-30); CHLORIDE 104 mmol/L (98-107); GLUCOSE 92 mg/dL (75-110); POTASSIUM 4.5 mmol/L (3.6-5.0)
[2020-03-21 06:03] LABS: ANION GAP 4 (5-19)
[2020-03-21] MEDS: ACETAMINOPHEN 325 MG TABLET PO PRN (07:57)
[2020-03-21] MEDS: BUDESONIDE NEB 0.5 MG/2 ML AMPUL NEB SCH ×2 (08:56→19:51)
[2020-03-21] MEDS: ACETYLCYSTEINE 20% SOLN 800 MG/4 ML VIAL.NEB NEB SCH ×2 (08:56→19:51)
[2020-03-21] MEDS: FAMOTIDINE 20 MG TABLET PO SCH ×2 (09:20→21:29)
--- NOTE | 2020-03-21 11:46 | PDOC PROGRESS REPORT ---
Subjective Progress Note for:: 03/21/20 Reason For Visit: COMMUNITY ACQUIRED PNEUMONIA 03/21/2020 Fall, pneumonia, shortness of breath, tobacco abuse, COPD, polysubstance abuse Physical Exam Vital Signs: Temp Pulse Resp BP Pulse Ox 98.5 F 87 20 159/81 H 92 03/21/20 06:42 03/21/20 08:55 03/21/20 08:55 03/21/20 06:42 03/21/20 08:55 Intake & Output 03/20/20 03/21/20 03/22/20 06:59 06:59 06:59 Intake Total 2550 2480 300 Output Total 3350 Balance 2550 -870 300 Weight 83.6 kg 83.6 kg General appearance: PRESENT: mild distress Respiratory exam: PRESENT: decreased breath sounds Cardiovascular exam: PRESENT: RRR. ABSENT: diastolic murmur, rubs, systolic murmur Neurological exam: PRESENT: alert, awake, oriented to person, oriented to place, oriented to time, oriented to situation, CN II-XII grossly intact. ABSENT: motor sensory deficit Psychiatric exam: PRESENT: flat affect Results Laboratory Results: 03/21/20 05:09 03/21/20 05:09 03/21/20 03/21/20 05:09 05:09 WBC 10.5 RBC 4.54 Hgb 13.2 L D Hct 37.3 L MCV 82 MCH 29.0 MCHC 35.3 RDW 15.2 H Plt Count 152 Sodium 135.1 L Potassium 4.5 Chloride 104 Carbon Dioxide 27 Anion Gap 4 L BUN 11 Creatinine 0.62 Est GFR ( Amer) > 60 Glucose 92 Calcium 8.2 L 03/19/20 23:45 Troponin I < 0.012 Impressions: Chest X-Ray 03/19/20 23:49 IMPRESSION: Right upper and right lower lobe airspace opacities, worrisome for pneumonia copyright 2011 [employer]- All Rights Reserved Head CT 03/20/20 00:58 IMPRESSION: 1. No acute intracranial findings. Assessment and Plan - Diagnosis (1) Community acquired pneumonia Qualifiers: Laterality: right Lung location: unspecified part of lung Qualified Code(s): J18.9 - Pneumonia, unspecified organism Is this a current diagnosis for this admission?: Yes (2) Contusion of chest wall with intact skin Is this a current diagnosis for this admission?: Yes (3) Pneumonia Qualifiers: Laterality: right Lung location: unspecified part of lung Is this a current diagnosis for this admission?: Yes (4) Polysubstance abuse Is this a current diagnosis for this admission?: Yes (5) COPD (chronic obstructive pulmonary disease) Qualifiers: COPD type: unspecified COPD Qualified Code(s): J44.9 - Chronic obstructive pulmonary disease, unspecified Is this a current diagnosis for this admission?: Yes (6) Tobacco use disorder, severe, dependence Is this a current diagnosis for this admission?: Yes - Plan Summary Summary: Patient is admitted to the medical floor where he will receive routine supportive and symptomatic cares. He will be treated with aggressive pulmonary toilet utilizing nebulized Xopenex, Atrovent, Pulmicort and Mucomyst. He will receive supplemental oxygen utilizing nasal cannula and if necessary noninvasive airway pressure support devices such as BiPAP or CPAP. He will be treated with IV antibiotics utilizing Rocephin and Zithromax. CBCs, metabolic profiles and magnesium levels will be obtained as needed. Blood cultures are pending. Patient will be continued on his usual medications, as appropriate, when his medication list has been verified and reconciled. Smoking cessation has been advised and counseled briefly at the bedside. A nicotine replacement patch is available for the patient's use, if desired. Patient will use morphine sulfate 2 to 4 mg IV every 2 hours as needed for control of pain and Ativan 1 mg IV every 4 hours as needed for anxiety or restlessness. 03/21/2020 Spoke to patient about pain and he states he does not want take anything other than Tylenol since he has a history of substance abuse in the past Vital signs reveal temperature 98.5 pulse of 80 blood pressure 159/81 O2 sat between 90 and 97% on 2 to 4 L nasal cannula Chest x-ray on admission showed a right upper lobe and right lower lobe pneumonia Currently on Rocephin and Zithromax White blood cells on admission 17.2 today 10.5, electrolytes are normal Culture negative for 24 hours urine culture is pending Patient was lying back in a chair beside the bed. If patient should need pain medicine would recommend Toradol IV Will repeat chest x-ray tomorrow morning - Time Time Spent with patient: 25-34 minutes
[2020-03-21] MEDS: KETOROLAC TROMETHAMINE INJ/PF 30 MG/1 ML SDV IV SCH ×2 (12:32→17:15)
[2020-03-21] MEDS: CEFTRIAXONE 1 GM/D5W RTU 1 GM/50 ML RTUPB IV SCH (21:29)
[2020-03-21] MEDS: AZITHROMYCIN 500 MG in DEXTROSE 5%-WATER 250 ML IV SCH (22:55)
[2020-03-22] MEDS: IPRATROPIUM BROMIDE 0.02% NEB 0.5 MG/2.5 ML AMPUL NEB SCH ×2 (00:01→08:11)
[2020-03-22] MEDS: LEVALBUTEROL HCL NEB 1.25 MG/3 ML AMPUL NEB SCH ×2 (00:01→08:11)
[2020-03-22] MEDS: KETOROLAC TROMETHAMINE INJ/PF 30 MG/1 ML SDV IV SCH ×3 (00:32→12:22)
[2020-03-22] MEDS: HEPARIN SOD (PORCINE) 5,000 UNIT/ML 1 ML VIAL SUBCUT SCH (06:03)
[2020-03-22 06:12] LABS: HEMATOCRIT 38.8 % (37.9-51.0); HEMOGLOBIN 13.8 g/dL (13.5-17.0); MEAN CORPUSCULAR HEMOGLOBIN 29.1 pg (27.0-33.4); MEAN CORPUSCULAR HGB CONC 35.4 g/dL (32.0-36.0); MEAN CORPUSCULAR VOLUME 82 fl (80-97); PLATELET COUNT 174 10^3/uL (150-450); RED BLOOD COUNT 4.73 10^6/uL (4.35-5.55); RED CELL DISTRIBUTION WIDTH 15.3 % (11.5-14.0); WHITE BLOOD COUNT 7.1 10^3/uL (4.0-10.5)
[2020-03-22 06:46] LABS: ANION GAP 8 (5-19); BLOOD UREA NITROGEN 17 mg/dL (7-20); CALCIUM 8.5 mg/dL (8.4-10.2); CARBON DIOXIDE 27 mmol/L (22-30); CHLORIDE 103 mmol/L (98-107); GLUCOSE 86 mg/dL (75-110); POTASSIUM 4.5 mmol/L (3.6-5.0)
[2020-03-22] MEDS: ACETYLCYSTEINE 20% SOLN 800 MG/4 ML VIAL.NEB NEB SCH (08:10)
[2020-03-22] MEDS: BUDESONIDE NEB 0.5 MG/2 ML AMPUL NEB SCH (08:11)
[2020-03-22 08:43] VITALS: BP 141/69
[2020-03-22] MEDS: FAMOTIDINE 20 MG TABLET PO SCH (09:13)
--- NOTE | 2020-03-22 09:44 | RADIOLOGY REPORT (SQ) ---
EXAM DESCRIPTION: CHEST 2 VIEWS IMAGES COMPLETED DATE/TIME: 03/22/2020 9:30 am REASON FOR STUDY: Follow-up pneumonia COMPARISON: 03/20/2020 EXAM PARAMETERS: NUMBER OF VIEWS: two views TECHNIQUE: Digital Frontal and Lateral radiographic views of the chest acquired. RADIATION DOSE: NA LIMITATIONS: none FINDINGS: LUNGS AND PLEURA: Improved previously seen right upper and lower lobe opacities. Chronic interstitial changes bilaterally. Blunting of the bilateral costophrenic angles, possibly small effu sions versus pleural thickening. No pneumothorax. MEDIASTINUM AND HILAR STRUCTURES: No masses or contour abnormalities. HEART AND VASCULAR STRUCTURES: Heart normal size. No evidence for failure. BONES: No acute findings. HARDWARE: None in the chest. OTHER: No other significant finding. IMPRESSION: Improved right upper and lower lobe aeration from prior. Emphysematous change. TECHNICAL DOCUMENTATION: JOB ID: [id number] 2010 [employer]- All Rights Reserved Reading location - IP/workstation name: [email or web address]
--- NOTE | 2020-03-22 15:14 | PDOC DISCHARGE SUMMARY ---
Impression - Admit/DC Date/PCP Admission Date/Primary Care Provider: 03/20/20 01:53 CHRISTOPHER CARLISLE MD Discharge Date: 03/22/20 - Discharge Diagnosis (1) Community acquired pneumonia Is this a current diagnosis for this admission?: Yes (2) Contusion of chest wall with intact skin Is this a current diagnosis for this admission?: Yes (3) Pneumonia Is this a current diagnosis for this admission?: Yes (4) Polysubstance abuse Is this a current diagnosis for this admission?: Yes (5) COPD (chronic obstructive pulmonary disease) Is this a current diagnosis for this admission?: Yes (6) Tobacco use disorder, severe, dependence Is this a current diagnosis for this admission?: Yes - Assessment Summary: Patient is admitted to the medical floor where he will receive routine supportive and symptomatic cares. He will be treated with aggressive pulmonary toilet utilizing nebulized Xopenex, Atrovent, Pulmicort and Mucomyst. He will receive supplemental oxygen utilizing nasal cannula and if necessary noninvasive airway pressure support devices such as BiPAP or CPAP. He will be treated with IV antibiotics utilizing Rocephin and Zithromax. CBCs, metabolic profiles and magnesium levels will be obtained as needed. Blood cultures are pending. Patient will be continued on his usual medications, as appropriate, when his medication list has been verified and reconciled. Smoking cessation has been advised and counseled briefly at the bedside. A nicotine replacement patch is available for the patient's use, if desired. Patient will use morphine sulfate 2 to 4 mg IV every 2 hours as needed for control of pain and Ativan 1 mg IV every 4 hours as needed for anxiety or restlessness. 03/21/2020 Spoke to patient about pain and he states he does not want take anything other than Tylenol since he has a history of substance abuse in the past Vital signs reveal temperature 98.5 pulse of 80 blood pressure 159/81 O2 sat between 90 and 97% on 2 to 4 L nasal cannula Chest x-ray on admission showed a right upper lobe and right lower lobe pneumonia Currently on Rocephin and Zithromax White blood cells on admission 17.2 today 10.5, electrolytes are normal Culture negative for 24 hours urine culture is pending Patient was lying back in a chair beside the bed. If patient should need pain medicine would recommend Toradol IV Will repeat chest x-ray tomorrow morning 03/22/2020 Patient is asking to be discharged home today Chest x-ray today shows significant improvement in the right upper and right lower pneumonia. Patient still has changes of emphysema Oxygen saturation according to the nurses 95% on room air Prescription called in for Zithromax 500 mg 6 tablets 1 daily, albuterol inhaler as needed, NicoDerm patches Patient will follow-up with his primary care provider in the next 5 to 7 days. I told the patient he will need another chest x-ray to show resolution of his pneumonia. White blood cell count today is down to 7.1 Patient seems satisfied. - Additional Information Resuscitation Status: Full Code Discharge Diet: As Tolerated Discharge Activity: Activity As Tolerated, No Lifting/Push/Pulling, Walk Frequently Referrals: CHRISTOPHER CARLISLE MD [Primary Care Provider] - 03/29/20 10:00 am Prescriptions: Albuterol Sulfate [Albuterol Sulfate Hfa] 8.5 gm IH Q6HP PRN 14 Days #2 [email or web address] PRN Reason: Nicotine [Nicoderm 21 mg/24 Hr Transderm Patch] 1 each TD DAILYP PRN 30 Days #30 patch.td24 PRN Reason: Azithromycin [Zithromax 250 mg Tablet] 500 mg PO DAILY #6 tab Home Medications: Acetaminophen [Tylenol 325 mg Tablet] 650 mg PO Q4HP PRN tablet 03/22/20 Albuterol Sulfate [Albuterol Sulfate Hfa] 8.5 gm IH Q6HP PRN 14 Days #2 hfa.[email or web address] 03/22/20 Azithromycin [Zithromax 250 mg Tablet] 500 mg PO DAILY #6 tab 03/22/20 Famotidine [Pepcid 20 mg Tablet] 20 mg PO Q12 tablet 03/22/20 Guaifenesin [Robitussin Syrup 200 mg/10 ml Ud Cup] 200 mg PO QIDP PRN udc 03/22/20 Nicotine [Nicoderm 21 mg/24 Hr Transderm Patch] 1 each TD DAILYP PRN 30 Days #30 patch.td24 03/22/20 History of Present Illiness History of Present Illness: JANETH VARGAS is a 64 year old male Physical Exam Vital Signs: Temp Pulse Resp BP Pulse Ox 97.7 F 71 16 141/69 H 95 03/22/20 12:32 03/22/20 12:32 03/22/20 12:32 03/22/20 07:40 03/22/20 12:32 Intake & Output 03/21/20 03/22/20 03/23/20 06:59 06:59 06:59 Intake Total 2480 1180 300 Output Total 3350 900 Balance -870 280 300 Weight 83.6 kg 81.5 kg Results Laboratory Results: WBC 7.1 10^3/uL (4.0-10.5) 03/22/20 05:59 RBC 4.73 10^6/uL (4.35-5.55) 03/22/20 05:59 Hgb 13.8 g/dL (13.5-17.0) 03/22/20 05:59 Hct 38.8 % (37.9-51.0) 03/22/20 05:59 MCV 82 fl (80-97) 03/22/20 05:59 MCH 29.1 pg (27.0-33.4) 03/22/20 05:59 MCHC 35.4 g/dL (32.0-36.0) 03/22/20 05:59 RDW 15.3 % (11.5-14.0) H 03/22/20 05:59 Plt Count 174 10^3/uL (150-450) 03/22/20 05:59 Lymph % (Auto) 12.3 % (13-45) L 03/19/20 23:45 [place] % (Auto) 5.6 % (3-13) 03/19/20 23:45 Eos % (Auto) 0.2 % (0-6) 03/19/20 23:45 Baso % (Auto) 0.4 % (0-2) 03/19/20 23:45 Absolute Neuts (auto) 14.0 10^3/uL (1.7-8.2) H 03/19/20 23:45 Absolute Lymphs (auto) 2.1 10^3/uL (0.5-4.7) 03/19/20 23:45 Absolute Monos (auto) 1.0 10^3/uL (0.1-1.4) 03/19/20 23:45 Absolute Eos (auto) 0.0 10^3/uL (0.0-0.6) 03/19/20 23:45 Absolute Basos (auto) 0.1 10^3/uL (0.0-0.2) 03/19/20 23:45 Seg Neutrophils % 81.5 % (42-78) H 03/19/20 23:45 PT 13.2 SEC (11.4-15.4) 03/19/20 23:45 INR 1.00 03/19/20 23:45 VBG pH 7.35 (7.30-7.42) 03/19/20 23:45 VBG pCO2 58.7 mmHg (35-63) 03/19/20 23:45 VBG HCO3 31.3 mmol/L (20-32) 03/19/20 23:45 VBG Base Excess 3.7 mmol/L 03/19/20 23:45 Sodium 137.5 mmol/L (137-145) 03/22/20 05:59 Potassium 4.5 mmol/L (3.6-5.0) 03/22/20 05:59 Chloride 103 mmol/L (98-107) 03/22/20 05:59 Carbon Dioxide 27 mmol/L (22-30) 03/22/20 05:59 Anion Gap 8 (5-19) 03/22/20 05:59 BUN 17 mg/dL (7-20) 03/22/20 05:59 Creatinine 0.62 mg/dL (0.52-1.25) 03/22/20 05:59 Est GFR ( Amer) > 60 (>60) 03/22/20 05:59 Est GFR (MDRD) Non-Af > 60 (>60) 03/22/20 05:59 Glucose 86 mg/dL (75-110) 03/22/20 05:59 Lactic Acid 0.9 mmol/L (0.7-2.1) 03/20/20 06:14 Calcium 8.5 mg/dL (8.4-10.2) 03/22/20 05:59 Total Bilirubin 1.3 mg/dL (0.2-1.3) 03/19/20 23:45 Direct Bilirubin 0.0 mg/dL (0.0-0.4) 03/19/20 23:45 Neonat Total Bilirubin Not Reportable 03/19/20 23:45 Neonat Direct Bilirubin Not Reportable 03/19/20 23:45 Neonat Indirect Bili Not Reportable 03/19/20 23:45 AST 35 U/L (17-59) 03/19/20 23:45 ALT 34 U/L (<50) 03/19/20 23:45 Alkaline Phosphatase 68 U/L (38-126) 03/19/20 23:45 Troponin I < 0.012 ng/mL 03/19/20 23:45 Total Protein 7.6 g/dL (6.3-8.2) 03/19/20 23:45 Albumin 4.1 g/dL (3.5-5.0) 03/19/20 23:45 Urine Color YELLOW 03/20/20 08:20 Urine Appearance SLIGHTLY-CLOUDY 03/20/20 08:20 Urine pH 5.0 (5.0-9.0) 03/20/20 08:20 Ur Specific [place] 1.020 03/20/20 08:20 Urine Protein NEGATIVE mg/dL (NEGATIVE) 03/20/20 08:20 Urine Glucose (UA) NEGATIVE mg/dL (NEGATIVE) 03/20/20 08:20 Urine Ketones NEGATIVE mg/dL (NEGATIVE) 03/20/20 08:20 Urine Blood NEGATIVE (NEGATIVE) 03/20/20 08:20 Urine Nitrite (Reflex) NEGATIVE (NEGATIVE) 03/20/20 08:20 Urine Bilirubin NEGATIVE (NEGATIVE) 03/20/20 08:20 Urine Urobilinogen NEGATIVE mg/dL (<2.0) 03/20/20 08:20 Leukocyte Esterase Rfl SMALL (NEGATIVE) H 03/20/20 08:20 Urine RBC (Auto) 1 /HPF 03/20/20 08:20 Urine WBC (Reflex) 22 /HPF 03/20/20 08:20 Urine Mucus (Auto) OCC /LPF 03/20/20 08:20 Urine Ascorbic Acid NEGATIVE (NEGATIVE) 03/20/20 08:20 Urine Opiates Screen NEGATIVE 03/20/20 08:20 Urine Methadone Screen NEGATIVE 03/20/20 08:20 Ur Barbiturates Screen NEGATIVE 03/20/20 08:20 Ur Phencyclidine Scrn NEGATIVE 03/20/20 08:20 Ur Amphetamines Screen 03/20/20 08:20 U Benzodiazepines Scrn NEGATIVE 03/20/20 08:20 Urine Cocaine Screen NEGATIVE 03/20/20 08:20 U Marijuana (THC) Screen NEGATIVE 03/20/20 08:20 03/19/20 23:45 Troponin I < 0.012 Impressions: Chest X-Ray 03/19/20 23:49 IMPRESSION: Right upper and right lower lobe airspace opacities, worrisome for pneumonia copyright 2011 [employer]- All Rights Reserved Head CT 03/20/20 00:58 IMPRESSION: 1. No acute intracranial findings. Chest X-Ray 03/22/20 00:00 IMPRESSION: Improved right upper and lower lobe aeration from prior. Emphysematous change. Stroke Is this a Stroke Patient?: No Acute Heart Failure - Is this a Heart Failure Patient?: No
== END 2020-03-22 13:09 | disposition home or self-care (01) | DRG 604 ==
LOC: ER 23:44 → EH 03-20 01:53 → 4W 03-20 03:23
PROVIDERS: ADMIT Emergency Medicine; ATTEND Physician Assistant
DX: S20.219A Contusion of unspecified front wall of thorax, initial encounter (principal); J18.9 Pneumonia, unspecified organism; J96.01 Acute respiratory failure with hypoxia; F19.10 Other psychoactive substance abuse, uncomplicated; F17.210 Nicotine dependence, cigarettes, uncomplicated; J43.9 Emphysema, unspecified; W11.XXXA Fall on and from ladder, initial encounter; I10 Essential (primary) hypertension; Z79.899 Other long term (current) drug therapy; Z86.14 Personal history of Methicillin resistant Staphylococcus aureus infection; Z60.2 Problems related to living alone; Z88.0 Allergy status to penicillin
CPT/HCPCS: 36415; 70450; 71045; 71046; 80048; 80053; 80307; 81001; 82803; 83605; 84484; 85025; 85027; 85610; 87040; 87086; 93005; 93010; 94640; 96361; 96365; 96375; 99285; J0456; J0696; J1644; J1885; J3490; J7030; J7040; J7060; J7120; J7614

== ENCOUNTER 2020-10-06 17:09 | Inpatient (IN) | payer SELFPAY ==
--- NOTE | 2020-10-06 17:39 | ER Document Report ---
ED Medical Screen (RME) - General Chief Complaint: Shortness Of Breath Stated Complaint: BREATHING PROBLEM Time Seen by Provider: 10/06/20 17:27 Primary Care Provider: CHRISTOPHER CARLISLE MD [Primary Care Provider] - Follow up as needed Mode of Arrival: Wheelchair Information source: Patient Notes: 65-year-old male presented to ED for severe shortness of breath. His O2 sat was 83 on 4 L nasal cannula. He states he is severe COPD and does not use oxygen at home he has been sick and getting worse over the last week. He states he has not been in to see anybody. He states he does get breathing treatments. He states he has been having fevers chills body aches at home. The patient was evaluated during the global Covid 19 pandemic, and that diagnosis was suspected/considered upon their initial presentation. Their evaluation, treatment and testing was consistent with current guidelines for patients who present with complaints or symptoms that may be related to Covid 19. I have given Dr[address] Mancia report on this patient I did tell him that I have ordered BiPAP for the patient as well as all the Covid testing. I have greeted and performed a rapid initial assessment of this patient. A comprehensive ED assessment and evaluation of the patient, analysis of test results and completion of medical decision making process will be conducted by an additional ED providers. TRAVEL OUTSIDE OF THE [place] IN LAST 30 DAYS: No - Related Data Allergies/Adverse Reactions: Penicillins Allergy (Verified 04/17/19 09:58) Past Medical History - Past Medical History Cardiac Medical History: Reports: Hx Hypertension Denies: Hx Coronary Artery Disease, Hx Heart Attack Pulmonary Medical History: Reports: Hx Bronchitis, Hx COPD, Hx Respiratory Failure Denies: Hx Asthma, Hx Pneumonia Neurological Medical History: Denies: Hx Cerebrovascular Accident, Hx Seizures Endocrine Medical History: Denies: Hx Diabetes Mellitus Type 1, Hx Diabetes Mellitus Type 2, Hx Hyperthyroidism, Hx Hypothyroidism Renal/ Medical History: Denies: Hx Peritoneal Dialysis GI Medical History: Denies: Hx Cirrhosis, Hx Crohn's Disease, Hx Hepatitis, Hx Ulcerative Colitis Musculoskeltal Medical History: Reports Hx Arthritis, Denies Hx Gout Skin Medical History: Denies Hx Eczema, Denies Hx Psoriasis Psychiatric Medical History: Denies: Hx Depression Infectious Medical History: Reports: Hx MRSA - History of MRSA bacteremia and endocarditis. Denies: Hx Hepatitis Past Surgical History: Reports: Other - Cyst removal - Immunizations Hx Diphtheria, Pertussis, Tetanus Vaccination: Yes Physical Exam - Vital signs Vitals: Temp Pulse Resp BP Pulse Ox 99.7 F 107 H 28 H 163/74 H 81 L 10/06/20 17:22 10/06/20 17:22 10/06/20 17:22 10/06/20 17:22 10/06/20 17:22 Course - Vital Signs Vital signs: Temp Pulse Resp BP Pulse Ox 99.7 F 107 H 28 H 163/74 H 81 L 10/06/20 17:22 10/06/20 17:22 10/06/20 17:22 10/06/20 17:22 10/06/20 17:22 Doctor's Discharge - Discharge Referrals: CHRISTOPHER CARLISLE MD [Primary Care Provider] - Follow up as needed
[2020-10-06 18:09] LABS: ABSOLUTE LYMPHOCYTES (AUTO) 1.3 10^3/uL (0.5-4.7); ABSOLUTE MONOCYTES (AUTO) 1.1 10^3/uL (0.1-1.4); ABSOLUTE NEUT (AUTO) 7.2 10^3/uL (1.7-8.2); BASOPHILS % (AUTO) 0.2 % (0-2); EOSINOPHILS % (AUTO) 0.2 % (0-6); HEMOGLOBIN 15.5 g/dL (13.5-17.0); LYMPHOCYTES % (AUTO) 13.9 % (13-45); MEAN CORPUSCULAR HEMOGLOBIN 29.4 pg (27.0-33.4); MEAN CORPUSCULAR HGB CONC 33.8 g/dL (32.0-36.0); MEAN CORPUSCULAR VOLUME 87 fl (80-97); MONOCYTES % (AUTO) 11.3 % (3-13); PLATELET COUNT 306 10^3/uL (150-450); RED BLOOD COUNT 5.29 10^6/uL (4.35-5.55); RED CELL DISTRIBUTION WIDTH 14.2 % (11.5-14.0); SEGMENTED NEUTROPHILS % (AUTO) 74.4 % (42-78); TOTAL CELLS COUNTED % (AUTO) 100 %; WHITE BLOOD COUNT 9.7 10^3/uL (4.0-10.5)
--- NOTE | 2020-10-06 18:20 | RADIOLOGY REPORT (SQ) ---
EXAM DESCRIPTION: CHEST SINGLE VIEW IMAGES COMPLETED DATE/TIME: 10/06/2020 5:54 pm REASON FOR STUDY: Short of breath O2 sat 83 on 4 L COMPARISON: 03/22/2020 EXAM PARAMETERS: NUMBER OF VIEWS: One view. TECHNIQUE: Single frontal radiographic view of the chest acquired. RADIATION DOSE: NA LIMITATIONS: None. FINDINGS: LUNGS AND PLEURA: Multifocal airspace opacities are seen of the right mid and lower lung. No pleural effusion or pneumothorax. Background of emphysematous changes. MEDIASTINUM AND HILAR STRUCTURES: No masses. Contour normal. HEART AND VASCULAR STRUCTURES: Cardiomegaly without central vascular congestion. BONES: No acute findings. HARDWARE: None in the chest. OTHER: No other significant finding. IMPRESSION: In the appropriate clinical setting, findings are consistent with multi lobar pneumonia. This is seen on a background of chronic emphysematous changes. TECHNICAL DOCUMENTATION: JOB ID: [id number] 2010 [email or web address]- All Rights Reserved Reading location - IP/workstation name: [email or web address]
[2020-10-06] MEDS ORDERED: IPRATROPIUM/ALBUTEROL 0.5-2.5 MG/3 ML AMPUL NEB ONE (18:21)
[2020-10-06] MEDS ORDERED: METHYLPREDNISOLONE INJ 125 MG/2 ML SDV IV ONE (18:21)
[2020-10-06 18:24] LABS: ARTERIAL BLOOD BASE EXCESS 2.7 mmol/L; ARTERIAL BLOOD H2CO3 1.63 mmol/L (1.05-1.35); ARTERIAL BLOOD HCO3 29.8 mmol/L (20-24); ARTERIAL BLOOD O2 SATURATION 98.7 % (94-98); ARTERIAL BLOOD PCO2 54.3 mmHg (35-45); ARTERIAL BLOOD PH 7.36 (7.35-7.45); ARTERIAL BLOOD PO2 145.9 mmHg (80-100); ARTERIAL BLOOD TOTAL CO2 31.4 mmol/L (23-27)
--- NOTE | 2020-10-06 18:24 | ER Document Report ---
ED Respiratory Problem - General Chief Complaint: Shortness Of Breath Stated Complaint: BREATHING PROBLEM Time Seen by Provider: 10/06/20 17:27 Mode of Arrival: Wheelchair Information source: Patient Notes: 65-year-old man presenting to the emergency department with a complaint of shortness of breath and fever. He has a history of COPD and is a smoker. He uses an inhaler. States that he has had worsening shortness of breath and breathing since last night. He denies a known exposure to the coronavirus. He has a cough which is productive of a yellowish-brown sputum. He denies chest p ain. In the triage area on 4 L nasal cannula his O2 sat was 87% patient was brought back to the emergency department immediately and placed on BiPAP. TRAVEL OUTSIDE OF THE [place] IN LAST 30 DAYS: No - Related Data Allergies/Adverse Reactions: Penicillins Allergy (Verified 04/17/19 09:58) Past Medical History - General Information source: Patient - Social History Smoking Status: Current Every Day Smoker Family History: CAD, Hypertension. denies: DM, Malignancy - Past Medical History Cardiac Medical History: Reports: Hx Hypertension Denies: Hx Coronary Artery Disease, Hx Heart Attack Pulmonary Medical History: Reports: Hx Bronchitis, Hx COPD, Hx Respiratory Failure Denies: Hx Asthma, Hx Pneumonia Neurological Medical History: Denies: Hx Cerebrovascular Accident, Hx Seizures Endocrine Medical History: Denies: Hx Diabetes Mellitus Type 1, Hx Diabetes Mellitus Type 2, Hx Hyperthyroidism, Hx Hypothyroidism Renal/ Medical History: Denies: Hx Peritoneal Dialysis GI Medical History: Denies: Hx Cirrhosis, Hx Crohn's Disease, Hx Hepatitis, Hx Ulcerative Colitis Musculoskeletal Medical History: Reports Hx Arthritis, Denies Hx Gout Skin Medical History: Denies Hx Eczema, Denies Hx Psoriasis Psychiatric Medical History: Denies: Hx Depression Infectious Medical History: Reports: Hx MRSA - History of MRSA bacteremia and en docarditis. Denies: Hx Hepatitis Past Surgical History: Reports: Other - Cyst removal - Immunizations Hx Diphtheria, Pertussis, Tetanus Vaccination: Yes Review of Systems - Review of Systems Notes: Constitutional + fever. HENT: Negative for sore throat. Eyes: Negative for visual changes. Cardiovascular: Negative for chest pain. Respiratory: + Shortness of breath Gastrointestinal: Negative for abdominal pain, vomiting or diarrhea. Genitourinary: Negative for dysuria. Musculoskeletal: Negative for back pain. Skin: Negative for rash. Neurological: Negative for headaches, weakness or numbness. 10 point ROS negative except as marked above and in HPI. Physical Exam - Vital signs Vitals: Temp Pulse Resp BP Pulse Ox 99.7 F 107 H 28 H 163/74 H 81 L 10/06/20 17:22 10/06/20 17:22 10/06/20 17:22 10/06/20 17:22 10/06/20 17:22 - Notes Notes: PHYSICAL EXAMINATION: Physical Exam: General: Chronically ill-appearing 65-year-old man in mild distress secondary to shortness of breath. HEENT: NC/AT, pupils equal round and reactive to light, MM moist,nares clear, oropharynx clear, airway patent Neck: supple, no adenopathy, no masses. Good range of motion Lungs: Bilateral wheezing CVS: Regular rate and rhythm no murmur gallop or rub Abdomen: Soft, active, nontender, no masses, no hepatosplenomegaly Ext: No edema, clubbing or cyanosis. Neuro: Alert and responsive, moving all 4 extremities on command, cranial nerves intact, no focal findings Skin: Intact no open lesions, no rash Course - Re-evaluation Re-evalutation: 10/06/20 20:03 I have discussed with with the hospitalist, Dr. Adams he would like to trial the patient off of BiPAP. Patient was given duo nebs x3, Solu-Medrol 125 mg IV and Tamiflu 75 mg. He was tested for coronavirus and has been made PUI. Blood cultures were ordered and the patient is ordered to get Rocephin and Zithromax treatment for community-acquired pneumonia. He will be admitted for further evaluation and management. - Vital Signs Vital signs: Temp Pulse Resp BP Pulse Ox 97.6 F 107 H 23 H 140/83 H 93 10/07/20 01:01 10/06/20 17:22 10/07/20 06:01 10/07/20 06:00 10/07/20 06:01 - Laboratory Result Diagrams: 10/06/20 17:40 10/06/20 17:40 Laboratory results interpreted by me: 10/06/20 10/06/20 10/06/20 17:40 17:40 17:54 RDW 14.2 H Carbonic Acid 1.63 H ABG pCO2 54.3 H ABG pO2 145.9 H ABG HCO3 29.8 H ABG Total CO2 31.4 H ABG O2 Saturation 98.7 H Chloride 95 L Carbon Dioxide 35 H Glucose 162 H AST 61 H ALT 82 H - Diagnostic Test Radiology reviewed: Image reviewed, Reports reviewed Radiology results interpreted by me: 10/06/20 19:51 Chest X-Ray 10/06/20 17:36 IMPRESSION: In the appropriate clinical setting, findings are consistent with multi lobar pneumonia. This is seen on a background of chronic emphysematous changes. Critical Care Note - Critical Care Note Total time excluding time spent on procedures (mins): 45 - Critical care time is life-saving interventions to treat hypoxic respiratory failure. The administration of BiPAP and the monitoring of response as well as amending the patient to the IMCU. Discharge - Discharge Clinical Impression: COPD exacerbation, Influenza A Pneumonia Qualifiers: Pneumonia type: due to unspecified organism Laterality: bilateral Lung location: unspecified part of lung Qualified Code(s): J18.9 - Pneumonia, unspecified organism Community acquired pneumonia Qualifiers: Laterality: unspecified laterality Qualified Code(s): J18.9 - Pneumonia, unspecified organism Condition: Fair Disposition: ADMITTED INPATIENT Admitting Provider: Angie (Hospitalist) Unit Admitted: [facility]
[2020-10-06 18:25] LABS: ARTERIAL BLOOD FIO2 70%
[2020-10-06 18:28] LABS: A TYPE INFLUENZA AG POSITIVE (NEGATIVE); B INFLUENZA AG NEGATIVE (NEGATIVE)
[2020-10-06 18:29] LABS: ALBUMIN 3.8 g/dL (3.5-5.0); ALKALINE PHOSPHATASE 91 U/L (38-126); ANION GAP 9 (5-19); ASPARTATE AMINO TRANSFERASE 61 U/L (17-59); BILIRUBIN,DIRECT 0.2 mg/dL (0.0-0.4); BILIRUBIN,TOTAL 0.5 mg/dL (0.2-1.3); BLOOD UREA NITROGEN 11 mg/dL (7-20); CARBON DIOXIDE 35 mmol/L (22-30); CHLORIDE 95 mmol/L (98-107); GLUCOSE 162 mg/dL (75-110); POTASSIUM 4.1 mmol/L (3.6-5.0); TOTAL PROTEIN 7.4 g/dL (6.3-8.2)
[2020-10-06] MEDS ORDERED: CEFTRIAXONE INJ 1000 MG VIAL IV ONE (19:52)
[2020-10-06] MEDS ORDERED: AZITHROMYCIN INJ 500 MG VIAL IV ONE (19:54)
[2020-10-06] MEDS ORDERED: OSELTAMIVIR PHOSPHATE 75 MG CAPSULE PO ONE (19:55)
[2020-10-06] MEDS ORDERED: ONDANSETRON HCL INJ/PF 4 MG/2 ML SDV IV PRN (20:38)
[2020-10-06] MEDS ORDERED: ACETAMINOPHEN 325 MG TABLET PO PRN (20:38)
[2020-10-06] MEDS ORDERED: MAG HYDROX/AL HYDROX/SIMETH SUSP 30 ML UDCUP PO PRN (20:38)
[2020-10-06] MEDS ORDERED: ALBUTEROL SULFATE HFA (90 MCG/PUFF) 8 GM MDI IH PRN (20:47)
--- NOTE | 2020-10-06 21:01 | PDOC H&P ---
History of Present Illness Admission Date/PCP: 10/06/20 20:18 CHRISTOPEHR CARLISLE MD Patient complains of: sob, cough History of Present Illness: JANETH VARGAS is a 65 year old male with history of COPD not on home oxygen, distant history of endocarditis over 5 years ago, who presents to the hospital with complaints of worsening cough and shortness of breath for the past few days. He has also been having muscle aches. He endorses some rhinorrhea and nasal congestion which seem to be resolving at this point. However he shortness of breath progressed prompting his evaluation in the ER. On presentation he was noted to be significantly hypoxic at 81% on room air. He was subsequently placed on 4 L nasal cannula with SPO2 still in the mid 80s and then placed on BiPAP. At time of encounter, patient appears comfortable and ambulating in the room. He denies any sick contacts. He denies any fevers. Does admit to fatigue. The only medication he takes his albuterol inhaler and nasal spray. Past Medical History Cardiac Medical History: Reports: Hypertension Denies: Coronary Artery Disease, Myocardial Infarction Pulmonary Medical History: Reports: Bronchitis, Chronic Obstructive Pulmonary Disease (COPD), Respiratory Failure Denies: Asthma, Pneumonia Neurological Medical History: Denies: Seizures Endocrine Medical History: Denies: Diabetes Mellitus Type 1, Diabetes Mellitus Type 2, Hyperthyroidism, Hypothyroidism GI Medical History: Denies: Cirrhosis, Crohn's Disease, Hepatitis, Ulcerative Colitis Musculoskeltal Medical History: Reports: Arthritis Denies: Gout Skin Medical History: Denies: Eczema, Psoriasis Psychiatric Medical History: Denies: Depression Hematology: Denies: Anemia, Bleeding Tendencies Infectious Medical History: 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 denies: DM, Malignancy Parental Family History Reviewed: Yes Children Family History Reviewed: Yes Sibling(s) Family History Reviewed.: Yes Medication/Allergy Home Medications: Acetaminophen [Tylenol 325 mg Tablet] 650 mg PO Q4HP PRN tablet 03/22/20 Albuterol Sulfate [Albuterol Sulfate Hfa] 8.5 gm IH Q6HP PRN 14 Days #2 [email or web address] 03/22/20 Azithromycin [Zithromax 250 mg Tablet] 500 mg PO DAILY #6 tab 03/22/20 Famotidine [Pepcid 20 mg Tablet] 20 mg PO Q12 tablet 03/22/20 Guaifenesin [Robitussin Syrup 200 mg/10 ml Ud Cup] 200 mg PO QIDP PRN udc 03/22/20 Nicotine [Nicoderm 21 mg/24 Hr Transderm Patch] 1 each TD DAILYP PRN 30 Days #30 patch.[email or web address] 03/22/20 Allergies/Adverse Reactions: Penicillins Allergy (Verified 04/17/19 09:58) Review of Systems Constitutional: PRESENT: fatigue. ABSENT: fever(s) Eyes: ABSENT: visual disturbances Ears: ABSENT: hearing changes Nose, Mouth, and Throat: ABSENT: headache(s) Cardiovascular: ABSENT: chest pain, orthropnea Respiratory: PRESENT: cough, dyspnea Gastrointestinal: ABSENT: diarrhea, nausea, vomiting Genitourinary: ABSENT: dysuria Musculoskeletal: PRESENT: other - Muscle aches Integumentary: ABSENT: diaphoresis Neurological: ABSENT: dizziness Psychiatric: ABSENT: anxiety Endocrine: ABSENT: polyuria Hematologic/Lymphatic: ABSENT: easy bleeding Physical Exam Vital Signs: Temp Pulse Resp BP Pulse Ox 99.7 F 107 H 26 H 165/94 H 96 10/06/20 17:22 10/06/20 17:22 10/06/20 19:01 10/06/20 19:01 10/06/20 19:01 Intake & Output 10/05/20 10/06/20 10/07/20 06:59 06:59 06:59 Weight 81.5 kg General appearance: PRESENT: no acute distress, cooperative Eye exam: PRESENT: EOMI Neck exam: ABSENT: tracheal deviation Respiratory exam: PRESENT: crackles - Mild in lower lobe, prolonged expiratory phas, rhonchi - Mild, symmetrical, unlabored. ABSENT: accessory muscle use, retraction, tachypnea, wheezes Cardiovascular exam: PRESENT: RRR, +S1, +S2. ABSENT: tachycardia GI/Abdominal exam: PRESENT: soft. ABSENT: rebound, rigid, tenderness Extremities exam: ABSENT: pedal edema Musculoskeletal exam: PRESENT: ambulatory Neurological exam: PRESENT: alert, awake, oriented to person, oriented to place, oriented to time, oriented to situation Psychiatric exam: PRESENT: appropriate affect. ABSENT: agitated, anxious Focused psych exam: ABSENT: pressured speech Skin exam: ABSENT: jaundice Results Laboratory Results: 10/06/20 17:40 10/06/20 17:40 10/06/20 10/06/20 10/06/20 17:40 17:40 17:54 WBC 9.7 RBC 5.29 Hgb 15.5 Hct 46.0 MCV 87 MCH 29.4 MCHC 33.8 RDW 14.2 H Plt Count 306 Seg Neutrophils % 74.4 Carbonic Acid 1.63 H HCO3/H2CO3 Ratio 18:1 ABG pH 7.36 ABG pCO2 54.3 H ABG pO2 145.9 H ABG HCO3 29.8 H ABG O2 Saturation 98.7 H ABG Base Excess 2.7 FiO2 70% Sodium 139.4 Potassium 4.1 Chloride 95 L Carbon Dioxide 35 H Anion Gap 9 BUN 11 Creatinine 0.63 Est GFR ( Amer) > 60 Glucose 162 H Calcium 9.0 Total Bilirubin 0.5 AST 61 H Alkaline Phosphatase 91 Total Protein 7.4 Albumin 3.8 10/06/20 17:40 Troponin I < 0.012 Impressions: Chest X-Ray 10/06/20 17:36 IMPRESSION: In the appropriate clinical setting, findings are consistent with multi lobar pneumonia. This is seen on a background of chronic emphysematous changes. Assessment and Plan - Diagnosis (1) Influenza A with pneumonia Is this a current diagnosis for this admission?: Yes Plan: Chest x-ray reviewed showing multifocal pneumonia. Appears atypical in nature. Tested positive for influenza A. Start on Tamiflu Tested for COVID-19 as well Blood cultures and sputum cultures. (2) Acute respiratory failure with hypoxia and hypercapnia Is this a current diagnosis for this admission?: Yes Plan: Noted to be hypoxic on 4 L and transitioned right to BiPAP. On exam and after assessing his blood gas, does not require BiPAP at this time he is not having any work of breathing and mentating very well. Mild hypercapnia noted on blood gas. We will take him off BiPAP and put him on a Ventimask and possibly even de- escalate back to nasal cannula if tolerated. Goal SPO2 88 to 92% (3) COPD exacerbation Is this a current diagnosis for this admission?: Yes Plan: Received steroids and nebulizer treatment in the ER. We will continue duo nebs, Solu-Medrol and placed on azithromycin. Will monitor. (4) Transaminitis Is this a current diagnosis for this admission?: Yes Plan: Mild likely secondary to viral infection. Will monitor. (5) Tobacco abuse Is this a current diagnosis for this admission?: Yes Plan: Nicotine patch provided - Time Time Spent with patient: 35 or more minutes Anticipated Discharge Disposition: Home, Self Care Anticipated Discharge Timeframe: within 72 hours
[2020-10-06] MEDS ORDERED: ASCORBIC ACID 500 MG TABLET PO ONE (22:00)
[2020-10-06] MEDS ORDERED: AZITHROMYCIN 250 MG in DEXTROSE 5%-WATER 250 ML IV SCH (22:00)
--- NOTE | 2020-10-06 23:57 | EKG REPORT ---
SEVERITY:- OTHERWISE NORMAL ECG - SINUS TACHYCARDIA LEFT AXIS DEVIATION : Confirmed by: Donna Drew 06-Oct-2020 23:56:50
[2020-10-07] MEDS: IPRATROPIUM/ALBUTEROL 0.5-2.5 MG/3 ML AMPUL NEB SCH ×4 (02:10→20:47)
[2020-10-07 06:21] LABS: ALBUMIN 3.2 g/dL (3.5-5.0); ALKALINE PHOSPHATASE 80 U/L (38-126); ANION GAP 7 (5-19); ASPARTATE AMINO TRANSFERASE 43 U/L (17-59); BILIRUBIN,DIRECT 0.2 mg/dL (0.0-0.4); BILIRUBIN,TOTAL 0.4 mg/dL (0.2-1.3); BLOOD UREA NITROGEN 16 mg/dL (7-20); CARBON DIOXIDE 34 mmol/L (22-30); CHLORIDE 99 mmol/L (98-107); GLUCOSE 290 mg/dL (75-110); PHOSPHORUS 3.3 mg/dL (2.5-4.5); POTASSIUM 4.8 mmol/L (3.6-5.0); TOTAL PROTEIN 6.4 g/dL (6.3-8.2)
[2020-10-07 06:28] LABS: ABSOLUTE LYMPHOCYTES (AUTO) 0.8 10^3/uL (0.5-4.7); ABSOLUTE MONOCYTES (AUTO) 0.2 10^3/uL (0.1-1.4); ABSOLUTE NEUT (AUTO) 6.8 10^3/uL (1.7-8.2); BASOPHILS % (AUTO) 0.1 % (0-2); HEMATOCRIT 41.2 % (37.9-51.0); HEMOGLOBIN 14.2 g/dL (13.5-17.0); LYMPHOCYTES % (AUTO) 9.9 % (13-45); MEAN CORPUSCULAR HEMOGLOBIN 29.8 pg (27.0-33.4); MEAN CORPUSCULAR HGB CONC 34.5 g/dL (32.0-36.0); MEAN CORPUSCULAR VOLUME 86 fl (80-97); MONOCYTES % (AUTO) 2.6 % (3-13); PLATELET COUNT 253 10^3/uL (150-450); RED BLOOD COUNT 4.78 10^6/uL (4.35-5.55); SEGMENTED NEUTROPHILS % (AUTO) 87.4 % (42-78); TOTAL CELLS COUNTED % (AUTO) 100 %; WHITE BLOOD COUNT 7.8 10^3/uL (4.0-10.5)
[2020-10-07] MEDS: CHLORTHALIDONE 25 MG TABLET PO SCH (08:07)
[2020-10-07] MEDS: OSELTAMIVIR PHOSPHATE 75 MG CAPSULE PO SCH ×2 (10:13→18:50)
[2020-10-07] MEDS: ZINC SULFATE 220 MG CAPSULE PO SCH (10:13)
[2020-10-07] MEDS: NICOTINE 7 MG/24 HR PATCH.TD24 TD SCH (10:13)
[2020-10-07] MEDS: ENOXAPARIN SODIUM INJ 40 MG/0.4 ML DISP.SYRIN SUBCUT SCH (10:13)
[2020-10-07] MEDS: CHOLECALCIFEROL (D3) 1,000 UNIT (25 MCG) TABLET PO SCH (10:13)
[2020-10-07] MEDS: METHYLPREDNISOLONE INJ 40 MG/1 ML SDV IV SCH ×2 (10:13→21:22)
[2020-10-07] MEDS: ASCORBIC ACID 500 MG TABLET PO SCH ×2 (10:13→18:50)
--- NOTE | 2020-10-07 15:41 | PDOC PROGRESS REPORT ---
Subjective Date:: 10/07/20 Subjective:: The patient reports he is feeling slightly better but still feels quite uncomfortable. He is slouched down in the gurney in the emergency department. Continues on nasal cannula oxygen. Reason For Visit: PNEUMONIA,INFLUENZA Physical Exam Vital Signs: Temp Pulse Resp BP Pulse Ox 97.6 F 107 H 22 H 152/86 H 96 10/07/20 01:01 10/06/20 17:22 10/07/20 15:01 10/07/20 15:00 10/07/20 15:01 Intake & Output 10/06/20 10/07/20 10/08/20 06:59 06:59 06:59 Weight 81.5 kg General appearance: PRESENT: disheveled, mild distress, well-developed Head exam: PRESENT: atraumatic, normocephalic Ear exam: PRESENT: normal external ear exam. ABSENT: bleeding, drainage Mouth exam: PRESENT: moist, tongue midline Respiratory exam: PRESENT: decreased breath sounds, rhonchi - Right lower lung field, symmetrical, tachypnea. ABSENT: wheezes Cardiovascular exam: PRESENT: RRR, +S1, +S2 GI/Abdominal exam: PRESENT: normal bowel sounds, soft. ABSENT: tenderness Rectal exam: PRESENT: deferred Gentrourinary exam: ABSENT: indwelling catheter Extremities exam: ABSENT: pedal edema Neurological exam: PRESENT: alert, awake, oriented to person, oriented to place, oriented to time, oriented to situation, CN II-XII grossly intact. ABSENT: altered Psychiatric exam: PRESENT: appropriate affect - Affect reflects his current illness. ABSENT: agitated, anxious Focused psych exam: ABSENT: delusional, paranoid, restlessness Results Laboratory Results: 10/07/20 04:31 10/07/20 04:31 10/06/20 10/06/20 10/06/20 17:40 17:40 17:54 WBC 9.7 RBC 5.29 Hgb 15.5 Hct 46.0 MCV 87 MCH 29.4 MCHC 33.8 RDW 14.2 H Plt Count 306 Seg Neutrophils % 74.4 Carbonic Acid 1.63 H HCO3/H2CO3 Ratio 18:1 ABG pH 7.36 ABG pCO2 54.3 H ABG pO2 145.9 H ABG HCO3 29.8 H ABG O2 Saturation 98.7 H ABG Base Excess 2.7 FiO2 70% Sodium 139.4 Potassium 4.1 Chloride 95 L Carbon Dioxide 35 H Anion Gap 9 BUN 11 Creatinine 0.63 Est GFR ( Amer) > 60 Glucose 162 H Calcium 9.0 Phosphorus Magnesium Total Bilirubin 0.5 AST 61 H Alkaline Phosphatase 91 Total Protein 7.4 Albumin 3.8 10/07/20 10/07/20 04:31 04:31 WBC 7.8 RBC 4.78 Hgb 14.2 Hct 41.2 MCV 86 MCH 29.8 MCHC 34.5 RDW 14.0 Plt Count 253 Seg Neutrophils % 87.4 H Carbonic Acid HCO3/H2CO3 Ratio ABG pH ABG pCO2 ABG pO2 ABG HCO3 ABG O2 Saturation ABG Base Excess FiO2 Sodium 139.8 Potassium 4.8 Chloride 99 Carbon Dioxide 34 H Anion Gap 7 BUN 16 Creatinine 0.61 Est GFR ( Amer) > 60 Glucose 290 H Calcium 9.0 Phosphorus 3.3 Magnesium 2.3 Total Bilirubin 0.4 AST 43 Alkaline Phosphatase 80 Total Protein 6.4 Albumin 3.2 L 10/06/20 17:40 Troponin I < 0.012 Impressions: Chest X-Ray 10/06/20 17:36 IMPRESSION: In the appropriate clinical setting, findings are consistent with multi lobar pneumonia. This is seen on a background of chronic emphysematous changes. Assessment and Plan - Diagnosis (1) Influenza A with pneumonia Is this a current diagnosis for this admission?: Yes Plan: Chest x-ray reviewed showing multifocal pneumonia. Appears atypical in nature. Tested positive for influenza A. Start on Tamiflu Tested for COVID-19 as well Blood cultures and sputum cultures. (2) Acute respiratory failure with hypoxia and hypercapnia Is this a current diagnosis for this admission?: Yes Plan: Noted to be hypoxic on 4 L and transitioned right to BiPAP. On exam and after assessing his blood gas, does not require BiPAP at this time he is not having any work of breathing and mentating very well. Mild hypercapnia noted on blood gas. We will take him off BiPAP and put him on a Ventimask and possibly even de- escalate back to nasal cannula if tolerated. Goal SPO2 88 to 92% (3) COPD exacerbation Is this a current diagnosis for this admission?: Yes Plan: Received steroids and nebulizer treatment in the ER. We will continue duo nebs, Solu-Medrol and placed on azithromycin. Will monitor. (4) Transaminitis Is this a current diagnosis for this admission?: Yes Plan: Mild likely secondary to viral infection. Will monitor. (5) Tobacco abuse Is this a current diagnosis for this admission?: Yes Plan: Nicotine patch provided - Plan Summary Summary: (1) Influenza A with pneumonia Is this a current diagnosis for this admission?: Yes Plan: Chest x-ray reviewed showing multifocal pneumonia. Appears atypical in nature. Tested positive for influenza A. Start on Tamiflu Tested for COVID-19 as well Blood cultures and sputum cultures. (2) Acute respiratory failure with hypoxia and hypercapnia Is this a current diagnosis for this admission?: Yes Plan: Noted to be hypoxic on 4 L and transitioned right to BiPAP. On exam and after assessing his blood gas, does not require BiPAP at this time he is not having any work of breathing and mentating very well. Mild hypercapnia noted on blood gas. We will take him off BiPAP and put him on a Ventimask and possibly even de- escalate back to nasal cannula if tolerated. Goal SPO2 88 to 92% (3) COPD exacerbation Is this a current diagnosis for this admission?: Yes Plan: Received steroids and nebulizer treatment in the ER. We will continue duo nebs, Solu-Medrol and placed on azithromycin. Will monitor. (4) Transaminitis Is this a current diagnosis for this admission?: Yes Plan: Mild likely secondary to viral infection. Will monitor. (5) Tobacco abuse Is this a current diagnosis for this admission?: Yes Plan: Nicotine patch provided 10/07/2020 Patient is still exhibiting increased work of breathing. Despite positive influenza test he is being tested for COVID-19. Continue Tamiflu. Ceftriaxone and azithromycin as well as supplements until Covid serology returns. If negative then discontinue antibiotic therapy unless suspicion of bacterial pneumonia. Respiratory failure-continue oxygen supplementation. Taper to room air as tolerated. Maintain saturation 88 to 92% COPD exacerbation treated with IV steroids, nebulizers and antibiotics/antiviral therapy as above Continue nicotine patch Monitor transaminases. - Time Time Spent with patient: 15-24 minutes Smoking Cessation Education: 3 to 10 minutes Medications reviewed and adjusted accordingly: Yes Anticipated Discharge Disposition: Home, Self Care Anticipated Discharge Timeframe: 3 to 4 day
[2020-10-07] MEDS ORDERED: AZITHROMYCIN INJ 500 MG VIAL IV SCH (18:00)
[2020-10-07] MEDS: AZITHROMYCIN 250 MG in DEXTROSE 5%-WATER 250 ML IV SCH (21:21)
[2020-10-07] MEDS ORDERED: AZITHROMYCIN 250 MG in DEXTROSE 5%-WATER 250 ML IV SCH (22:00)
[2020-10-08] MEDS: IPRATROPIUM/ALBUTEROL 0.5-2.5 MG/3 ML AMPUL NEB SCH ×4 (02:12→21:14)
[2020-10-08] MEDS ORDERED: INFLUENZA QUAD (6MOS+) 2020-21 VAC 0.5 ML SYR IM ONE (08:00)
--- NOTE | 2020-10-08 08:40 | EKG REPORT ---
SEVERITY:- OTHERWISE NORMAL ECG - SINUS TACHYCARDIA LEFT AXIS DEVIATION : Confirmed on behalf of: Donna Drew 08-Oct-2020 08:39:19
[2020-10-08] MEDS: CHLORTHALIDONE 25 MG TABLET PO SCH (08:54)
[2020-10-08] MEDS: NICOTINE 7 MG/24 HR PATCH.TD24 TD SCH (08:59)
[2020-10-08] MEDS: OSELTAMIVIR PHOSPHATE 75 MG CAPSULE PO SCH ×2 (08:59→16:59)
[2020-10-08] MEDS: ENOXAPARIN SODIUM INJ 40 MG/0.4 ML DISP.SYRIN SUBCUT SCH (08:59)
[2020-10-08] MEDS: ZINC SULFATE 220 MG CAPSULE PO SCH (08:59)
[2020-10-08] MEDS: CHOLECALCIFEROL (D3) 1,000 UNIT (25 MCG) TABLET PO SCH (08:59)
[2020-10-08] MEDS: FLUTICASONE NASAL SPRAY 50 MCG/SPRY 120 SPRAY/16 GM NASL SCH (08:59)
[2020-10-08] MEDS: METHYLPREDNISOLONE INJ 40 MG/1 ML SDV IV SCH ×2 (08:59→21:47)
[2020-10-08] MEDS: ASCORBIC ACID 500 MG TABLET PO SCH ×2 (08:59→16:59)
--- NOTE | 2020-10-08 17:03 | PDOC PROGRESS REPORT ---
Subjective Date:: 10/08/20 Subjective:: Feeling slightly better. Still requiring oxygen supplementation. Still with co ugh. Reason For Visit: PNEUMONIA,INFLUENZA Physical Exam Vital Signs: Temp Pulse Resp BP Pulse Ox 97.9 F 95 16 148/80 H 97 10/08/20 15:20 10/08/20 15:20 10/08/20 15:20 10/08/20 15:20 10/08/20 15:20 Intake & Output 10/07/20 10/08/20 10/09/20 06:59 06:59 06:59 Intake Total 620 510 Balance 620 510 Weight 81.5 kg 84.7 kg General appearance: PRESENT: cooperative, disheveled, mild distress, well- developed Head exam: PRESENT: atraumatic, normocephalic Ear exam: PRESENT: normal external ear exam. ABSENT: bleeding, drainage Mouth exam: PRESENT: moist, tongue midline Respiratory exam: PRESENT: rales - Left base, symmetrical, unlabored. ABSENT: rhonchi, tachypnea, wheezes Cardiovascular exam: PRESENT: RRR, +S1, +S2. ABSENT: bradycardia, diastolic murmur, irregular rhythm, systolic murmur, tachycardia GI/Abdominal exam: PRESENT: normal bowel sounds, soft. ABSENT: distended, guarding, tenderness Rectal exam: PRESENT: deferred Gentrourinary exam: ABSENT: indwelling catheter Extremities exam: ABSENT: calf tenderness, pedal edema Musculoskeletal exam: PRESENT: ambulatory, normal inspection. ABSENT: deformity, dislocation Neurological exam: PRESENT: alert, awake, oriented to person, oriented to place, oriented to time, oriented to situation, CN II-XII grossly intact. ABSENT: altered Psychiatric exam: PRESENT: appropriate affect. ABSENT: agitated, anxious Focused psych exam: ABSENT: delusional, paranoid, restlessness Skin exam: PRESENT: dry, normal color, warm. ABSENT: rash Results Laboratory Results: 10/07/20 04:31 10/07/20 04:31 10/06/20 17:40 Throat Throat Culture - Final NORMAL TEOFILO 10/06/20 20:52 Blood Blood Culture (PCR) - Final Staphylococcus Species 10/06/20 17:40 Blood Blood Culture (PCR) - Final Staphylococcus Species 10/06/20 17:40 Troponin I < 0.012 Impressions: Chest X-Ray 10/06/20 17:36 IMPRESSION: In the appropriate clinical setting, findings are consistent with multi lobar pneumonia. This is seen on a background of chronic emphysematous changes. Assessment and Plan - Diagnosis (1) Influenza A with pneumonia Is this a current diagnosis for this admission?: Yes (2) Acute respiratory failure with hypoxia and hypercapnia Is this a current diagnosis for this admission?: Yes (3) COPD exacerbation Is this a current diagnosis for this admission?: Yes (4) Transaminitis Is this a current diagnosis for this admission?: Yes (5) Tobacco abuse Is this a current diagnosis for this admission?: Yes - Plan Summary Summary: (1) Influenza A with pneumonia Is this a current diagnosis for this admission?: Yes Plan: Chest x-ray reviewed showing multifocal pneumonia. Appears atypical in nature. Tested positive for influenza A. Start on Tamiflu Tested for COVID-19 as well Blood cultures and sputum cultures. (2) Acute respiratory failure with hypoxia and hypercapnia Is this a current diagnosis for this admission?: Yes Plan: Noted to be hypoxic on 4 L and transitioned right to BiPAP. On exam and after assessing his blood gas, does not require BiPAP at this time he is not having any work of breathing and mentating very well. Mild hypercapnia noted on blood gas. We will take him off BiPAP and put him on a Ventimask and possibly even de- escalate back to nasal cannula if tolerated. Goal SPO2 88 to 92% (3) COPD exacerbation Is this a current diagnosis for this admission?: Yes Plan: Received steroids and nebulizer treatment in the ER. We will continue duo nebs, Solu-Medrol and placed on azithromycin. Will monitor. (4) Transaminitis Is this a current diagnosis for this admission?: Yes Plan: Mild likely secondary to viral infection. Will monitor. (5) Tobacco abuse Is this a current diagnosis for this admission?: Yes Plan: Nicotine patch provided 10/07/2020 Patient is still exhibiting increased work of breathing. Despite positive infl uenza test he is being tested for COVID-19. Continue Tamiflu. Ceftriaxone and azithromycin as well as supplements until Covid serology returns. If negative then discontinue antibiotic therapy unless suspicion of bacterial pneumonia. Respiratory failure-continue oxygen supplementation. Taper to room air as tolerated. Maintain saturation 88 to 92% COPD exacerbation treated with IV steroids, nebulizers and antibiotics/antiviral therapy as above Continue nicotine patch Monitor transaminases. 10/08/2020 Influenza A with negative Covid serology. Will continue antibiotic therapy for the COPD component.. Respiratory failure-continue to wean oxygen to room air. Continue steroids for COPD exacerbation. Nebulizer treatments and azithromycin as well. Recheck serum chemistries and CBC tomorrow. Continue nicotine patch. - Time Time Spent with patient: Less than 15 minutes Medications reviewed and adjusted accordingly: Yes Anticipated Discharge Disposition: Home, Self Care Anticipated Discharge Timeframe: within 72 hours
[2020-10-08] MEDS: AZITHROMYCIN 250 MG in DEXTROSE 5%-WATER 250 ML IV SCH (21:47)
[2020-10-09] MEDS: IPRATROPIUM/ALBUTEROL 0.5-2.5 MG/3 ML AMPUL NEB SCH ×3 (02:50→14:07)
[2020-10-09 06:08] LABS: HEMATOCRIT 42.7 % (37.9-51.0); HEMOGLOBIN 14.6 g/dL (13.5-17.0); MEAN CORPUSCULAR HEMOGLOBIN 28.9 pg (27.0-33.4); MEAN CORPUSCULAR HGB CONC 34.1 g/dL (32.0-36.0); MEAN CORPUSCULAR VOLUME 85 fl (80-97); PLATELET COUNT 306 10^3/uL (150-450); RED BLOOD COUNT 5.05 10^6/uL (4.35-5.55); RED CELL DISTRIBUTION WIDTH 13.7 % (11.5-14.0); WHITE BLOOD COUNT 14.3 10^3/uL (4.0-10.5)
[2020-10-09 06:25] LABS: ANION GAP 9 (5-19); BLOOD UREA NITROGEN 20 mg/dL (7-20); CALCIUM 8.9 mg/dL (8.4-10.2); CARBON DIOXIDE 30 mmol/L (22-30); CHLORIDE 94 mmol/L (98-107); GLUCOSE 290 mg/dL (75-110); POTASSIUM 4.7 mmol/L (3.6-5.0)
[2020-10-09 06:35] LABS: ABSOLUTE LYMPHOCYTES# (MANUAL) 1.7 10^3/uL (0.5-4.7); ABSOLUTE MONOCYTES # (MANUAL) 0.1 10^3/uL (0.1-1.4); BAND NEUTROPHILS % (MANUAL) 1 % (3-5); BASOPHILS % (MANUAL) 0 % (0-2); EOSINOPHILS % (MANUAL) 0 % (0-6); LYMPHOCYTES % (MANUAL) 9 % (13-45); MONOCYTES % (MANUAL) 1 % (3-13); PLATELET COMMENT ADEQUATE; RBC MORPHOLOGY COMMENT NORMO-CYTIC/CHROMIC; SEGMENTED NEUTROPHILS % (MAN) 86 % (42-78); TOTAL CELLS COUNTED 100
[2020-10-09] MEDS: CHLORTHALIDONE 25 MG TABLET PO SCH (07:45)
[2020-10-09 09:15] VITALS: BP 161/81
[2020-10-09] MEDS: NICOTINE 7 MG/24 HR PATCH.TD24 TD SCH (09:37)
[2020-10-09] MEDS: ENOXAPARIN SODIUM INJ 40 MG/0.4 ML DISP.SYRIN SUBCUT SCH (09:37)
[2020-10-09] MEDS: METHYLPREDNISOLONE INJ 40 MG/1 ML SDV IV SCH (09:37)
[2020-10-09] MEDS: ASCORBIC ACID 500 MG TABLET PO SCH (09:37)
[2020-10-09] MEDS: CHOLECALCIFEROL (D3) 1,000 UNIT (25 MCG) TABLET PO SCH (09:37)
[2020-10-09] MEDS: OSELTAMIVIR PHOSPHATE 75 MG CAPSULE PO SCH (09:41)
[2020-10-09] MEDS: ZINC SULFATE 220 MG CAPSULE PO SCH (09:44)
--- NOTE | 2020-10-09 11:31 | PDOC DISCHARGE SUMMARY ---
Impression - Admit/DC Date/PCP Admission Date/Primary Care Provider: 10/06/20 20:18 CHRISTOPHER CARLISLE MD Discharge Date: 10/09/20 - Discharge Diagnosis (1) Influenza A with pneumonia Is this a current diagnosis for this admission?: Yes (2) Acute respiratory failure with hypoxia and hypercapnia Is this a current diagnosis for this admission?: Yes (3) COPD exacerbation Is this a current diagnosis for this admission?: Yes (4) Transaminitis Is this a current diagnosis for this admission?: Yes (5) Tobacco abuse Is this a current diagnosis for this admission?: Yes (6) Hypertension Is this a current diagnosis for this admission?: Yes - Additional Information Resuscitation Status: Full Code Discharge Diet: As Tolerated, Cardiac Discharge Activity: Activity As Tolerated Referrals: CHRISTOPHER CARLISLE MD [Primary Care Provider] - Follow up as needed Prescriptions: Prednisone [Deltasone 20 mg Tablet] 40 mg PO DAILY 2 Days #4 tablet Chlorthalidone [Hygroton 25 mg Tablet] 25 mg PO QAM #30 tablet Albuterol Sulfate [Proair HFA Inhalation Aerosol 8.5 gm MDI] 1 puff IH Q6HP PRN #1 inhaler PRN Reason: Shortness Of Breath Budesonide [Pulmicort 90 mcg Flexhaler] 1 inh IH DAILY #1 aer.pow.ba Oseltamivir Phosphate [Tamiflu 75 mg Capsule] 75 mg PO BID 2 Days #4 capsule Home Medications: Fluticasone Propionate [Flonase Nasal Clayton 50 Mcg/Cl[place]ton 16 gm] 1 spray NASL DAILY 10/07/20 Albuterol Sulfate [Proair HFA Inhalation Aerosol 8.5 gm MDI] 1 puff IH Q6HP PRN #1 inhaler 10/09/20 Budesonide [Pulmicort 90 mcg Flexhaler] 1 inh IH DAILY #1 aer.pow.ba 10/09/20 Chlorthalidone [Hygroton 25 mg Tablet] 25 mg PO QAM #30 tablet 10/09/20 Oseltamivir Phosphate [Tamiflu 75 mg Capsule] 75 mg PO BID 2 Days #4 capsule 10/09/20 Prednisone [Deltasone 20 mg Tablet] 40 mg PO DAILY 2 Days #4 tablet 10/09/20 History of Present Illiness History of Present Illness: JANETH VARGAS is a 65 year old male with history of COPD not on home oxygen, distant history of endocarditis over 5 years ago, who presents to the hospital with complaints of worsening cough and shortness of breath for the past few days. He has also been having muscle aches. He endorses some rhinorrhea and nasal congestion which seem to be resolving at this point. However he shortness of breath progressed prompting his evaluation in the ER. On presentation he was noted to be significantly hypoxic at 81% on room air. He was subsequently placed on 4 L nasal cannula with SPO2 still in the mid 80s and then placed on BiPAP. At time of encounter, patient appears comfortable and ambulating in the room. He denies any sick contacts. He denies any fevers. Does admit to fatigue. The only medication he takes his albuterol inhaler and nasal spray. Hospital Course Hospital Course: Patient was admitted to the hospital for acute onset shortness of breath. This was also combined with cough and wheezing. On initial presentation patient was noted to be significantly hypoxic requiring placement on BiPAP intermittently. He was able to be deescalated off BiPAP after only a couple of hours and placed on Ventimask for which she was transitioned to nasal cannula. Blood work at that time was mostly remarkable for mild transaminitis suspected to be viral and ABG showing mild hypercapnia with PCO2 of 54, pH of 7.36 and PO2 of 145 on 70% FiO2 while on the BiPAP. Chest x-ray revealed atypical pneumonia. Nasopharyngeal swab showed positive for influenza A. We will start the patient was experiencing hypoxia secondary to influenza A pneumonia which has propagated a COPD exacerbation. Patient was given adequate treatment with oxygen support, Tamiflu, IV steroids, duo nebs and azithromycin which was for his exacerbation. COVID-19 test was negative. Patient has done well and he is hypoxic respiratory failure has currently resolved. He has been doing well on room air throughout yesterday and today. He is feeling much better and ready to be discharged home. Have discussed with him that he will need to continue the Tamiflu and steroids. I have also mentioned to him that I would like to start him on a controller inhaler Pulmicort. He states he does not have insurance but he will try to pick this up soon. He states his insurance kicks in in February. I have stressed the importance of this medication and limiting his COPD exacerbations. He has albuterol inhalers at home but I have given him an extra prescription if he needs any refills. He has received 4 days of azithromycin which I will discontinue at this point. We will continue steroids for 2 more days. He has received instructions on isolation and wearing wearing facemask during his encounters to limit spread of flu. Also started on chlorthalidone for hypertension. Physical Exam Vital Signs: Temp Pulse Resp BP Pulse Ox 97.2 F 82 18 161/81 H 92 10/09/20 08:00 10/09/20 08:43 10/09/20 08:43 10/09/20 08:00 10/09/20 08:43 Intake & Output 10/08/20 10/09/20 10/10/20 06:59 06:59 06:59 Intake Total 620 2060 Balance 620 2060 Weight 84.7 kg 84.7 kg General appearance: PRESENT: no acute distress, cooperative Neck exam: ABSENT: JVD Respiratory exam: PRESENT: unlabored. ABSENT: accessory muscle use, retraction, tachypnea, wheezes Cardiovascular exam: PRESENT: RRR, +S1, +S2. ABSENT: tachycardia GI/Abdominal exam: PRESENT: soft. ABSENT: tenderness Neurological exam: PRESENT: alert, awake Results Laboratory Results: WBC 14.3 10^3/uL (4.0-10.5) H 10/09/20 05:38 RBC 5.05 10^6/uL (4.35-5.55) 10/09/20 05:38 Hgb 14.6 g/dL (13.5-17.0) 10/09/20 05:38 Hct 42.7 % (37.9-51.0) 10/09/20 05:38 MCV 85 fl (80-97) 10/09/20 05:38 MCH 28.9 pg (27.0-33.4) 10/09/20 05:38 MCHC 34.1 g/dL (32.0-36.0) 10/09/20 05:38 RDW 13.7 % (11.5-14.0) 10/09/20 05:38 Plt Count 306 10^3/uL (150-450) 10/09/20 05:38 Lymph % (Auto) Not Reportable 10/09/20 05:38 [place] % (Auto) Not Reportable 10/09/20 05:38 Eos % (Auto) Not Reportable 10/09/20 05:38 Baso % (Auto) Not Reportable 10/09/20 05:38 Absolute Neuts (auto) Not Reportable 10/09/20 05:38 Absolute Lymphs (auto) Not Reportable 10/09/20 05:38 Absolute Monos (auto) Not Reportable 10/09/20 05:38 Absolute Eos (auto) Not Reportable 10/09/20 05:38 Absolute Basos (auto) Not Reportable 10/09/20 05:38 Total Counted 100 10/09/20 05:38 Seg Neutrophils % Not Reportable 10/09/20 05:38 Seg Neuts % (Manual) 86 % (42-78) H 10/09/20 05:38 Band Neutrophils % 1 % (3-5) L 10/09/20 05:38 Lymphocytes % (Manual) 9 % (13-45) L 10/09/20 05:38 Atypical Lymphs % 3 % (0) 10/09/20 05:38 Monocytes % (Manual) 1 % (3-13) L 10/09/20 05:38 Eosinophils % (Manual) 0 % (0-6) 10/09/20 05:38 Basophils % (Manual) 0 % (0-2) 10/09/20 05:38 Abs Neuts (Manual) 12.4 10^3/uL (1.7-8.2) H 10/09/20 05:38 Abs Lymphs (Manual) 1.7 10^3/uL (0.5-4.7) 10/09/20 05:38 Abs Monocytes (Manual) 0.1 10^3/uL (0.1-1.4) 10/09/20 05:38 Absolute Eos (Manual) 0.0 10^3/uL (0.0-0.6) 10/09/20 05:38 Abs Basophils (Manual) 0.0 10^3/uL (0.0-0.2) 10/09/20 05:38 Platelet Comment ADEQUATE 10/09/20 05:38 RBC Morph Comment NORMO-CYTIC/CHROMIC 10/09/20 05:38 D-Dimer 0.64 ug/mL (0.00-0.50) H 10/07/20 04:31 Carbonic Acid 1.63 mmol/L (1.05-1.35) H 10/06/20 17:54 HCO3/H2CO3 Ratio 18:1 10/06/20 17:54 ABG pH 7.36 (7.35-7.45) 10/06/20 17:54 ABG pCO2 54.3 mmHg (35-45) H 10/06/20 17:54 ABG pO2 145.9 mmHg (80-100) H 10/06/20 17:54 ABG HCO3 29.8 mmol/L (20-24) H 10/06/20 17:54 ABG Total CO2 31.4 mmol/L (23-27) H 10/06/20 17:54 ABG O2 Saturation 98.7 % (94-98) H 10/06/20 17:54 ABG Base Excess 2.7 mmol/L 10/06/20 17:54 FiO2 70% 10/06/20 17:54 Sodium 133.2 mmol/L (137-145) L 10/09/20 05:38 Potassium 4.7 mmol/L (3.6-5.0) 10/09/20 05:38 Chloride 94 mmol/L (98-107) L 10/09/20 05:38 Carbon Dioxide 30 mmol/L (22-30) 10/09/20 05:38 Anion Gap 9 (5-19) 10/09/20 05:38 BUN 20 mg/dL (7-20) 10/09/20 05:38 Creatinine 0.58 mg/dL (0.52-1.25) 10/09/20 05:38 Est GFR ( Amer) > 60 (>60) 10/09/20 05:38 Est GFR (MDRD) Non-Af > 60 (>60) 10/09/20 05:38 Glucose 290 mg/dL (75-110) H 10/09/20 05:38 Calcium 8.9 mg/dL (8.4-10.2) 10/09/20 05:38 Phosphorus 3.3 mg/dL (2.5-4.5) 10/07/20 04:31 Magnesium 2.0 mg/dL (1.6-2.3) 10/09/20 05:38 Total Bilirubin 0.4 mg/dL (0.2-1.3) 10/07/20 04:31 Direct Bilirubin 0.2 mg/dL (0.0-0.4) 10/07/20 04:31 Neonat Total Bilirubin Not Reportable 10/07/20 04:31 Neonat Direct Bilirubin Not Reportable 10/07/20 04:31 Neonat Indirect Bili Not Reportable 10/07/20 04:31 AST 43 U/L (17-59) 10/07/20 04:31 ALT 64 U/L (<50) H 10/07/20 04:31 Alkaline Phosphatase 80 U/L (38-126) 10/07/20 04:31 Troponin I < 0.012 ng/mL 10/06/20 17:40 Total Protein 6.4 g/dL (6.3-8.2) 10/07/20 04:31 Albumin 3.2 g/dL (3.5-5.0) L 10/07/20 04:31 COVID-19 Source See comment 10/06/20 17:40 COVID-19 ([facility]) Not Detected (Not Detect) 10/06/20 17:40 Influenza A (Rapid) POSITIVE (NEGATIVE) 10/06/20 17:40 Influenza B (Rapid) NEGATIVE (NEGATIVE) 10/06/20 17:40 Group A Strep Rapid NEGATIVE (NEGATIVE) 10/06/20 17:40 10/06/20 17:40 Troponin I < 0.012 Impressions: Chest X-Ray 10/06/20 17:36 IMPRESSION: In the appropriate clinical setting, findings are consistent with multi lobar pneumonia. This is seen on a background of chronic emphysematous changes. Plan Time Spent: Less than 30 Minutes Stroke Is this a Stroke Patient?: No Acute Heart Failure Is this a Heart Failure Patient?: No
[2020-10-09] MEDS ORDERED: AZITHROMYCIN 250 MG TABLET PO ONE (12:30)
[2020-10-09] MEDS: FLUTICASONE NASAL SPRAY 50 MCG/SPRY 120 SPRAY/16 GM NASL SCH (14:10)
== END 2020-10-09 14:15 | disposition home or self-care (01) | DRG 193 ==
LOC: ER 17:09 → EH 20:18 → 3W 10-07 15:42 → 4S 10-08 18:57
PROVIDERS: ADMIT Internal Medicine; ATTEND Internal Medicine
PROC: 5A09357 Assistance with Respiratory Ventilation, Less than 24 Consecutive Hours, Continuous Positive Airway Pressure (ICD-10-PCS; principal; 2020-10-06)
DX: J10.00 Influenza due to other identified influenza virus with unspecified type of pneumonia (principal); J96.01 Acute respiratory failure with hypoxia; J96.02 Acute respiratory failure with hypercapnia; J44.1 Chronic obstructive pulmonary disease with (acute) exacerbation; J44.0 Chronic obstructive pulmonary disease with (acute) lower respiratory infection; F17.200 Nicotine dependence, unspecified, uncomplicated; I10 Essential (primary) hypertension; R74.01 Elevation of levels of liver transaminase levels; M19.90 Unspecified osteoarthritis, unspecified site; Z20.828 Contact with and (suspected) exposure to other viral communicable diseases; Z88.0 Allergy status to penicillin; Z86.14 Personal history of Methicillin resistant Staphylococcus aureus infection; Z82.49 Family history of ischemic heart disease and other diseases of the circulatory system; Z79.51 Long term (current) use of inhaled steroids
CPT/HCPCS: 36415; 71045; 80048; 80053; 82803; 83735; 84100; 84484; 85025; 85379; 87040; 87070; 87077; 87150; 87186; 87205; 87635; 87804; 87880; 93005; 93010; 94640; 96374; 99285; C9803; J0456; J0696; J1650; J2405; J2920; J2930; J3490; J7060